=== PATIENT | male | born 1955 | race Caucasian/White ===

== ENCOUNTER → 2016-06-25 | Outpatient (CLI) | payer OTHER ==
[~2016-06-25] MED LIST: AMLO-110 PO; CHOL100027 PO; FLNIN NAE; HYDR12.55 PO; LISI-461 PO; MELO15TA10 PO; MULT-618 PO; Potassium PO; RANI150T3 PO
--- NOTE | 2016-06-25 08:41 | DIAGNOSTIC IMAGING REPORT ---
CHEST 2 VIEWS ROUTINE CLINICAL HISTORY: Preoperative evaluation. COMPARISON STUDY: Chest radiograph April 13, 2013. FINDINGS: Lung volumes are normal. No consolidation is identified. There is no pneumothorax or pleural effusion. Cardiac size is normal. Mediastinal contours are normal. There is no evidence of pulmonary edema. An 8 mm nodular density projects over the right upper lung. IMPRESSION: 1. 8 mm nodular density within the right upper lung. This is probably artifactual although a pulmonary nodule could appear similar. A chest CT is recommended. 2. No acute cardiopulmonary findings. Electronically signed by: Turner Boyd M.D. 06/25/2016 8:39 AM Dictated Date/Time: 06/25/2016 8:36 AM
[2016-06-25 09:38] LABS: BASO % 0.5 %; BASO ABS # 0.04 K/uL (0-0.2); COMPLETE YES; EOS % 2.6 %; HEMATOCRIT 46.7 % (42-52); IG% 0.1 %; LYMPH ABS # 2.99 K/uL (1.2-3.4); MEAN CELL VOLUME 90.5 fL (80-100); MEAN CORPUSCULAR HEMOGLOBIN 31.6 pg (25-34); MEAN CORPUSCULAR HGB CONC 34.9 g/dl (32-36); MEAN PLATELET VOLUME 9.9 fL (7.4-10.4); MONO % 6.7 %; NEUT % 51.1 %; PLATELET COUNT 290 K/uL (130-400); RED BLOOD COUNT 5.16 M/uL (4.7-6.1); WHITE BLOOD COUNT 7.66 K/uL (4.8-10.8)
[2016-06-25 10:03] LABS: BLOOD UREA NITROGEN 18 mg/dl (7-18); GLUCOSE 95 mg/dl (70-99)
[2016-06-25 10:04] LABS: BUN/CREATININE RATIO 17.7 (10-20); CALCIUM 8.9 mg/dl (8.5-10.1); CARBON DIOXIDE 29 mmol/L (21-32); CHLORIDE 107 mmol/L (98-107); POTASSIUM 3.8 mmol/L (3.5-5.1); SODIUM 141 mmol/L (136-145)
== END | disposition home or self-care (01) ==
LOC: C.LAB 07:50
PROVIDERS: ATTEND Orthopaedic Surgery
DX: Z01.810 Encounter for preprocedural cardiovascular examination (principal); Z01.811 Encounter for preprocedural respiratory examination; Z01.812 Encounter for preprocedural laboratory examination; M25.511 Pain in right shoulder; R91.8 Other nonspecific abnormal finding of lung field; R00.1 Bradycardia, unspecified

== ENCOUNTER → 2016-06-29 | Outpatient (CLI) | payer OTHER ==
--- NOTE | 2016-06-29 15:37 | DIAGNOSTIC IMAGING REPORT ---
CHEST 2 VIEWS ROUTINE CLINICAL HISTORY: ABNORMAL CXR lung nodule COMPARISON STUDY: 06/25/2016 FINDINGS: Nodule right apex is no longer identified. Lungs are considered clear. Diaphragms are smooth. IMPRESSION: Lungs are now considered clear. No evidence for pulmonary nodularity on the current study Electronically signed by: Michael Goodwin M.D. 06/29/2016 3:34 PM Dictated Date/Time: 06/29/2016 3:34 PM
== END | disposition home or self-care (01) ==
LOC: C.RAD 15:18
PROVIDERS: ATTEND Family Medicine
DX: R93.8 Abnormal findings on diagnostic imaging of other specified body structures (principal)

== ENCOUNTER 2018-04-20 11:36 | Inpatient (IN) ==
[2018-04-20] MEDS ORDERED: ASPIRIN CHEW 324 MG ONE (11:49)
[2018-04-20] MEDS ORDERED: NITROGLYCERIN SL 0.4 MG/TAB TAB ONE (11:49)
[2018-04-20] MEDS ORDERED: ASPIRIN CHEW 324 MG PO STA (11:51)
[2018-04-20] MEDS ORDERED: NITROGLYCERIN SL 0.4 MG/TAB TAB SL STA (11:51)
[2018-04-20 12:03] LABS: Basophils # (auto) 0.07 K/uL (0-0.2); Basophils % (auto) 0.8 %; Eosinophils # (auto) 0.42 K/uL (0-0.5); Eosinophils % (auto) 4.7 %; Hematocrit (blood only) 50.2 % (42-52); Hemoglobin 17.4 g/dL (14.0-18.0); Immature Granulocytes # (auto) 0.02 K/uL (0.00-0.02); Immature Granulocytes % (auto) 0.2 %; Lymphocytes # (auto) 3.19 K/uL (1.2-3.4); Lymphocytes % (auto) 35.9 %; Mean Corpuscular Hgb Conc 34.7 g/dL (32-36); Mean Corpuscular Volume 89.5 fL (80-100); Mean Platelet Volume 9.9 fL (7.4-10.4); Monocytes # (auto) 0.62 K/uL (0.11-0.59); Neutrophils # (auto) 4.57 K/uL (1.4-6.5); Neutrophils % (auto) 51.4 %; Platelet Count 273 K/uL (130-400); RDW Standard Deviation 42.4 fL (36.4-46.3); Red Blood Count 5.61 M/uL (4.7-6.1); White Blood Count 8.89 K/uL (4.8-10.8)
[2018-04-20 12:21] LABS: Albumin Level 3.7 gm/dl (3.4-5.0); Calcium 9.4 mg/dl (8.5-10.1); Creatinine Clr Calc Pharmacy 75.2 ml/min; Est GFR (African American) 84.8; Est GFR (Non-African American) 73.2; Potassium 3.5 mmol/L (3.5-5.1)
--- NOTE | 2018-04-20 12:31 | XRay Report ---
XR chest 1V portable CLINICAL HISTORY: Chest Pain dyspnea COMPARISON STUDY: 04/13/2013 FINDINGS: Chronic interstitial change left base. Lungs otherwise appear clear. Diaphragms are smooth. IMPRESSION: Chronic change. No acute process. The above report was generated using voice recognition software. It may contain grammatical, syntax or spelling errors. Electronically signed by: Michael Goodwin M.D. 04/20/2018 12:30 PM
[2018-04-20 12:38] LABS: Albumin Globulin Ratio 0.9 (0.9-2); Bilirubin,Total 0.8 mg/dl (0.2-1); Total Protein 7.7 gm/dl (6.4-8.2); Troponin I 0.136 ng/ml (0-0.045)
[2018-04-20] MEDS ORDERED: METOPROLOL TARTRATE 1 MG/ML VIAL IV STA (12:44)
[2018-04-20] MEDS ORDERED: NITROGLYCERIN 2% OINTMENT 30GM TUBE EXT SCH (12:45)
[2018-04-20] MEDS ORDERED: MIDAZOLAM HCL 1 MG/ML 2ML VIAL ONE (12:57)
[2018-04-20] MEDS ORDERED: NiCARDipine HCL INJ 2.5 MG/ML 10 ML AMP ONE (12:58)
[2018-04-20] MEDS ORDERED: fentaNYL citrate 100 MCG/2 ML VIAL ONE (12:58)
[2018-04-20] MEDS ORDERED: NITROGLYCERIN/D5W 100MCG/ML 20ML SYR ONE (12:58)
[2018-04-20] MEDS ORDERED: HEPARIN (PORCINE) 1000 UNIT/ML 10 ML (CATH LAB USE ONLY) ONE (12:58)
[2018-04-20] MEDS ORDERED: TICAGRELOR 90 MG TAB PO ONE (13:38)
--- NOTE | 2018-04-20 14:05 | Cardiac Catheterization ---
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 Pt was found to have a 90% RCA stenosis which was direct stented by a 3.0X15 mm ROZ and post dil with a 3.5x12mm NC balloon. 0% risedual stenosis with marjorie 3 flow CAD Presenation: Non STEMI Standard Exercise Test: No and Risk/Extent of Ischemia Stress Echocardiogram: No, Yes - Unavailable and Risk/Extent of Ischemia ( Intermediate) Stress Testing w/SPECT MPI: No and Risk/Extent of Ischemia (Intermediate) Coronary Anatomy Dominant: Right LAD (% Stenosis): Proximal RCA (% Stenosis): Mid (90%) Left Ventricular Angiography Wall Motion: Anterior Mitral Regurgitation: None Diagnostic Physicians Name: Macie Covington Closure Device Closure Device: Radial Band Recommendations: Medical Therapy and/or Counseling, PCI without planned CABG and Management Recommendatons PCI Indication: Unstable Angina First Noted: Subsequent EKG Lesion Segment Name: Mid RCA Culprit Artery: Yes Stenosis Prior to Rx (%): 90 Chronic Total Occlusion: No IVUS: No FFR: No Previously Treated Lesion: No Lesion Complexity: Non-High/Non-C Lesion Length (mm): 12 Thrombus Present: Yes Bifurcation Lesion: No Guidewire Across Lesion: Yes
--- NOTE | 2018-04-20 14:21 | History & Physical Report ---
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 Home Medications Home Medications Medication Instructions Recorded Confirmed Type amlodipine 5 mg PO QAM 04/20/18 04/20/18 History atorvastatin 20 mg PO HS 04/20/18 04/20/18 History cyclobenzaprine 10 mg PO HS PRN 04/20/18 04/20/18 History fluticasone [Flonase Allergy 2 spray INTRANASAL QAM 04/20/18 04/20/18 History Relief] lisinopril 20 mg PO QAM 04/20/18 04/20/18 History meloxicam 15 mg PO QAM 04/20/18 04/20/18 History rdkhjjnu-imq-EF-lycopen-lutein 1 tab PO QAM 04/20/18 04/20/18 History [Centrum Silver Ultra Men's] potassium 0 mg PO QAM 04/20/18 04/20/18 History ranitidine HCl 150 mg PO BID 04/20/18 04/20/18 History Past Med/Surg History Social History Feels Safe at Home: Yes Smoking Status: Former smoker Review of Systems All systems reviewed & are unremarkable except as noted in HPI & below Physical Exam 2 Vital Signs (Past 24 Hours): Last Vital Signs Pulse 71 04/20/18 12:52 Resp 17 04/20/18 11:45 BP 125/85 04/20/18 12:52 Pulse Ox 93 04/20/18 12:52 Constitutional: WD/WN, vitals as above well developed Eyes: PERRL, conjunctivae normal, anicteric sclerae Respiratory: normal respiratory effort, lungs clear to auscultation Cardiovascular: RRR, no murmur, no edema Gastrointestinal (Abdomen): normal bowel sounds, soft, nontender, no hepatosplenomegaly Results & Data Laboratory Results Positive trop Diagnostic Findings ekg nsr with st d lat Medications Administered none ECG Indication: chest pain Rate (beats per minute): 90 Rhythm: normal sinus Findings: + ST depression Comparison ECG Date: no prior available Code Status & VTE Plan VTE Prophylaxis Plan VTE Prophylaxis will be ordered: No
[2018-04-20] MEDS ORDERED: ACETAMINOPHEN 325 MG TAB PO PRN (14:58)
[2018-04-20] MEDS ORDERED: TICAGRELOR 90 MG Homepack PO PRN (15:17)
[2018-04-20] MEDS ORDERED: ALBUTEROL HFA 8 GM INHALER INH PRN (15:36)
--- NOTE | 2018-04-20 15:50 | History & Physical Report ---
Date of Service April 20, 2018 Assessment & Plan (1) NSTEMI (non-ST elevated myocardial infarction): Pt had CP after carrying vanity up flight of stairs. Presented to ER with ST depression in inferior leads and troponin: 0.136. He received nitro, ASA 324mg, metoprolol 2.5mg IV. Pt was taken to lab analyst and had RJ to RCA. Post op pt reports feeling good and denies any chest pain or SOB. -cardiology recommends ASA 81mg daily lifelong, simvastatin 40mg, ticagrelor 90 BID x 1 year -lipid panel in am -cardiology consult, appreciate recommendations (2) HTN (hypertension): Stable -continue amlodipine -hold am lisinopril and monitor BP and bmp (3) Dyslipidemia: -continue statin (4) Elevated glucose: Random BS -A1c in am (5) COPD (chronic obstructive pulmonary disease): No exacerbation -continue spiriva, albuterol prn (6) Depression: Stable -continue celexa (7) GERD (gastroesophageal reflux disease): -continue ranitadine DVT Prophylaxis -SCDs Follows with Dr Naranjo for routine care Pt was seen with Dr Benson. See addendum History of Present Illness Chief Complaint: CP Primary Care Provider: Michael Naranjo Pt is 63 y/o M with PMH COPD, BPH, HTN, dyslipidemia, depression, GERD presented to ER with c/o CP started approx 11am today after carrying vanity up stairs. Reports pain left side chest and was constant, relieved a little when arrived in ER and reports CP returned. 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 Denies fever/chills, diaphoresis, N/V/D/C, HUYNH, dizziness, syncope, vision changes, neck pain, palpitations, cough, sore throat, choking, otalgia, rhinorrhea, abdominal pain, paresthesias, extremity weakness, extremity edema, rashes, urinary symptoms. FH- fatal CT father age 58 In ER reported EKG changes with elevated troponin. He received nitro, ASA 324mg , metoprolol 2.5mg IV. Pt was taken to lab analyst and had RJ to RCA. Post op pt reports feeling good and denies any chest pain or SOB. Allergies Allergy/AdvReac Type Severity Reaction Status Date / Time hydrochlorothiazide Allergy Intermediate Muscle Verified 04/20/18 12:37 cramping. Home Medications Home Medications Medication Instructions Recorded Confirmed Type albuterol sulfate 2 puff INHALATION Q6H PRN 04/20/18 04/20/18 History amlodipine 5 mg PO QAM 04/20/18 04/20/18 History atorvastatin 20 mg PO HS 04/20/18 04/20/18 History citalopram [Celexa] 10 mg PO DAILY 04/20/18 04/20/18 History cyclobenzaprine 10 mg PO HS PRN 04/20/18 04/20/18 History fluticasone [Flonase Allergy 2 spray INTRANASAL QAM 04/20/18 04/20/18 History Relief] lisinopril 20 mg PO QAM 04/20/18 04/20/18 History meloxicam 15 mg PO QAM 04/20/18 04/20/18 History whebuxat-ils-GG-lycopen-lutein 1 tab PO QAM 04/20/18 04/20/18 History [Centrum Silver Ultra Men's] potassium 0 mg PO QAM 04/20/18 04/20/18 History ranitidine HCl 150 mg PO BID 04/20/18 04/20/18 History tiotropium bromide [Spiriva with 1 cap INHALATION DAILY 04/20/18 04/20/18 History HandiHaler] aspirin [Ecotrin Low Strength] 81 mg PO QAM 30 Days #30 tab 04/21/18 Rx atorvastatin 40 mg PO QAM 30 Days #30 tab 04/21/18 Rx metoprolol succinate 12.5 mg PO BID 30 Days #30 tab 04/21/18 Rx nitroglycerin [Nitrostat] 0.3 mg SUBLINGUAL UD #14 tab 04/21/18 Rx ticagrelor [Brilinta] 90 mg PO BID 30 Days #60 tab 04/21/18 Rx Past Med/Surg History Medical History BPH (benign prostatic hyperplasia) (Chronic) COPD (chronic obstructive pulmonary disease) (Chronic) Depression (Chronic) GERD (gastroesophageal reflux disease) (Chronic) HTN (hypertension) (Chronic) Dyslipidemia (Chronic) Surgical History History of arthroscopy of knee (Resolved) History of shoulder surgery (Resolved) History of inguinal hernia repair (Resolved) Family History Other CAD (coronary artery disease) Diabetes HTN (hypertension) Stroke Social History Current Living Situation: Spouse Other Information That Helps Us Care for You: No Feels Safe at Home: Yes Smoking Status: Former smoker Smoking End Date: Quit 2010. Smoked 1ppd x 41 years Hx Alcohol Use: Yes Alcohol Intake Frequency: a few times a month Hx Substance Use: Yes substance use type: marijuana Beliefs That Will Affect Care: None Preferred Language: Serbian Communication Ability: Effective Review of Systems All systems reviewed & are unremarkable except as noted in HPI & below Physical Exam 2 Vital Signs (Past 24 Hours): Last Vital Signs Temp 36.4 C L 04/20/18 14:15 Pulse 68 04/20/18 14:15 Resp 18 04/20/18 14:15 BP 122/80 04/20/18 14:15 Pulse Ox 96 04/20/18 14:15 Physical Exam: General: no distress, WDWN Head: normocephalic, atraumatic Eyes: conjunctiva non-injected, anicteric ENT: normal inspection external ears, nose, mucous membranes moist Neck: supple, trachea midline Lungs: clear, no respiratory distress, no wheezing/rhonchi/rales CV: RRR, no murmur, no pretibial edema Abd: normal BS, soft, non-tender Ext: no cyanosis, no calf tenderness; Right wrist with pressure band intact with slight red blood noted under band, ROM fingers intact, brisk capillary refill Neuro: A&O x 3, no focal deficits noted, normal affect Skin: warm, dry Results & Data Laboratory Results Short CBC 04/20/18 Range/Units 11:45 WBC 8.89 (4.8-10.8) K/uL Hgb 17.4 (14.0-18.0) g/dL Hct 50.2 (42-52) % Plt Count 273 (130-400) K/uL BMP 04/20/18 11:45 Sodium 140 Potassium 3.5 Chloride 107 Carbon Dioxide 25 BUN 21 H Creatinine 1.08 Glucose 136 H Calcium 9.4 Cardiac Enzymes 04/20/18 Range/Units 11:45 Troponin I 0.136 H* (0-0.045) ng/ml Liver Function 04/20/18 Range/Units 11:45 Total Bilirubin 0.8 (0.2-1) mg/dl AST 20 (15-37) U/L ALT 36 (12-78) U/L Alkaline Phosphatase 128 H (45-117) U/L Albumin 3.7 (3.4-5.0) gm/dl Diagnostic Findings CXR: IMPRESSION: Chronic change. No acute process. ECG Additional Comments: EKG 12:33pm today with ST depression inferior leads Code Status & VTE Plan VTE Prophylaxis Plan VTE Prophylaxis will be ordered: No Supervising Physician Co-Signing Physician Notes Attending Addendum: delayed entry date of service as noted above care coordinated with LUIS ALFREDO Mora please refer to her notes for full details, I agree with her notes patient seen and examined, records reviewed by myself as well on exam, patient seen sitting up in bed comfortable watching TV denies chest pain, dyspnea reports reflux after eating dinner no other symptoms VS noted and reviewed oriented x3, not in distress, speaks in sentences with no effort nor accessory muscle use normal rate, regular rhythm, no murmurs clear breath sounds bilaterally non distended, soft, nontender no bipedal edema, erythema, warmth no neuro deficits trop 0.13 ASSESSMENT AND PLAN ACUTE MYOCARDIAL INFARCTION S/P rj to rca - ASA, Brillinta started stable overall HYPERTENSION Metoprolol added monitor BP other diagnoses and plan of care as per LUIS ALFREDO Mora notes Morales Benson MD
--- NOTE | 2018-04-20 16:14 | Cardiology Consultation ---
Date of Consultation April 20, 2018 Assessment & Plan (1) Acute coronary syndrome: Patient presented with acute coronary syndrome with dynamic EKG changes possibly in part of marked hypertensive response as well. Is undergone successful coronary intervention for high-grade single-vessel obstruction disease with mid right coronary stenting for large caliber vessel with long distribution. Recommendations: Intensify lipid-lowering therapies changed to atorvastatin 40 mg p.o. daily Add beta-naeem to her regimen to achieve optimal guideline medical therapy. ( Beta-naeem, FATUMA inhibitor, high-dose statin, antiplatelet therapy) Cardiac rehab will be consulted Off work minimum 3-day Echocardiogram will be reviewed in a.m. (2) HTN (hypertension): As above (3) Dyslipidemia: As above History of Present Illness Reason for Consultation: Acute coronary syndrome Requesting Physician: Dr. Benson Attending Physician: Morales Benson MD History of Present Illness Patient is a 63-year-old male without prior history of cardiac disease his past history is notable for hypertension, hyperlipidemia, chronic obstructive lung disease. Patient presents this admission noting intermittent left arm and neck pain for approximately 1-2 weeks. Today after moderately vigorous exertion carrying a vanity upstairs developed substernal chest pain rating the left shoulder and neck presented to the emergency room where he marked hypertension was observed as well as non-dynamic ST segment changes with transient inferior ST elevation followed by inversion were observed. Symptoms remain persistent troponins were elevated and patient was taken urgently to the diagnostic cardiac catheterization lab where high-grade single-vessel disease was found 90% narrowing mid right coronary artery. Patient received drug-eluting stent to the right coronary successfully is referred now for ongoing management Currently patient is comfortable he denies any chest pain shortness of breath neck and shoulder pains have resolved notes no fevers chills or productive cough notes no melena hematochezia dysuria hematuria notes only change recently has been addition of medications for depression, upward titration of lipid- lowering therapy prior to hospitalization. He denies fevers chills sweats cough hoarseness wheeze or hemoptysis notes no bleeding difficulties notes no melena hematochezia dysuria hematuria Allergies Allergy/AdvReac Type Severity Reaction Status Date / Time hydrochlorothiazide Allergy Intermediate Muscle Verified 04/20/18 12:37 cramping. Home Medications Home Medications Medication Instructions Recorded Confirmed Type albuterol sulfate 2 puff INHALATION Q6H PRN 04/20/18 04/20/18 History amlodipine 5 mg PO QAM 04/20/18 04/20/18 History atorvastatin 20 mg PO HS 04/20/18 04/20/18 History citalopram [Celexa] 10 mg PO DAILY 04/20/18 04/20/18 History cyclobenzaprine 10 mg PO HS PRN 04/20/18 04/20/18 History fluticasone [Flonase Allergy 2 spray INTRANASAL QAM 04/20/18 04/20/18 History Relief] lisinopril 20 mg PO QAM 04/20/18 04/20/18 History meloxicam 15 mg PO QAM 04/20/18 04/20/18 History qgcmubuc-few-CA-lycopen-lutein 1 tab PO QAM 04/20/18 04/20/18 History [Centrum Silver Ultra Men's] potassium 0 mg PO QAM 04/20/18 04/20/18 History ranitidine HCl 150 mg PO BID 04/20/18 04/20/18 History tiotropium bromide [Spiriva with 1 cap INHALATION DAILY 04/20/18 04/20/18 History HandiHaler] Patient History Medical History BPH (benign prostatic hyperplasia) (Chronic) COPD (chronic obstructive pulmonary disease) (Chronic) Depression (Chronic) GERD (gastroesophageal reflux disease) (Chronic) HTN (hypertension) (Chronic) Dyslipidemia (Chronic) Surgical History History of arthroscopy of knee (Resolved) History of shoulder surgery (Resolved) History of inguinal hernia repair (Resolved) Family History Other CAD (coronary artery disease) Diabetes HTN (hypertension) Stroke Social History Current Living Situation: Spouse Other Information That Helps Us Care for You: No Feels Safe at Home: Yes Smoking Status: Former smoker Smoking End Date: Quit 2010. Smoked 1ppd x 41 years Hx Alcohol Use: Yes Alcohol Intake Frequency: a few times a month Hx Substance Use: Yes substance use type: marijuana Beliefs That Will Affect Care: None Preferred Language: Armenian Communication Ability: Effective Review of Systems As per HPI Physical Exam 2 Vital Signs (Past 24 Hours): Last Vital Signs Temp 36.4 C L 04/20/18 14:15 Pulse 68 04/20/18 14:15 Resp 18 04/20/18 14:15 BP 122/80 04/20/18 14:15 Pulse Ox 96 04/20/18 14:15 Constitutional: WD/WN, vitals as above Eyes: PERRL, conjunctivae normal, anicteric sclerae ENMT: external ear and nose normal, oropharynx normal Neck: trachea midline, no thyromegaly Respiratory: normal respiratory effort, lungs clear to auscultation Cardiovascular: Rate/Rhythm: regular rate and regular rhythm Heart Sounds: normal S1 and normal S2; no gallop and no cardiac rub Vessels: radial pulses present (Right radial bandaged post procedure) Gastrointestinal (Abdomen): normal bowel sounds, soft, nontender, no hepatosplenomegaly Neurologic: PERRL, EOMI, accommodation nl, no face palsy, no dysarthria Psychiatric: A+Ox3, euthymic affect
--- NOTE | 2018-04-20 16:48 | Emergency Department Note ---
Entered by Elsy Bui acting as a scribe for History of Present Illness General Chief complaint: Chest Pain Stated complaint: CHEST PAIN, L ARM PAIN Source: patient Mode of arrival: ambulatory Limitations: no limitations History of Present Illness Onset (ago): hour(s) 1 Location: chest Radiation: other (left arm) Pain Consistency: + constant Maximum Pain Intensity: 5 Current Pain Intensity: 5 Quality: + sharp Relieved By: + none Exacerbated By: + none Associated symptoms: + shortness of breath and + other (-jaw pain) Treatments prior to arrival: none The patient is a 63 year old male who presents to the Emergency Room with complaints of chest pain for the past 1 hour. He states before the pain started , he moved a dresser in his home. The pain was briefly relieved by rest, but then returned. He describes the pain as radiating down to his left arm and feeling sharp in nature. He rates his pain as a 5/10 in severity. He admits to some shortness of breath. He denies any jaw pain. He denies any previous history of heart disease or AR's. No other exacerbating or remitting factors. Home Medications Home Medications Medication Instructions Recorded Confirmed Type albuterol sulfate 2 puff INHALATION Q6H PRN 04/20/18 04/20/18 History amlodipine 5 mg PO QAM 04/20/18 04/20/18 History atorvastatin 20 mg PO HS 04/20/18 04/20/18 History citalopram [Celexa] 10 mg PO DAILY 04/20/18 04/20/18 History cyclobenzaprine 10 mg PO HS PRN 04/20/18 04/20/18 History fluticasone [Flonase Allergy 2 spray INTRANASAL QAM 04/20/18 04/20/18 History Relief] lisinopril 20 mg PO QAM 04/20/18 04/20/18 History meloxicam 15 mg PO QAM 04/20/18 04/20/18 History oxxhiavv-vra-PR-lycopen-lutein 1 tab PO QAM 04/20/18 04/20/18 History [Centrum Silver Ultra Men's] potassium 0 mg PO QAM 04/20/18 04/20/18 History ranitidine HCl 150 mg PO BID 04/20/18 04/20/18 History tiotropium bromide [Spiriva with 1 cap INHALATION DAILY 04/20/18 04/20/18 History HandiHaler] Allergies Allergy/AdvReac Type Severity Reaction Status Date / Time hydrochlorothiazide Allergy Intermediate Muscle Verified 04/20/18 12:37 cramping. Past Med/Surg History Medical History BPH (benign prostatic hyperplasia) (Chronic) COPD (chronic obstructive pulmonary disease) (Chronic) Depression (Chronic) GERD (gastroesophageal reflux disease) (Chronic) HTN (hypertension) (Chronic) Dyslipidemia (Chronic) Surgical History History of arthroscopy of knee (Resolved) History of shoulder surgery (Resolved) History of inguinal hernia repair (Resolved) Family History Other CAD (coronary artery disease) Diabetes HTN (hypertension) Stroke Social History Current Living Situation: Spouse Other Information That Helps Us Care for You: No Feels Safe at Home: Yes Smoking Status: Former smoker Smoking End Date: Quit 2010. Smoked 1ppd x 41 years Hx Alcohol Use: Yes Alcohol Intake Frequency: a few times a month Hx Substance Use: Yes substance use type: marijuana Beliefs That Will Affect Care: None Preferred Language: Malay Communication Ability: Effective Review of Systems See HPI for pertinent positives & negatives. and A total of 10 systems reviewed and were otherwise negative Physical Exam Vital Signs Vital Signs - 24 hr 04/20/18 11:37 04/20/18 11:43 04/20/18 11:44 Temperature Temperature Source Sepsis Recent Fever Within 48 Hours No Sepsis New/Unexplained Change in Mental Status No Sepsis Action Taken by Nursing No Action Required Pulse Rate 78 72 75 Pulse Rate [Right Finger] Pulse Rhythm [Right Finger] Respiratory Rate 22 17 Respiratory Effort / Characteristics Respiratory Depth Respiratory Pattern Blood Pressure 178/131 H Blood Pressure [Right Arm] Blood Pressure Mean 146 Blood Pressure Mean [Right Arm] Blood Pressure Position [Right Arm] Pulse Oximetry 94 94 Oxygen Delivery Method Room Air Room Air Oxygen Flow Rate 04/20/18 11:45 04/20/18 11:50 04/20/18 11:56 Temperature Temperature Source Sepsis Recent Fever Within 48 Hours Sepsis New/Unexplained Change in Mental Status Sepsis Action Taken by Nursing Pulse Rate 77 Pulse Rate [Right Finger] 77 Pulse Rhythm [Right Finger] Respiratory Rate 17 Respiratory Effort / Characteristics Non-Labored Spontaneous Respiratory Depth Normal Respiratory Pattern Regular Blood Pressure 172/102 H Blood Pressure [Right Arm] 149/92 H Blood Pressure Mean 125 Blood Pressure Mean [Right Arm] 111 Blood Pressure Position [Right Arm] Lying Pulse Oximetry 93 96 95 Oxygen Delivery Method Room Air Room Air Room Air Oxygen Flow Rate 04/20/18 11:58 04/20/18 12:00 04/20/18 12:01 Temperature Temperature Source Sepsis Recent Fever Within 48 Hours Sepsis New/Unexplained Change in Mental Status Sepsis Action Taken by Nursing Pulse Rate 84 80 78 Pulse Rate [Right Finger] Pulse Rhythm [Right Finger] Respiratory Rate Respiratory Effort / Characteristics Respiratory Depth Respiratory Pattern Blood Pressure 147/88 H 149/92 H Blood Pressure [Right Arm] Blood Pressure Mean 107 111 Blood Pressure Mean [Right Arm] Blood Pressure Position [Right Arm] Pulse Oximetry 94 94 92 Oxygen Delivery Method Room Air Room Air Room Air Oxygen Flow Rate 04/20/18 12:10 04/20/18 12:16 04/20/18 12:20 Temperature Temperature Source Sepsis Recent Fever Within 48 Hours Sepsis New/Unexplained Change in Mental Status Sepsis Action Taken by Nursing Pulse Rate 75 81 76 Pulse Rate [Right Finger] Pulse Rhythm [Right Finger] Respiratory Rate Respiratory Effort / Characteristics Respiratory Depth Respiratory Pattern Blood Pressure 144/92 H Blood Pressure [Right Arm] Blood Pressure Mean 109 Blood Pressure Mean [Right Arm] Blood Pressure Position [Right Arm] Pulse Oximetry 94 95 93 Oxygen Delivery Method Room Air Room Air Room Air Oxygen Flow Rate 04/20/18 12:30 04/20/18 12:31 04/20/18 12:40 Temperature Temperature Source Sepsis Recent Fever Within 48 Hours Sepsis New/Unexplained Change in Mental Status Sepsis Action Taken by Nursing Pulse Rate 77 78 80 Pulse Rate [Right Finger] Pulse Rhythm [Right Finger] Respiratory Rate Respiratory Effort / Characteristics Respiratory Depth Respiratory Pattern Blood Pressure 155/90 H Blood Pressure [Right Arm] Blood Pressure Mean 111 Blood Pressure Mean [Right Arm] Blood Pressure Position [Right Arm] Pulse Oximetry 95 95 96 Oxygen Delivery Method Room Air Room Air Oxygen Flow Rate 04/20/18 12:46 04/20/18 12:50 04/20/18 12:52 Temperature Temperature Source Sepsis Recent Fever Within 48 Hours Sepsis New/Unexplained Change in Mental Status Sepsis Action Taken by Nursing Pulse Rate 84 83 71 Pulse Rate [Right Finger] Pulse Rhythm [Right Finger] Respiratory Rate Respiratory Effort / Characteristics Respiratory Depth Respiratory Pattern Blood Pressure 157/85 H 125/85 Blood Pressure [Right Arm] Blood Pressure Mean 109 98 Blood Pressure Mean [Right Arm] Blood Pressure Position [Right Arm] Pulse Oximetry 93 93 Oxygen Delivery Method Room Air Room Air Nasal Cannula Oxygen Flow Rate 2 04/20/18 14:15 Temperature 36.4 C L Temperature Source Oral Sepsis Recent Fever Within 48 Hours Sepsis New/Unexplained Change in Mental Status Sepsis Action Taken by Nursing Pulse Rate Pulse Rate [Right Finger] 68 Pulse Rhythm [Right Finger] Regular Respiratory Rate 18 Respiratory Effort / Characteristics Non-Labored Spontaneous Respiratory Depth Normal Respiratory Pattern Regular Blood Pressure Blood Pressure [Right Arm] 122/80 Blood Pressure Mean Blood Pressure Mean [Right Arm] 94 Blood Pressure Position [Right Arm] Pulse Oximetry 96 Oxygen Delivery Method Room Air Oxygen Flow Rate GENERAL: Sitting up in bed, alert, well appearing, well nourished, no distress, non-toxic EYE EXAM: normal conjunctiva. OROPHARYNX: no exudate, no erythema, lips, buccal mucosa, and tongue normal and mucous membranes are moist NECK: supple, no nuchal rigidity, no adenopathy, non-tender LUNGS: Clear to auscultation. Normal chest wall mechanics HEART: no murmurs, S1 normal and S2 normal ABDOMEN: abdomen soft, non-tender, normo-active bowel, sounds, no masses, no rebound or guarding. BACK: Back is symmetrical on inspection and there is no deformity, no midline tenderness, no CVA tenderness. SKIN: no rashes and no bruising UPPER EXTREMITIES: upper extremities are grossly normal. LOWER EXTREMITIES: No pitting edema. Calves are equal bilaterally. NEURO EXAM: Normal sensorium, cranial nerves II-XII intact, normal speech, no weakness of arms, no weakness of legs. Gross sensation intact. Course ED COURSE: Vital signs were reviewed and showed normal vital signs. The patients medical record was reviewed The above diagnostic studies were performed and reviewed. ED treatments and interventions as stated above. 1144: The patient was evaluated in room B1. A complete history and physical examination was performed. 1234: I reevaluated the patient. His chest pain is gone but he still complains of some left arm pain. 1238: I discussed the patients case with Dr[facility]. He recommends I call a heart alert and consult with Interventional Cardiology. 1245: I discussed the patients case with Dr. Covington, Interventional Cardiology. The patient will be taken to the Cardiac Catheterization Lab. 1300: Upon reevaluation, the patient is resting comfortably. I discussed my findings with the patient and he understands and agrees with the treatment plan. Based on the patients age, coexisting illnesses, exam and lab findings the decision to treat as an inpatient was made. The patient remained stable while under my care. The patient will be evaluated for further management. Consultations Consultation #1: I discussed the patients case with [facility]. He recommends I call a heart alert and consult with Interventional Cardiology. Time: 12:38 Consultation #2: I discussed the patients case with Dr. Covington, Interventional Cardiology. The patient will be taken to the Cardiac Catheterization Lab. Time: 12:45 Administered Medications Miscellaneous (Pending Order) 1 ea N/A QS VERONIKA Stop: 05/20/18 15:59 Last Admin: 04/20/18 16:13 Dose: Not Given Discontinued Medications Aspirin (Aspirin) Confirm Administered Dose 324 mg .ROUTE .STK-MED ONE Stop: 04/20/18 11:50 Last Admin: 04/20/18 11:51 Dose: 324 mg Aspirin (Aspirin) 324 mg PO NOW STA Stop: 04/20/18 11:52 Last Admin: 04/20/18 12:22 Dose: Not Given Fentanyl Citrate (Fentanyl Citrate) Confirm Administered Dose 100 mcg .ROUTE .STK-MED ONE Stop: 04/20/18 12:59 Last Increment: 04/20/18 14:17 Dose: 25 mcg Heparin Sodium (Porcine) (Heparin Iv Bolus ([facility] Use Only)) Confirm Administered Dose 10,000 units .ROUTE .STK-MED ONE Stop: 04/20/18 12:59 Last Admin: 04/20/18 14:17 Dose: 10,000 units Heparin Sodium/Sodium Chloride (Heparin Sod/Nss 2 Units/Ml) Confirm Administered Dose 3,000 units IV .STK-MED ONE Stop: 04/20/18 12:59 Last Admin: 04/20/18 14:17 Dose: 3,000 units Metoprolol Tartrate (Lopressor) 2.5 mg IV NOW STA Stop: 04/20/18 12:45 Last Admin: 04/20/18 12:47 Dose: 2.5 mg Midazolam HCl (Versed) Confirm Administered Dose 2 mg .ROUTE .STK-MED ONE Stop: 04/20/18 12:58 Last Increment: 04/20/18 14:16 Dose: 1 mg Nicardipine HCl (Cardene) Confirm Administered Dose 25 mg .ROUTE .STK-MED ONE Stop: 04/20/18 12:59 Last Admin: 04/20/18 14:16 Dose: 25 mg Nitroglycerin (Nitrostat) Confirm Administered Dose 0.4 mg .ROUTE .STK-MED ONE Stop: 04/20/18 11:50 Last Admin: 04/20/18 11:51 Dose: 0.4 mg Nitroglycerin (Nitrostat) 0.4 mg SL NOW STA Stop: 04/20/18 11:52 Last Admin: 04/20/18 12:22 Dose: Not Given Nitroglycerin/Dextrose (Nitroglycerin/D5w 100 Mcg/Ml 20ml Syringe) Confirm Administered Dose 2,000 mcg .ROUTE .STK-MED ONE Stop: 04/20/18 12:59 Last Admin: 04/20/18 14:17 Dose: 2,000 mcg Ticagrelor (Brilinta) Confirm Administered Dose 180 mg PO .STK-MED ONE Stop: 04/20/18 13:39 Last Admin: 04/20/18 14:16 Dose: 180 mg Medical Decision Making Differential Diagnosis Differential diagnoses includes but is not limited to acute coronary syndrome, myocardial infarction, pericarditis, pulmonary embolus, aortic dissection, pneumonia, pneumothorax, musculoskeletal, shingles, esophageal. Medical Records Attestation: I reviewed the patient's medical records. Home Medications Current Medication List: was personally reviewed by me Laboratory Data Attestation: I reviewed the patient's lab results. Result diagrams: 04/20/18 11:45 04/20/18 11:45 Lab Results 04/20/18 04/20/18 04/20/18 Range/Units 11:45 11:45 11:57 WBC 8.89 (4.8-10.8) K/uL RBC 5.61 (4.7-6.1) M/uL Hgb 17.4 (14.0-18.0) g/dL Hct 50.2 (42-52) % MCV 89.5 (80-100) fL MCH 31.0 (25-34) pg MCHC 34.7 (32-36) g/dL RDW Std Deviation 42.4 (36.4-46.3) fL RDW Coeff of Shayne 13.0 (11.5-14.5) % Plt Count 273 (130-400) K/uL MPV 9.9 (7.4-10.4) fL Immature Gran % (Auto) 0.2 % Neut % (Auto) 51.4 % Lymph % (Auto) 35.9 % [place] % (Auto) 7.0 % Eos % (Auto) 4.7 % Baso % (Auto) 0.8 % Immature Gran # (Auto) 0.02 (0.00-0.02) K/uL Neut # (Auto) 4.57 (1.4-6.5) K/uL Lymph # (Auto) 3.19 (1.2-3.4) K/uL [place] # (Auto) 0.62 H (0.11-0.59) K/uL Eos # (Auto) 0.42 (0-0.5) K/uL Baso # (Auto) 0.07 (0-0.2) K/uL Sodium 140 (136-145) mmol/L Potassium 3.5 (3.5-5.1) mmol/L Chloride 107 (98-107) mmol/L Carbon Dioxide 25 (21-32) mmol/L Anion Gap 8.0 (3-11) BUN 21 H (7-18) mg/dl Creatinine 1.08 (0.6-1.4) mg/dl Est Cr Clr Drug Dosing 75.2 ml/min Est GFR ( Amer) 84.8 Est GFR (Non-Af Amer) 73.2 BUN/Creatinine Ratio 19.0 (10-20) Glucose 136 H (70-99) mg/dl Calcium 9.4 (8.5-10.1) mg/dl Total Bilirubin 0.8 (0.2-1) mg/dl AST 20 (15-37) U/L ALT 36 (12-78) U/L Alkaline Phosphatase 128 H (45-117) U/L POC Troponin I 0.06 H (0-0.045) ng/ml Troponin I 0.136 H* (0-0.045) ng/ml Total Protein 7.7 (6.4-8.2) gm/dl Albumin 3.7 (3.4-5.0) gm/dl Globulin 4.0 (2.5-4.0) gm/dl Albumin/Globulin Ratio 0.9 (0.9-2) Lipase 135 (73-393) U/L Imaging Data Radiologist's Impression: Radiology results as stated below per my review and the radiologist's interpretation: XR chest 1V portable CLINICAL HISTORY: Chest Pain dyspnea COMPARISON STUDY: 04/13/2013 FINDINGS: Chronic interstitial change left base. Lungs otherwise appear clear. Diaphragms are smooth. IMPRESSION: Chronic change. No acute process. The above report was generated using voice recognition software. It may contain grammatical, syntax or spelling errors. Electronically signed by: Michael Goodwin M.D. 04/20/2018 12:30 PM ECG Data Attestation: I personally reviewed and interpreted this ECG as follows: Indication: chest pain Rate (beats per minute): 70 Rhythm: sinus rhythm Findings: + other (normal axis, slight elevation in inferior leads, flipped T- waves in high lateral leads) Comparison ECG Date: from (06/25/2016) Change: the following changes noted (Changes in AVL and high lateral leads are new, as well as changes in ST leads) Additional Comments: 2nd EKG: Sinus rhythm, rate of 78, ST depression in anterior leads, elevation in inferior leads has improved when compared to previous. 3rd EKG: Sinus rhythm, rate of 77, normal axis, ST depression in inferior leads , TWI in high lateral leads has improved compared to previous. Blood Pressure Blood Pressure Findings: Elevated blood pressure Blood Pressure Disposition: further management by hospitalist AWAIS Narrative Patient is a 63-year-old male with a past medical history of hypertension that presents the ER for chest pain associate with shortness of breath and left arm pain with exertion. Upon arrival to the ER initial EKG had a poor baseline but did show some mild elevations in the inferior leads. He was given nitro and aspirin. Repeat EKG showed improvement with flipped T waves in the high lateral leads. His pain continued to improve and resolve. His pain restarted and a fourth EKG was obtained at this time he had ST depressions. By this time his troponin had come back positive at 0.1. Discussed with cardiology. They agree with making this gentleman a STEMI alert. STEMI alert was called. I did give the patient additional nitroglycerin and IV Lopressor. Heart rate blood pressure trended down. His symptoms completely resolved. Based on his symptoms , dynamic EKG changes and elevated troponin he was taken to the [facility] by Dr. Macie Covington. One stent was placed in the RCA. Both patient and daughter and family were updated at bedside prior to this. Impression & Plan NSTEMI (non-ST elevated myocardial infarction), Unstable angina, Acute coronary syndrome Critical Care Time I have personally spent greater than 35 minutes of critical care time in the direct management of this patient. This includes bedside care, interpretation of diagnostic studies, and testing, discussion with consultants, patient, and family members, and other required patient management activities. This 35 minutes is in excess of all separately billable procedures. Critical Care Time: Yes Total Critical Care Time: 35 Discharge Plan Visit Data Chief Complaint: Chest Pain Stated Complaint: CHEST PAIN, L ARM PAIN ED Provider: Nelson Maldonado Discharge Problem: NSTEMI (non-ST elevated myocardial infarction), Unstable angina, Acute coronary syndrome Patient Disposition: Being Evaluated by Surgeon Discharge Instructions Interventions: ED Discharge Assessment Last Done: 04/20/18 13:12 The scribe's documentation has been prepared under my direction and personally reviewed by me in its entirety. I confirm that the note above accurately reflects all work, treatment, procedures, and medical decision making performed by me.
[2018-04-20] MEDS ORDERED: INFLUENZA ADMINISTRATION CHARGE ONE (19:00)
[2018-04-20] MEDS ORDERED: INFLUENZA VIRUS QUAD VACCINE 0.5 ML SYR IM ONE (19:00)
[2018-04-20] MEDS: METOPROLOL SUCC 25MG EXT REL TAB PO SCH (20:11)
[2018-04-20] MEDS ORDERED: SIMVASTATIN 40 MG TAB PO SCH (21:00)
[2018-04-21] MEDS: TICAGRELOR 90 MG TAB PO SCH ×2 (00:50→14:40)
[2018-04-21 03:02] LABS: Basophils # (auto) 0.06 K/uL (0-0.2); Basophils % (auto) 0.5 %; Eosinophils # (auto) 0.45 K/uL (0-0.5); Hematocrit (blood only) 46.4 % (42-52); Hemoglobin 16.2 g/dL (14.0-18.0); Immature Granulocytes # (auto) 0.03 K/uL (0.00-0.02); Immature Granulocytes % (auto) 0.3 %; Lymphocytes # (auto) 2.76 K/uL (1.2-3.4); Lymphocytes % (auto) 24.7 %; Mean Corpuscular Hgb Conc 34.9 g/dL (32-36); Mean Corpuscular Volume 88.4 fL (80-100); Mean Platelet Volume 9.6 fL (7.4-10.4); Monocytes # (auto) 0.79 K/uL (0.11-0.59); Monocytes % (auto) 7.1 %; Neutrophils # (auto) 7.09 K/uL (1.4-6.5); Neutrophils % (auto) 63.4 %; Platelet Count 255 K/uL (130-400); RDW Coefficient of Variation 12.9 % (11.5-14.5); RDW Standard Deviation 41.8 fL (36.4-46.3); Red Blood Count 5.25 M/uL (4.7-6.1); White Blood Count 11.18 K/uL (4.8-10.8)
[2018-04-21 03:17] LABS: Partial Thromboplastin Time 26.6 Seconds (21.0-31.0)
[2018-04-21 03:19] LABS: BUN Creatinine Ratio 18.4 (10-20); Calcium 8.4 mg/dl (8.5-10.1); Creatinine Clr Calc Pharmacy 87.2 ml/min; Est GFR (African American) 108.2; Est GFR (Non-African American) 93.4; Potassium 3.5 mmol/L (3.5-5.1)
[2018-04-21] MEDS ORDERED: AMLODIPINE BESYLATE 5 MG TAB PO SCH ×2 (04:00→09:00)
[2018-04-21 06:53] LABS: Estimated Average Glucose 120 mg/dl
[2018-04-21] MEDS: METOPROLOL SUCC 25MG EXT REL TAB PO SCH (08:07)
[2018-04-21] MEDS ORDERED: FLUTICASONE PROPIONATE NA SPR 16 GM BTL NAE SCH (09:00)
[2018-04-21] MEDS ORDERED: CITALOPRAM 20 MG TAB PO SCH (09:00)
[2018-04-21] MEDS ORDERED: ASPIRIN 81 MG ECTAB PO SCH (09:00)
[2018-04-21] MEDS ORDERED: ATORVASTATIN 40 MG TAB PO SCH (09:00)
[2018-04-21] MEDS ORDERED: TIOTROPIUM BROMIDE 5 PUFF/90 MCG INH INH SCH (09:00)
[2018-04-21] MEDS ORDERED: INFLUENZA ADMINISTRATION CHARGE ONE (12:00)
[2018-04-21] MEDS ORDERED: INFLUENZA VIRUS QUAD VACCINE 0.5 ML SYR IM ONE (12:00)
--- NOTE | 2018-04-21 12:04 | Cardiology Progress Note ---
Date of Service April 21, 2018 Assessment & Plan (1) Acute coronary syndrome: Patient presented with acute coronary syndrome with dynamic EKG changes possibly in part of marked hypertensive response as well. Is undergone successful coronary intervention for high-grade single-vessel obstruction disease with mid right coronary stenting for large caliber vessel with long distribution. Recommendations: Intensify lipid-lowering therapies changed to atorvastatin 40 mg p.o. daily Add beta-naeem to her regimen to achieve optimal guideline medical therapy. ( Beta-naeem, FATUMA inhibitor, high-dose statin, antiplatelet therapy) Cardiac rehab will be consulted Off work rest of week Follow-up cardiology being arranged 2-4 weeks time. See PCP Discussed use of dual antiplatelet therapy uninterrupted minimum 6 months (2) HTN (hypertension): As above Would continue prehospital doses of lisinopril and amlodipine add beta-naeem (3) Dyslipidemia: As above Subjective Patient seen and examined, chart medications telemetry reviewed. No arrhythmias or difficulties overnight denies any chest pains or shortness of breath blood pressures are trending slightly lower but labile at times. Notes her right radial access site is healing well. He is feeling improved Physical Exam 2 Vital Signs (Past 24 Hours): Last Vital Signs Temp 36.7 C 04/21/18 11:31 Pulse 59 L 04/21/18 11:31 Resp 19 04/21/18 11:31 BP 170/86 H 04/21/18 11:31 Pulse Ox 95 04/21/18 11:31 Constitutional: WD/WN, vitals as above Eyes: PERRL, conjunctivae normal, anicteric sclerae ENMT: external ear and nose normal, oropharynx normal Neck: trachea midline, no thyromegaly Respiratory: normal respiratory effort, lungs clear to auscultation Cardiovascular: Rate/Rhythm: regular rate and regular rhythm Heart Sounds: normal S1 and normal S2; no gallop and no cardiac rub Vessels: radial pulses present (Right radial access site clean) Gastrointestinal (Abdomen): normal bowel sounds, soft, nontender, no hepatosplenomegaly Neurologic: PERRL, EOMI, accommodation nl, no face palsy, no dysarthria Psychiatric: A+Ox3, euthymic affect Results & Data Laboratory Results Laboratory Results - last 24 hr 04/20/18 04/20/18 04/20/18 11:45 11:45 11:57 WBC RBC Hgb Hct MCV MCH MCHC RDW Std Deviation RDW Coeff of Shayne Plt Count MPV Immature Gran % (Auto) Neut % (Auto) Lymph % (Auto) [place] % (Auto) Eos % (Auto) Baso % (Auto) Immature Gran # (Auto) Neut # (Auto) Lymph # (Auto) [place] # (Auto) Eos # (Auto) Baso # (Auto) APTT PTT Ratio Sodium 140 Potassium 3.5 Chloride 107 Carbon Dioxide 25 Anion Gap 8.0 BUN 21 H Creatinine 1.08 Est Cr Clr Drug Dosing 75.2 Est GFR ( Amer) 84.8 Est GFR (Non-Af Amer) 73.2 BUN/Creatinine Ratio 19.0 Glucose 136 H Estimat Average Glucose Hemoglobin A1c Calcium 9.4 Total Bilirubin 0.8 AST 20 ALT 36 Alkaline Phosphatase 128 H POC Troponin I 0.06 H Troponin I 0.136 H* Total Protein 7.7 Albumin 3.7 Globulin 4.0 Albumin/Globulin Ratio 0.9 Triglycerides Cholesterol LDL Cholesterol, Calc VLDL Cholesterol, Calc HDL Cholesterol Cholesterol/HDL Ratio Lipase 135 Hepatitis C Ab Screen Neg 04/20/18 04/21/18 04/21/18 17:59 00:07 02:51 WBC 11.18 H RBC 5.25 Hgb 16.2 Hct 46.4 MCV 88.4 MCH 30.9 MCHC 34.9 RDW Std Deviation 41.8 RDW Coeff of Shayne 12.9 Plt Count 255 MPV 9.6 Immature Gran % (Auto) 0.3 Neut % (Auto) 63.4 Lymph % (Auto) 24.7 [place] % (Auto) 7.1 Eos % (Auto) 4.0 Baso % (Auto) 0.5 Immature Gran # (Auto) 0.03 H Neut # (Auto) 7.09 H Lymph # (Auto) 2.76 [place] # (Auto) 0.79 H Eos # (Auto) 0.45 Baso # (Auto) 0.06 APTT PTT Ratio Sodium Potassium Chloride Carbon Dioxide Anion Gap BUN Creatinine Est Cr Clr Drug Dosing Est GFR ( Amer) Est GFR (Non-Af Amer) BUN/Creatinine Ratio Glucose Estimat Average Glucose Hemoglobin A1c Calcium Total Bilirubin AST ALT Alkaline Phosphatase POC Troponin I Troponin I 2.690 H* 6.480 H* Total Protein Albumin Globulin Albumin/Globulin Ratio Triglycerides Cholesterol LDL Cholesterol, Calc VLDL Cholesterol, Calc HDL Cholesterol Cholesterol/HDL Ratio Lipase Hepatitis C Ab Screen 04/21/18 04/21/18 04/21/18 02:51 02:51 02:51 WBC RBC Hgb Hct MCV MCH MCHC RDW Std Deviation RDW Coeff of Shayne Plt Count MPV Immature Gran % (Auto) Neut % (Auto) Lymph % (Auto) [place] % (Auto) Eos % (Auto) Baso % (Auto) Immature Gran # (Auto) Neut # (Auto) Lymph # (Auto) [place] # (Auto) Eos # (Auto) Baso # (Auto) APTT 26.6 PTT Ratio 1.0 Sodium 138 Potassium 3.5 Chloride 107 Carbon Dioxide 25 Anion Gap 6.0 BUN 16 Creatinine 0.85 Est Cr Clr Drug Dosing 87.2 Est GFR ( Amer) 108.2 Est GFR (Non-Af Amer) 93.4 BUN/Creatinine Ratio 18.4 Glucose 101 H Estimat Average Glucose 120 Hemoglobin A1c 5.8 H Calcium 8.4 L Total Bilirubin AST ALT Alkaline Phosphatase POC Troponin I Troponin I Total Protein Albumin Globulin Albumin/Globulin Ratio Triglycerides 125 Cholesterol 123 LDL Cholesterol, Calc 59 VLDL Cholesterol, Calc 25 HDL Cholesterol 39 Cholesterol/HDL Ratio 3 Lipase Hepatitis C Ab Screen 04/21/18 04:01 WBC RBC Hgb Hct MCV MCH MCHC RDW Std Deviation RDW Coeff of Shayne Plt Count MPV Immature Gran % (Auto) Neut % (Auto) Lymph % (Auto) [place] % (Auto) Eos % (Auto) Baso % (Auto) Immature Gran # (Auto) Neut # (Auto) Lymph # (Auto) [place] # (Auto) Eos # (Auto) Baso # (Auto) APTT PTT Ratio Sodium Potassium Chloride Carbon Dioxide Anion Gap BUN Creatinine Est Cr Clr Drug Dosing Est GFR ( Amer) Est GFR (Non-Af Amer) BUN/Creatinine Ratio Glucose Estimat Average Glucose Hemoglobin A1c Calcium Total Bilirubin AST ALT Alkaline Phosphatase POC Troponin I Troponin I 5.990 H* Total Protein Albumin Globulin Albumin/Globulin Ratio Triglycerides Cholesterol LDL Cholesterol, Calc VLDL Cholesterol, Calc HDL Cholesterol Cholesterol/HDL Ratio Lipase Hepatitis C Ab Screen ECG Additional Comments: 21-APR-2018 06:35:17 [facility] Sinus rhythm with occasional Premature ventricular complexes Otherwise normal ECG
[2018-04-21] MEDS ORDERED: LISINOPRIL 20 MG TAB PO STA (13:38)
[2018-04-21] MEDS ORDERED: Nursing to Pharmacy Communication ONE (14:56)
--- NOTE | 2018-04-21 16:33 | Hospitalist Progress Note ---
Date of Service April 21, 2018 Assessment & Plan (1) NSTEMI (non-ST elevated myocardial infarction): Pt had CP after carrying vanity up flight of stairs. Presented to ER with ST depression in inferior leads and troponin: 0.136. He received nitro, ASA 324mg, metoprolol 2.5mg IV. 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 s/p successful coronary intervention for high-grade single-vessel obstruction disease with mid right coronary stenting for large caliber vessel with long distribution. - stable overall - evaluated by Dr. Cortez -cardiology recommends ASA 81mg daily lifelong, ticagrelor 90 BID x 1 year, simvastatin 40mg, Metoprolol 12.5mg po BID - ff up with Dr. Cortez in 2-4 weeks (2) HTN (hypertension): Metoprolol 12.5mg BID added -continue amlodipine and lisinopril monitor as outpatient (3) Dyslipidemia: -continue statin (4) Elevated glucose: a1c 5.8 monitor closely as outpatient (5) COPD (chronic obstructive pulmonary disease): No exacerbation -continue spiriva, albuterol prn (6) Depression: Stable -continue celexa (7) GERD (gastroesophageal reflux disease): -continue ranitadine DVT Prophylaxis -SCDs d/c home ff up with Dr. Naranjo 04/28 ff up with [facility] in 2-4 weeks Subjective ff up for acute GA resting in bed, comfortable states he feels fine overall in good spirits chest pain free denies dizzines, headcahe, dyspnea denies other symptoms states he is ready and would like to be discharged today Physical Exam 2 Vital Signs (Past 24 Hours): Last Vital Signs Temp 36.7 C 04/21/18 11:31 Pulse 64 04/21/18 15:35 Resp 18 04/21/18 15:35 BP 139/91 04/21/18 15:35 Pulse Ox 93 04/21/18 15:35 Physical Exam: General- oriented x 3, not in distress, speaks in sentences with no effort or accessory muscle use Eyes- anicteric Neck- no JVD Lungs- clear breath sounds bilaterally no rales/wheezes Heart- normal rate, regular rhythm; no murmurs Abdomen- normal bowel sounds, nondistended, soft, nontender Extremities- no pretibial edema, no calf tenderness Neuro- alert, oriented x 3; no gross focal neurologic deficits Skin- warm & dry Results & Data Laboratory Results Laboratory Results - last 24 hr 04/20/18 04/20/18 04/21/18 11:45 17:59 00:07 WBC RBC Hgb Hct MCV MCH MCHC RDW Std Deviation RDW Coeff of Shayne Plt Count MPV Immature Gran % (Auto) Neut % (Auto) Lymph % (Auto) [place] % (Auto) Eos % (Auto) Baso % (Auto) Immature Gran # (Auto) Neut # (Auto) Lymph # (Auto) [place] # (Auto) Eos # (Auto) Baso # (Auto) APTT PTT Ratio Sodium Potassium Chloride Carbon Dioxide Anion Gap BUN Creatinine Est Cr Clr Drug Dosing Est GFR ( Amer) Est GFR (Non-Af Amer) BUN/Creatinine Ratio Glucose Estimat Average Glucose Hemoglobin A1c Calcium Troponin I 2.690 H* 6.480 H* Triglycerides Cholesterol LDL Cholesterol, Calc VLDL Cholesterol, Calc HDL Cholesterol Cholesterol/HDL Ratio Hepatitis C Ab Screen Neg 04/21/18 04/21/18 04/21/18 02:51 02:51 02:51 WBC 11.18 H RBC 5.25 Hgb 16.2 Hct 46.4 MCV 88.4 MCH 30.9 MCHC 34.9 RDW Std Deviation 41.8 RDW Coeff of Shayne 12.9 Plt Count 255 MPV 9.6 Immature Gran % (Auto) 0.3 Neut % (Auto) 63.4 Lymph % (Auto) 24.7 [place] % (Auto) 7.1 Eos % (Auto) 4.0 Baso % (Auto) 0.5 Immature Gran # (Auto) 0.03 H Neut # (Auto) 7.09 H Lymph # (Auto) 2.76 [place] # (Auto) 0.79 H Eos # (Auto) 0.45 Baso # (Auto) 0.06 APTT 26.6 PTT Ratio 1.0 Sodium 138 Potassium 3.5 Chloride 107 Carbon Dioxide 25 Anion Gap 6.0 BUN 16 Creatinine 0.85 Est Cr Clr Drug Dosing 87.2 Est GFR ( Amer) 108.2 Est GFR (Non-Af Amer) 93.4 BUN/Creatinine Ratio 18.4 Glucose 101 H Estimat Average Glucose Hemoglobin A1c Calcium 8.4 L Troponin I Triglycerides 125 Cholesterol 123 LDL Cholesterol, Calc 59 VLDL Cholesterol, Calc 25 HDL Cholesterol 39 Cholesterol/HDL Ratio 3 Hepatitis C Ab Screen 04/21/18 04/21/18 02:51 04:01 WBC RBC Hgb Hct MCV MCH MCHC RDW Std Deviation RDW Coeff of Shayne Plt Count MPV Immature Gran % (Auto) Neut % (Auto) Lymph % (Auto) [place] % (Auto) Eos % (Auto) Baso % (Auto) Immature Gran # (Auto) Neut # (Auto) Lymph # (Auto) [place] # (Auto) Eos # (Auto) Baso # (Auto) APTT PTT Ratio Sodium Potassium Chloride Carbon Dioxide Anion Gap BUN Creatinine Est Cr Clr Drug Dosing Est GFR ( Amer) Est GFR (Non-Af Amer) BUN/Creatinine Ratio Glucose Estimat Average Glucose 120 Hemoglobin A1c 5.8 H Calcium Troponin I 5.990 H* Triglycerides Cholesterol LDL Cholesterol, Calc VLDL Cholesterol, Calc HDL Cholesterol Cholesterol/HDL Ratio Hepatitis C Ab Screen
--- NOTE | 2018-04-21 16:37 | Discharge Summary ---
Date of Service April 21, 2018 Admission HPI Per Admitting Provider Pt is 63 y/o M with PMH COPD, BPH, HTN, dyslipidemia, depression, GERD presented to ER with c/o CP started approx 11am today after carrying vanity up stairs. Reports pain left side chest and was constant, relieved a little when arrived in ER and reports CP returned. 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 Denies fever/chills, diaphoresis, N/V/D/C, HUYNH, dizziness, syncope, vision changes, neck pain, palpitations, cough, sore throat, choking, otalgia, rhinorrhea, abdominal pain, paresthesias, extremity weakness, extremity edema, rashes, urinary symptoms. FH- fatal [place] father age 58 In ER reported EKG changes with elevated troponin. He received nitro, ASA 324mg , metoprolol 2.5mg IV. 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 Post op pt reports feeling good and denies any chest pain or SOB. Admission Exam Per Admitting Provider Vital Signs (Past 24 Hours): Last Vital Signs Temp 36.4 C L 04/20/18 14:15 Pulse 68 04/20/18 14:15 Resp 18 04/20/18 14:15 BP 122/80 04/20/18 14:15 Pulse Ox 96 04/20/18 14:15 Physical Exam: General: no distress, WDWN Head: normocephalic, atraumatic Eyes: conjunctiva non-injected, anicteric ENT: normal inspection external ears, nose, mucous membranes moist Neck: supple, trachea midline Lungs: clear, no respiratory distress, no wheezing/rhonchi/rales CV: RRR, no murmur, no pretibial edema Abd: normal BS, soft, non-tender Ext: no cyanosis, no calf tenderness; Right wrist with pressure band intact with slight red blood noted under band, ROM fingers intact, brisk capillary refill Neuro: A&O x 3, no focal deficits noted, normal affect Skin: warm, dry Principal Diagnosis ACUTE MYOCARDIAL INFARCTION Discharge Exam Vital Signs (Past 24 Hours): Last Vital Signs Temp 36.7 C 04/21/18 11:31 Pulse 64 04/21/18 15:35 Resp 18 04/21/18 15:35 BP 139/91 04/21/18 15:35 Pulse Ox 93 04/21/18 15:35 Physical Exam: General- oriented x 3, not in distress, speaks in sentences with no effort or accessory muscle use Eyes- anicteric Neck- no JVD Lungs- clear breath sounds bilaterally no rales/wheezes Heart- normal rate, regular rhythm; no murmurs Abdomen- normal bowel sounds, nondistended, soft, nontender Extremities- no pretibial edema, no calf tenderness Neuro- alert, oriented x 3; no gross focal neurologic deficits Skin- warm & dry Discharge Data Allergies Allergy/AdvReac Type Severity Reaction Status Date / Time hydrochlorothiazide Allergy Intermediate Muscle Verified 04/20/18 12:37 cramping. Consultations 04/20/18 13:17 ED Decision to Admit Stat 04/20/18 14:27 Consult Cardiac Rehabilitation Routine 04/20/18 15:57 Consult Cardiology Routine Procedures Performed Operation Date: 04/20/18 12:30 Actual Procedures p Cath, Left with Cors and Vent - Macie juan Cineradiography w/Routine Exam - Macie juan Aspiration/PCI w/ROZ for Stemi - Macie [place] " high-grade single-vessel disease was found 90% narrowing mid right coronary artery. Patient received drug-eluting stent to the right coronary successfully "Verdana 4d Ordered Studies 04/20/18 12:55 CL Cath Imgs for PACS use only Stat high-grade single-vessel disease was found 90% narrowing mid right coronary artery. Patient received drug-eluting stent to the right coronary successfully Hospital Course (1) NSTEMI (non-ST elevated myocardial infarction): Pt had CP after carrying vanity up flight of stairs. Presented to ER with ST depression in inferior leads and troponin: 0.136. He received nitro, ASA 324mg, metoprolol 2.5mg IV. 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 s/p successful coronary intervention for high-grade single-vessel obstruction disease with mid right coronary stenting for large caliber vessel with long distribution. - stable overall - evaluated by Dr. Cortez -cardiology recommends ASA 81mg daily lifelong, ticagrelor 90 BID x 1 year, simvastatin 40mg, Metoprolol 12.5mg po BID - ff up with Dr. Cortez in 2-4 weeks (2) HTN (hypertension): Metoprolol 12.5mg BID added -continue amlodipine and lisinopril monitor as outpatient (3) Dyslipidemia: -continue statin (4) Elevated glucose: a1c 5.8 monitor closely as outpatient (5) COPD (chronic obstructive pulmonary disease): No exacerbation -continue spiriva, albuterol prn (6) Depression: Stable -continue celexa (7) GERD (gastroesophageal reflux disease): -continue ranitadine DVT Prophylaxis -SCDs d/c home ff up with Dr. Naranjo 04/28 ff up with [facility] in 2-4 weeks Total Time Total Time Spent Total Time Spent (In Minutes): 30 minutes Discharge Plan Discharge Items Patient Disposition: Home - Self-Care Reason For Visit: CP Discharge Diagnosis: ACUTE MYOCARDIAL INFARCTION Discharge Goals: Diagnostic testing and Therapeutic intervention Activity: As commented below Activity Comment: RESUME ACTIVITY GRADUALLY, NO HEAVY EXERTION Lifting: Wait until after follow-up appointment Exercise/Sports: Wait until after follow-up appointment Driving/Machine Use Comment: NO DRIVING UNTIL ALLOWED BY PRIMARY CARE PHYSICIAN Non-emergency contact: Primary Care Provider Call non-emergency contact if: you have any medication questions Follow-up/Referrals: Yonis Cortez MD [Physician] - Michael Naranjo [Primary Care Provider] - 04/28/18 11:05 am Diet: Heart Healthy Addtl Provider Instructions: DO NOT RETURN TO WORK UNTIL SEEN BY PRIMARY CARE PHYSICIAN ON FOLLOW UP NEXT WEEK. FOLLOW UP WITH AWNINGS MECHANIC IN 2-4 WEEKS. PLEASE REVIEW YOUR NEW MEDICATION LIST AND FOLLOW INSTRUCTIONS CAREFULLY. INFORM YOUR PRIMARY CARE PHYSICIAN OR AWNINGS MECHANIC IMMEDIATELY IF WITH CHEST PAIN RELIEVED BY MEDICATION (NITROSTAT). IF CHEST PAIN IS NOT RELIEVED BY NITROSTAT AFTER 1 DOSE, CALL 911 IMMEDIATELY. Who to Call and When: Medical Emergencies: If at any time you feel your situation is an emergency, please call 911 immediately. Call 911 immediately or go to your nearest Emergency Room if you experience any of the following: Warning Signs and Symptoms of a Heart Attack Chest pain that is not relieved by medication Shortness of breath Home Care: Take your medications exactly as directed. Don't skip doses. Remember that recovery after a heart attack takes time. Plan to rest for at lease 4-8 weeks while you recover. Then return to normal activity when your doctor says it's okay. Ask your doctor about joining a heart rehabilitation program. Tell your doctor if you are feeling depressed. Feelings of sadness are common after a heart attack, but it is important that you speak to someone if you are feeling overwhelmed by these feelings. If you are having chest pain, call 911 for an ambulance. Do NOT drive yourself to the hospital. Ask your family members to learn CPR. Learn to take your own blood pressure and pulse. Keep a record of your results. Ask your doctor when you should seek emergency medical attention. He or she will tell you which blood pressure reading is dangerous. Lifestyle Changes: Maintain a healthy weight. Get help to lose any extra pounds. Cut back on salt. Limit canned, dried, packaged, and fast foods. Don't add salt to your food. Season foods with herbs instead of salt when you cook. Break the smoking habit. Enroll in a stop-smoking program to improve your chances of success. Limit fatty foods. Ask your doctor about having your lipid levels checked regularly. Build up your activity according to your doctor's recommendation. Ask your doctor when it's okay to resume sexual activity. Tell your doctor about any erectile dysfunction (ED) medication you are taking. Some ED medications are not safe if you take certain heart medications. Try to manage stress. Follow Up: It is important for you to keep your follow up appointments with your medical provider. Prescriptions: New ticagrelor [Brilinta] 90 mg Tablet 90 mg PO BID 30 Days Qty: 60 RF: 2 atorvastatin 40 mg Tablet 40 mg PO QAM 30 Days Qty: 30 RF: 2 aspirin [Ecotrin Low Strength] 81 mg Tablet,Delayed Release (Dr/Ec) 81 mg PO QAM 30 Days Qty: 30 RF: 2 metoprolol succinate 25 mg Tablet Extended Release 24 Hr 12.5 mg PO BID 30 Days Qty: 30 RF: 2 nitroglycerin [Nitrostat] 0.3 mg tablet, sublingual 0.3 mg Sublingual UD Qty: 14 RF: 0 Continue cyclobenzaprine 10 mg Tablet 10 mg PO HS PRN (Reason: Muscle Spasm) RF: 0 atorvastatin 20 mg tablet 20 mg PO HS RF: 0 lisinopril 20 mg tablet 20 mg PO QAM RF: 0 amlodipine 5 mg tablet 5 mg PO QAM RF: 0 potassium 99 mg Tablet PO QAM RF: 0 ranitidine HCl 150 mg Tablet 150 mg PO BID RF: 0 fluticasone [Flonase Allergy Relief] 50 mcg/actuation Honor,Suspension 2 spray INTRANASAL QAM RF: 0 [id number]-lutein [Centrum Silver Ultra Men's] 300-600-300 mcg Tablet 1 tab PO QAM RF: 0 citalopram [Celexa] 10 mg Tablet 10 mg PO DAILY RF: 0 albuterol sulfate 90 mcg/actuation Hfa Aerosol Inhaler 2 puff INHALATION Q6H PRN (Reason: Shortness Of Breath Or Wheezing) RF: 0 tiotropium bromide [Spiriva with HandiHaler] 18 mcg Capsule, W/Inhalation Device 1 cap INHALATION DAILY RF: 0 Discontinued meloxicam 15 mg tablet 15 mg PO QAM RF: 0 Stand-Alone Forms: [facility] Discharge Orders: Discharge Order (Routine); Ordered 04/21/18 Ordered By: Morales Benson Admission Data Admit Date/Time: 04/20/18 14:45 Attending Provider: Morales Benson Admit Provider: Morales Benson Primary Care Provider: Michael Naranjo Other Providers: Yonis Cortez Service: Telemetry Other Interventions: Discharge Summary Assessment (RN) Last Done: 04/21/18 17:21 DC Date/Time DO NOT enter until pt leaves facility: 04/21/18 17:45
== END 2018-04-21 17:45 | disposition home or self-care (01) | DRG 247 ==
LOC: ED 11:36 → 2S 14:45
DX: J44.9 Chronic obstructive pulmonary disease, unspecified; I10 Essential (primary) hypertension; R73.9 Hyperglycemia, unspecified; K21.9 Gastro-esophageal reflux disease without esophagitis; Z83.3 Family history of diabetes mellitus; Z82.3 Family history of stroke; Z79.899 Other long term (current) drug therapy; E78.5 Hyperlipidemia, unspecified; Z87.891 Personal history of nicotine dependence; Z82.49 Family history of ischemic heart disease and other diseases of the circulatory system; F32.9 Major depressive disorder, single episode, unspecified; I21.4 Non-ST elevation (NSTEMI) myocardial infarction; Z88.8 Allergy status to other drugs, medicaments and biological substances; Z79.1 Long term (current) use of non-steroidal anti-inflammatories (NSAID); I25.110 Atherosclerotic heart disease of native coronary artery with unstable angina pectoris

== ENCOUNTER 2018-12-04 12:51 | Observation (INO) ==
[2018-12-04] MEDS ORDERED: NITROGLYCERIN SL 0.4 MG/TAB TAB SL PRN ×2 (13:07→16:43)
[2018-12-04] MEDS ORDERED: ASPIRIN CHEW 324 MG PO STA (13:07)
[2018-12-04] MEDS ORDERED: SODIUM CHLORIDE 0.9% 1000ML 1,000 ML IV SCH (13:15)
[2018-12-04 13:51] LABS: Basophils # (auto) 0.05 K/uL (0-0.2); Basophils % (auto) 0.6 %; Eosinophils # (auto) 0.28 K/uL (0-0.5); Eosinophils % (auto) 3.5 %; Hematocrit (blood only) 42.7 % (42-52); Hemoglobin 15.1 g/dL (14.0-18.0); Immature Granulocytes # (auto) 0.02 K/uL (0.00-0.02); Immature Granulocytes % (auto) 0.3 %; Lymphocytes # (auto) 2.71 K/uL (1.2-3.4); Mean Corpuscular Hemoglobin 31.7 pg (25-34); Mean Corpuscular Hgb Conc 35.4 g/dL (32-36); Mean Corpuscular Volume 89.7 fL (80-100); Mean Platelet Volume 9.9 fL (7.4-10.4); Monocytes # (auto) 0.66 K/uL (0.11-0.59); Monocytes % (auto) 8.3 %; Neutrophils # (auto) 4.24 K/uL (1.4-6.5); Neutrophils % (auto) 53.3 %; Platelet Count 259 K/uL (130-400); RDW Standard Deviation 42.8 fL (36.4-46.3); Red Blood Count 4.76 M/uL (4.7-6.1); White Blood Count 7.96 K/uL (4.8-10.8)
--- NOTE | 2018-12-04 14:00 | XRay Report ---
XR chest 2V routine CLINICAL HISTORY: Atypical chest pain COMPARISON STUDY: 05/18/2018 FINDINGS: The cardiac and mediastinal contours are normal. There is no evidence of focal pulmonary co nsolidation. There is no evidence of failure. No pleural effusions are visualized.[There is stable mi ld lower lung zone peribronchial thickening. IMPRESSION: No change from the prior study. No acute findings. Stable lower lung zone peribronchial t hickening Electronically signed by: José Miguel Florian M.D. 12/04/2018 1:58 PM
[2018-12-04 14:05] LABS: Partial Thromboplastin Time 27.5 Seconds (21.0-31.0); Prothrombin Time 10.2 Seconds (9.0-12.0)
[2018-12-04 14:08] LABS: BUN Creatinine Ratio 11.6 (10-20); Blood Urea Nitrogen 12 mg/dl (7-18); Calcium 9.3 mg/dl (8.5-10.1); Carbon Dioxide 26 mmol/L (21-32); Chloride 107 mmol/L (98-107); Creatinine Clr Calc Pharmacy 79.4 ml/min; Est GFR (African American) 89.8; Est GFR (Non-African American) 77.5; Glucose 104 mg/dl (70-99); Lipase 99 U/L (73-393); Sodium 141 mmol/L (136-145)
[2018-12-04 14:12] LABS: Troponin I < 0.015 ng/ml (0-0.045)
--- NOTE | 2018-12-04 15:29 | History & Physical Report ---
Date of Service December 04, 2018 Assessment & Plan (1) Chest pain: (2) CAD (coronary artery disease): Pt is 63 y/o M with PMH CAD, NSTEMI in 04/20/18 s/p ROZ to RCA, HTN, dyslipidemia, COPD, depression, GERD presented to ER with complaint of chest pain, left shoulder pain this morning after heavy lifting at work. Took 1 SL nitro at home with relief In ER had some left shoulder discomfort relieved with 1 SL nitro with no further CP or shoulder pain. Also given 324mg Aspirin, 1L NSS. Vitals stable. Negative initial troponin. EKG sinus nita without acute ST changes noted. R/O ACS. Risk factors: CAD, HTN, hyperlipidemia -Monitor Vitals -Repeat EKG in am -Will trend troponin -Echo -Continue statin, aspirin, metoprolol, plavix -Nitro prn CP and repeat EKG for CP -Morphine prn CP -Cardiology consult (3) Hypokalemia: K: 3.0 -Replace and monitor -Will probably need daily supplement as taking HCTZ also (4) HTN (hypertension): Stable -Continue amlodipine, HCTZ, lisinopril, metoprolol (5) Dyslipidemia: -Continue atorvastatin (6) COPD (chronic obstructive pulmonary disease): -Continue Spiriva, albuterol prn (7) Depression: -Continue citalopram (8) GERD (gastroesophageal reflux disease): -Continue ranitidine DVT Prophylaxis -Lovenox SQ Full Code as per discussion with pt Follows with Dr Naranjo for routine care Pt was seen and care coordinated with Dr Arce. See addendum History of Present Illness Chief Complaint: CP Primary Care Provider: Michael Naranjo MD Pt is 63 y/o M with PMH CAD, NSTEMI in 04/20/18 s/p ROZ to RCA, HTN, dyslipidemia, COPD, depression, GERD presented to ER with complaint of chest pain this morning. 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 Patient states later started with left-sided chest pain, left shoulder and left arm pain and felt tired. He reports took one nitroglycerin and 30 minutes later chest pain was gone. Denies any associated dizziness, SOB, palpitations, diaphoresis, nausea or vomiting. Patient came to ER this afternoon and states was having some left shoulder discomfort and was given 1 nitroglycerin SL here with resolution of shoulder discomfort and has been symptom-free since. Denies fever/chills, diaphoresis, N/V/D/C, HUYNH, dizziness, syncope, vision changes, neck pain, orthopnea, palpitations, cough, sore throat, choking, otalgia, rhinorrhea, abdominal pain, paresthesias, weakness, extremity weakness, extremity edema, rashes, urinary symptoms. Allergies Allergy/AdvReac Type Severity Reaction Status Date / Time hydrochlorothiazide Allergy Intermediate Muscle Verified 04/20/18 12:37 cramping. Home Medications Home Medications Medication Instructions Recorded Confirmed Type Centrum Silver Ultra Men's 1 tab PO QAM 04/20/18 12/04/18 History Spiriva with HandiHaler 1 cap INHALATION DAILY 04/20/18 12/04/18 History albuterol sulfate 2 puff INHALATION Q6H PRN 04/20/18 12/04/18 History amlodipine 5 mg PO QAM 04/20/18 12/04/18 History citalopram [Celexa] 10 mg PO DAILY 04/20/18 12/04/18 History cyclobenzaprine 10 mg PO HS PRN 04/20/18 12/04/18 History fluticasone propionate [Flonase 2 spray INTRANASAL QAM 04/20/18 12/04/18 History Allergy Relief] lisinopril 20 mg PO QAM 04/20/18 12/04/18 History potassium 99 mg PO QAM 04/20/18 12/04/18 History ranitidine HCl 150 mg PO BID 04/20/18 12/04/18 History nitroglycerin [Nitrostat] 0.3 mg SUBLINGUAL UD #14 tab 04/21/18 12/04/18 Rx aspirin 81 mg PO DAILY 12/04/18 12/04/18 History atorvastatin 40 mg PO PM 12/04/18 12/04/18 History clopidogrel 75 mg PO DAILY 12/04/18 12/04/18 History hydrochlorothiazide 25 mg PO DAILY 12/04/18 12/04/18 History metoprolol succinate 12.5 mg PO BID 12/04/18 12/04/18 History Past Med/Surg History Medical History NSTEMI (non-ST elevated myocardial infarction) (Resolved) 04/20/18 s/p ROZ to RCA at [facility] BPH (benign prostatic hyperplasia) (Chronic) COPD (chronic obstructive pulmonary disease) (Chronic) Depression (Chronic) GERD (gastroesophageal reflux disease) (Chronic) HTN (hypertension) (Chronic) Dyslipidemia (Chronic) Surgical History History of arthroscopy of knee (Resolved) History of shoulder surgery (Resolved) History of inguinal hernia repair (Resolved) Family History Other Coronary heart disease Diabetes Hypertension Stroke Social History Preferred Language: Greek Communication Ability: Effective Beliefs That Will Affect Care: None Current Living Situation: Spouse Feels Safe at Home: Yes Smoking Status: Former smoker Hx Alcohol Use: Yes Alcohol Intake Frequency: Rarely Hx Substance Use: No Review of Systems Review of Systems: All systems reviewed & are unremarkable except as noted in HPI & below Physical Exam Physical Exam: General: no distress, WDWN Head: normocephalic, atraumatic Eyes: PERRL, EOM's intact, conjunctiva non-injected, anicteric ENT: normal inspection external ears, nose, mucous membranes moist Neck: supple, trachea midline Lungs: clear, no respiratory distress, no wheezing/rhonchi/rales CV: RRR, no murmur, no pretibial edema, non-tender to palpation Abd: normal BS, soft, non-tender Ext: no cyanosis, no calf tenderness Neuro: A&O x 3, no focal deficits noted, normal affect Skin: warm, dry Results & Data Vital Signs (Past 12 Hours) Vital Signs Temp Pulse Resp BP Pulse Ox 12/04/18 14:25 50 L 15 132/78 95 12/04/18 14:20 50 L 20 120/71 95 12/04/18 14:15 51 L 12 111/74 95 12/04/18 14:10 51 L 15 124/79 95 12/04/18 14:05 52 L 14 123/81 95 12/04/18 14:01 95 12/04/18 13:45 51 L 9 L 124/66 97 12/04/18 13:40 52 L 12 101/66 96 12/04/18 13:36 93 12/04/18 13:35 56 L 14 110/75 12/04/18 13:30 57 L 13 113/67 91 12/04/18 13:27 60 18 91 12/04/18 13:25 57 L 14 125/87 91 12/04/18 13:24 58 L 16 134/77 93 12/04/18 13:20 60 18 12/04/18 13:15 58 L 17 12/04/18 13:14 58 L 15 12/04/18 13:07 94 12/04/18 12:58 36.3 C L 58 L 18 130/86 93 Laboratory Results Short CBC 12/04/18 Range/Units 13:26 WBC 7.96 (4.8-10.8) K/uL Hgb 15.1 (14.0-18.0) g/dL Hct 42.7 (42-52) % Plt Count 259 (130-400) K/uL BMP 12/04/18 13:26 Sodium 141 Potassium 3.0 L Chloride 107 Carbon Dioxide 26 BUN 12 Creatinine 1.03 Glucose 104 H Calcium 9.3 Cardiac Enzymes 12/04/18 Range/Units 13:26 Troponin I < 0.015 (0-0.045) ng/ml Diagnostic Findings CXR: IMPRESSION: No change from the prior study. No acute findings. Stable lower lung zone peribronchial thickening ECG Rate (beats per minute): 56 Rhythm: sinus bradycardia Code Status & VTE Plan VTE Prophylaxis Plan VTE Prophylaxis will be ordered: Yes Supervising Physician Co-Signing Physician Notes Patient is a 63-year-old male with history of coronary artery disease, COPD, hypertension, dyslipidemia and other problems presents with history of sudden onset of left-sided chest pain while lifting heavy object which radiated to left shoulder, chest pain is dull to sharp, lasted for 30 minutes, associated with dizziness. No known history of nausea vomiting, diaphoresis, shortness of breath. Patient's chest pain improved after taking nitroglycerin. On exam patient is moderately built and nourished, no apparent distress, normocephalic atraumatic, lungs--decreased breath sounds, clear to auscultation, abdomen soft nontender, S1-S2, no murmur, no pedal edema, grossly no focal neurological deficits. Patient is admitted for management of Typical chest pain, rule out ACS. EKG showed no signs of acute ischemia. Initial troponin negative. Patient is currently chest pain-free while in ED. Will continue aspirin, Plavix, statin, beta-naeem (with holding parameters), nitroglycerin as needed. Trend cardiac enzymes, check echo, repeat EKG in a.m. Consulted cardiology for further evaluation. May need to adjust metoprolol dose if patient continues to have significant bradycardia. Will replace potassium for Hypokalemia and check magnesium levels. No signs of COPD exacerbation. I personally reviewed the record. Patient is interviewed and examined at bedside. Patient's care is coordinated with Lucy Ambriz PA-C. Please refer to the documentation above for details of patient's presentation and for discussion of other issues. (1) Chest pain Chest pain type: unspecified Qualified Code(s): R07.9 - Chest pain, unspecified
[2018-12-04] MEDS ORDERED: POTASSIUM CHLORIDE 20 MEQ TABCR PO STA (16:43)
[2018-12-04] MEDS ORDERED: ACETAMINOPHEN 325 MG TAB PO PRN (16:43)
[2018-12-04] MEDS ORDERED: ALBUTEROL HFA 8 GM INHALER INH PRN (16:43)
--- NOTE | 2018-12-04 16:51 | Emergency Department Note ---
Entered by Daron Tomas acting as a scribe for Nolan Lance History of Present Illness General Chief complaint: Cardiac Assessment Stated complaint: CHEST PAIN Time Seen by Provider: 12/04/18 13:04 Source: patient History of Present Illness Provider complaint: Chest pain Onset (ago): hour(s) (This morning) Location: chest Radiation: extremity Pain Consistency: + intermittent Maximum Pain Intensity: 2 Current Pain Intensity: 2 Quality: + sharp Relieved By: + medication Exacerbated By: + none Associated symptoms: + shortness of breath; no fever/chills and no nausea/vomiting The patient is a 63 year old male who presents to the Emergency Room with complaints of intermittent sharp left sided chest pain that started earlier this morning. The patient rates the pain as a 2/10 and notes it radiated down his left arm. The patient is currently not experiencing the sharp sensation, but does have some discomfort and numbness down his left arm. The patient reports that he took a Nitro which helped relieve his pain after 30 minutes. The patient states that nothing seems to make the pain worse. The patient adds that he had a coronary stent placed in April. The patient notes that he does take daily Aspirin, but no other blood thinning medication. Home Medications Home Medications Medication Instructions Recorded Confirmed Type Centrum Silver Ultra Men's 1 tab PO QAM 04/20/18 12/04/18 History Spiriva with HandiHaler 1 cap INHALATION DAILY 04/20/18 12/04/18 History albuterol sulfate 2 puff INHALATION Q6H PRN 04/20/18 12/04/18 History amlodipine 5 mg PO QAM 04/20/18 12/04/18 History citalopram [Celexa] 10 mg PO DAILY 04/20/18 12/04/18 History cyclobenzaprine 10 mg PO HS PRN 04/20/18 12/04/18 History fluticasone propionate [Flonase 2 spray INTRANASAL QAM 04/20/18 12/04/18 History Allergy Relief] lisinopril 20 mg PO QAM 04/20/18 12/04/18 History potassium 99 mg PO QAM 04/20/18 12/04/18 History ranitidine HCl 150 mg PO BID 04/20/18 12/04/18 History nitroglycerin [Nitrostat] 0.3 mg SUBLINGUAL UD #14 tab 04/21/18 12/04/18 Rx aspirin 81 mg PO DAILY 12/04/18 12/04/18 History atorvastatin 40 mg PO PM 12/04/18 12/04/18 History clopidogrel 75 mg PO DAILY 12/04/18 12/04/18 History hydrochlorothiazide 25 mg PO DAILY 12/04/18 12/04/18 History metoprolol succinate 12.5 mg PO BID 12/04/18 12/04/18 History Allergies Allergy/AdvReac Type Severity Reaction Status Date / Time hydrochlorothiazide Allergy Intermediate Muscle Verified 04/20/18 12:37 cramping. Past Med/Surg History Medical History NSTEMI (non-ST elevated myocardial infarction) (Resolved) 04/20/18 s/p ROZ to RCA at [facility] BPH (benign prostatic hyperplasia) (Chronic) COPD (chronic obstructive pulmonary disease) (Chronic) Depression (Chronic) GERD (gastroesophageal reflux disease) (Chronic) HTN (hypertension) (Chronic) Dyslipidemia (Chronic) Surgical History History of arthroscopy of knee (Resolved) History of shoulder surgery (Resolved) History of inguinal hernia repair (Resolved) Family History Other Coronary heart disease Diabetes Hypertension Stroke Social History Preferred Language: Namibian Communication Ability: Effective Beliefs That Will Affect Care: None Current Living Situation: Spouse Feels Safe at Home: Yes Smoking Status: Former smoker Hx Alcohol Use: Yes Alcohol Intake Frequency: Rarely Hx Substance Use: No Review of Systems See HPI for pertinent positives & negatives. and A total of 10 systems reviewed and were otherwise negative Physical Exam Vital Signs Vital Signs - 24 hr 12/04/18 12:58 12/04/18 13:07 12/04/18 13:14 Temperature 36.3 C L Temperature Source Oral Sepsis Recent Fever Within 48 Hours No Sepsis Action Taken by Nursing No Action Required Pulse Rate 58 L 58 L Pulse Rate from SpO2 Sensor Respiratory Rate 18 15 Respiratory Effort / Characteristics Non-Labored Spontaneous Respiratory Depth Normal Blood Pressure 130/86 Blood Pressure Mean 100 Blood Pressure Position Sitting Pulse Oximetry 93 94 Oxygen Delivery Method Room Air Room Air Oxygen Flow Rate 12/04/18 13:15 12/04/18 13:20 12/04/18 13:24 Temperature Temperature Source Sepsis Recent Fever Within 48 Hours Sepsis Action Taken by Nursing Pulse Rate 58 L 60 58 L Pulse Rate from SpO2 Sensor 58 L Respiratory Rate 17 18 16 Respiratory Effort / Characteristics Respiratory Depth Blood Pressure 134/77 Blood Pressure Mean 96 Blood Pressure Position Pulse Oximetry 93 Oxygen Delivery Method Room Air Oxygen Flow Rate 12/04/18 13:25 12/04/18 13:27 12/04/18 13:30 Temperature Temperature Source Sepsis Recent Fever Within 48 Hours Sepsis Action Taken by Nursing Pulse Rate 57 L 60 57 L Pulse Rate from SpO2 Sensor 57 L 61 57 L Respiratory Rate 14 18 13 Respiratory Effort / Characteristics Respiratory Depth Blood Pressure 125/87 113/67 Blood Pressure Mean 99 82 Blood Pressure Position Pulse Oximetry 91 91 91 Oxygen Delivery Method Room Air Room Air Room Air Oxygen Flow Rate 12/04/18 13:35 12/04/18 13:36 12/04/18 13:40 Temperature Temperature Source Sepsis Recent Fever Within 48 Hours Sepsis Action Taken by Nursing Pulse Rate 56 L 52 L Pulse Rate from SpO2 Sensor 56 L 52 L Respiratory Rate 14 12 Respiratory Effort / Characteristics Respiratory Depth Blood Pressure 110/75 101/66 Blood Pressure Mean 86 77 Blood Pressure Position Pulse Oximetry 93 96 Oxygen Delivery Method Nasal Cannula Nasal Cannula Oxygen Flow Rate 2 2 12/04/18 13:45 12/04/18 14:01 12/04/18 14:05 Temperature Temperature Source Sepsis Recent Fever Within 48 Hours Sepsis Action Taken by Nursing Pulse Rate 51 L 52 L Pulse Rate from SpO2 Sensor 51 L 54 L 53 L Respiratory Rate 9 L 14 Respiratory Effort / Characteristics Respiratory Depth Blood Pressure 124/66 123/81 Blood Pressure Mean 85 95 Blood Pressure Position Pulse Oximetry 97 95 95 Oxygen Delivery Method Nasal Cannula Nasal Cannula Nasal Cannula Oxygen Flow Rate 2 2 2 12/04/18 14:10 12/04/18 14:15 12/04/18 14:20 Temperature Temperature Source Sepsis Recent Fever Within 48 Hours Sepsis Action Taken by Nursing Pulse Rate 51 L 51 L 50 L Pulse Rate from SpO2 Sensor 54 L 50 L 50 L Respiratory Rate 15 12 20 Respiratory Effort / Characteristics Respiratory Depth Blood Pressure 124/79 111/74 120/71 Blood Pressure Mean 94 86 87 Blood Pressure Position Pulse Oximetry 95 95 95 Oxygen Delivery Method Nasal Cannula Nasal Cannula Nasal Cannula Oxygen Flow Rate 2 2 2 12/04/18 14:25 12/04/18 14:30 12/04/18 14:35 Temperature Temperature Source Sepsis Recent Fever Within 48 Hours Sepsis Action Taken by Nursing Pulse Rate 50 L 51 L 52 L Pulse Rate from SpO2 Sensor 51 L 51 L 53 L Respiratory Rate 15 11 L 17 Respiratory Effort / Characteristics Respiratory Depth Blood Pressure 132/78 128/62 128/82 Blood Pressure Mean 96 84 97 Blood Pressure Position Pulse Oximetry 95 98 91 Oxygen Delivery Method Nasal Cannula Oxygen Flow Rate 2 12/04/18 14:40 12/04/18 14:45 12/04/18 14:50 Temperature Temperature Source Sepsis Recent Fever Within 48 Hours Sepsis Action Taken by Nursing Pulse Rate 49 L 48 L 48 L Pulse Rate from SpO2 Sensor 50 L 48 L 48 L Respiratory Rate 14 15 14 Respiratory Effort / Characteristics Respiratory Depth Blood Pressure 127/79 127/86 121/79 Blood Pressure Mean 95 99 93 Blood Pressure Position Pulse Oximetry 93 93 93 Oxygen Delivery Method Oxygen Flow Rate 12/04/18 14:55 12/04/18 15:00 12/04/18 15:05 Temperature Temperature Source Sepsis Recent Fever Within 48 Hours Sepsis Action Taken by Nursing Pulse Rate 51 L 51 L 57 L Pulse Rate from SpO2 Sensor 52 L 52 L 56 L Respiratory Rate 23 14 19 Respiratory Effort / Characteristics Respiratory Depth Blood Pressure 125/85 133/79 134/85 Blood Pressure Mean 98 97 101 Blood Pressure Position Pulse Oximetry 97 95 95 Oxygen Delivery Method Oxygen Flow Rate 12/04/18 15:10 12/04/18 15:15 12/04/18 15:20 Temperature Temperature Source Sepsis Recent Fever Within 48 Hours Sepsis Action Taken by Nursing Pulse Rate 50 L 51 L 53 L Pulse Rate from SpO2 Sensor 50 L 51 L 53 L Respiratory Rate 14 15 16 Respiratory Effort / Characteristics Respiratory Depth Blood Pressure 124/83 125/82 126/81 Blood Pressure Mean 96 96 96 Blood Pressure Position Pulse Oximetry 93 92 96 Oxygen Delivery Method Oxygen Flow Rate GENERAL: He is oriented to person, place, and time. He appears well-developed and well-nourished. He does not appear distressed. HENT: Exam performed. - Head: Normocephalic and atraumatic. - Right Ear: External ear normal. No mastoid tenderness. - Left Ear: External ear normal. No mastoid tenderness. - Mouth/Throat: The oropharynx is clear and moist. No trismus in the jaw. No dental abscesses or uvula swelling. No oropharyngeal exudate or tonsillar abscesses. EYES: Conjunctivae and EOM are normal. Pupils are equal, round, and reactive to light. Right eye exhibits no discharge. Left eye exhibits no discharge. No scleral icterus. NECK: Normal range of motion. Neck supple. No JVD present. No spinous process tenderness present. No carotid bruit present. No rigidity. No tracheal deviation and normal range of motion present. No Brudzinski's sign and no Kernig's sign noted. CV: Normal rate, regular rhythm, normal heart sounds and intact distal pulses. There is no peripheral edema. Palpable radial pulses bue. PULM/CHEST: Effort normal and breath sounds normal. No respiratory distress. No stridor. He has no wheezes. He has no rales. - Chest Wall: He exhibits no tenderness. ABD: The abdomen is soft. Bowel sounds are normal. He has no distension. No mass is present. There is no tenderness. There is no rebound, no guarding, no Vilchis's sign and no tenderness at McBurney's point. Rovsig negative. MUSC/SKEL: Normal range of motion. There is no peripheral edema, tenderness or deformity. LYMPH: No cervical adenopathy. NEURO: He is alert and oriented to person, place, and time. He has normal strength. No cranial nerve deficit or sensory deficit. Coordination and gait normal. GCS eye subscore is 4. GCS verbal subscore is 5. GCS motor subscore is 6. Cerebellar tests wnl. SKIN: Skin is warm and dry. He is not diaphoretic. PSYCH: He has a normal mood and affect. Behavior is normal. Judgment and thought content normal. Course 1305: Past medical records reviewed. The patient was evaluated in room A11B, and a complete history and physical examination were performed. 1429: Vital signs are stable. Labs and imaging are within normal limits. After receiving sublingual nitro in the emergency department patient reports his chest pain has resolved. The patient has a moderate heart score [facility] I spoke to Lucy García barrett MART under Dr. Claude García [facility] about the patient's case. They are going to accept the patient for further evaluation. Consultations Consultation #1: I spoke to Lucy Lua PAC [facility] the patient's case. They are going to accept the patient for further evaluation. Time: 14:29 Administered Medications Discontinued Medications Aspirin (Aspirin) 324 mg PO NOW STA Stop: 12/04/18 13:08 Last Admin: 12/04/18 13:19 Dose: 324 mg Documented by: [id number] Sodium Chloride (Nss 1000ml) 1,000 mls @ 999 mls/hr IV .Q1H1M VERONIKA Stop: 12/04/18 14:15 Last Infusion: 12/04/18 14:26 Dose: 0 mls/hr Documented by: [id number] Admin: 12/04/18 13:25 Dose: 999 mls/hr Documented by: [id number] Nitroglycerin (Nitrostat) 0.4 mg SL UD PRN PRN Reason: Chest Pain Stop: 01/03/19 13:06 Last Admin: 12/04/18 13:25 Dose: 0.4 mg Documented by: [id number] Medical Decision Making Medical Records Attestation: I reviewed the patient's medical records. Home Medications Current Medication List: was personally reviewed by me Laboratory Data Attestation: I reviewed the patient's lab results. Result diagrams: 12/04/18 13:26 12/04/18 13:26 Lab Results 12/04/18 12/04/18 12/04/18 Range/Units 13:26 13:26 13:26 WBC 7.96 (4.8-10.8) K/uL RBC 4.76 (4.7-6.1) M/uL Hgb 15.1 (14.0-18.0) g/dL Hct 42.7 (42-52) % MCV 89.7 (80-100) fL MCH 31.7 (25-34) pg MCHC 35.4 (32-36) g/dL RDW Std Deviation 42.8 (36.4-46.3) fL RDW Coeff of Shayne 13.0 (11.5-14.5) % Plt Count 259 (130-400) K/uL MPV 9.9 (7.4-10.4) fL Immature Gran % (Auto) 0.3 % Neut % (Auto) 53.3 % Lymph % (Auto) 34.0 % [place] % (Auto) 8.3 % Eos % (Auto) 3.5 % Baso % (Auto) 0.6 % Immature Gran # (Auto) 0.02 (0.00-0.02) K/uL Neut # (Auto) 4.24 (1.4-6.5) K/uL Lymph # (Auto) 2.71 (1.2-3.4) K/uL [place] # (Auto) 0.66 H (0.11-0.59) K/uL Eos # (Auto) 0.28 (0-0.5) K/uL Baso # (Auto) 0.05 (0-0.2) K/uL PT 10.2 (9.0-12.0) Seconds INR 1.0 (0.9-1.1) APTT 27.5 (21.0-31.0) Seconds PTT Ratio 1.0 Sodium 141 (136-145) mmol/L Potassium 3.0 L (3.5-5.1) mmol/L Chloride 107 (98-107) mmol/L Carbon Dioxide 26 (21-32) mmol/L Anion Gap 8.0 (3-11) BUN 12 (7-18) mg/dl Creatinine 1.03 (0.6-1.4) mg/dl Est Cr Clr Drug Dosing 79.4 ml/min Est GFR ( Amer) 89.8 Est GFR (Non-Af Amer) 77.5 BUN/Creatinine Ratio 11.6 (10-20) Glucose 104 H (70-99) mg/dl Calcium 9.3 (8.5-10.1) mg/dl Troponin I < 0.015 (0-0.045) ng/ml Lipase 99 (73-393) U/L Imaging Data Radiologist's Impression: Radiology results as stated below per my review and the radiologist's interpretation: XR chest 2V routine CLINICAL HISTORY: Atypical chest pain COMPARISON STUDY: 05/18/2018 FINDINGS: The cardiac and mediastinal contours are normal. There is no evidence of focal pulmonary consolidation. There is no evidence of failure. No pleural effusions are visualized.[There is stable mild lower lung zone peribronchial thickening. IMPRESSION: No change from the prior study. No acute findings. Stable lower lung zone peribronchial thickening Electronically signed by: José Miguel Florian M.D. 12/04/2018 1:58 PM ECG Data Attestation: I personally reviewed and interpreted this ECG as follows: Indication: chest pain Rate (beats per minute): 56 Rhythm: normal sinus Findings: + other (UT, QRS and QTC intervals are WNL); no ST depression and no ST elevation Blood Pressure Blood Pressure Findings: Elevated blood pressure Blood Pressure Disposition: further management by hospitalist MDM Narrative Vital signs are stable. Labs and imaging are within normal limits. After rece iving sublingual nitro in the emergency department patient reports his chest pain has resolved. The patient has a moderate heart score [facility] I spoke to Lucy Lua PAC under Dr. Claude Lima about the patient's case. They are going to accept the patient for further evaluation. Impression & Plan Chest pain Discharge Plan Visit Data *Final* Discharge Date/Time: 12/04/18 16:14 Chief Complaint: Cardiac Assessment Stated Complaint: CHEST PAIN ED Provider: Nolan Lance Discharge Problem: Chest pain Patient Disposition: Admitted As Inpatient Discharge Instructions Interventions: ED Discharge Assessment Last Done: 12/04/18 16:14 Discharge Problem: Chest pain Qualifiers: Chest pain type: unspecified Qualified Code(s): R07.9 - Chest pain, unspecified The scribe's documentation has been prepared under my direction and personally reviewed by me in its entirety. I confirm that the note above accurately reflects all work, treatment, procedures, and medical decision making performed by me.
[2018-12-04] MEDS ORDERED: POTASSIUM CHLORIDE 40 MEQ in SODIUM CHLORIDE 0.9% 1000ML 500 ML IV SCH (17:30)
[2018-12-04] MEDS ORDERED: ATORVASTATIN 40 MG TAB PO SCH (21:00)
[2018-12-04] MEDS ORDERED: ENOXAPARIN INJ 40 MG/0.4 ML SYR SQ SCH (21:00)
[2018-12-04] MEDS: METOPROLOL SUCC 25MG EXT REL TAB PO SCH (21:08)
--- NOTE | 2018-12-05 07:13 | Discharge Summary ---
Date of Service December 05, 2018 Admission HPI Per Admitting Provider Pt is 63 y/o M with PMH CAD, NSTEMI in 04/20/18 s/p ROZ to RCA, HTN, dyslipidemia, COPD, depression, GERD presented to ER with complaint of chest pain this morning. 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 Patient states later started with left-sided chest pain, left shoulder and left arm pain and felt tired. He reports took one nitroglycerin and 30 minutes later chest pain was gone. Denies any associated dizziness, SOB, palpitations, diaphoresis, nausea or vomiting. Patient came to ER this afternoon and states was having some left shoulder discomfort and was given 1 nitroglycerin SL here with resolution of shoulder discomfort and has been symptom-free since. Denies fever/chills, diaphoresis, N/V/D/C, HUYNH, dizziness, syncope, vision changes, neck pain, orthopnea, palpitations, cough, sore throat, choking, otalgia, rhinorrhea, abdominal pain, paresthesias, weakness, extremity weakness, extremity edema, rashes, urinary symptoms. Admission Exam Per Admitting Provider General: no distress, WDWN Head: normocephalic, atraumatic Eyes: PERRL, EOM's intact, conjunctiva non-injected, anicteric ENT: normal inspection external ears, nose, mucous membranes moist Neck: supple, trachea midline Lungs: clear, no respiratory distress, no wheezing/rhonchi/rales CV: RRR, no murmur, no pretibial edema, non-tender to palpation Abd: normal BS, soft, non-tender Ext: no cyanosis, no calf tenderness Neuro: A&O x 3, no focal deficits noted, normal affect Skin: warm, dry Principal Diagnosis (1) Chest pain: (2) CAD (coronary artery disease): (3) Hypokalemia: (4) HTN (hypertension): (5) Dyslipidemia: (6) COPD (chronic obstructive pulmonary disease): (7) Depression: (8) GERD (gastroesophageal reflux disease): Discharge Exam ROS-No Headache, No Visual Changes, No Nausea, No Vomiting, No Fever, No Chills, No Neck Pain or Stiffness, No Chest Pain, No Palpitations, No SOB, No AGRAWAL, No Cough, No Sputum, No Wheezing, No Abdominal Pain, No Diarrhea, No Hematemesis, No Hemoptysis, No Unexpected Weight Loss, No Flank pain, No Melena, No Hematochezia, No Frequency, No Urgency, No Burning, No Hematuria, No Rashes, No Diaphoresis. Appetite is Normal Physical Exam Gen-AAO x 3, NAD, Afebrile Head-NCAT, EOMI, PERRLA, Anicteric Sclera, No Posterior Pharyngeal Erythema Neck-Supple, No JVD, No Thyromegaly, No Masses, No LAD, No Bruits Lungs-Clear to Auscultation Bilaterally, No Rales, No Rhonchi, No Wheezing, No Crepitus Chest-No S4, +S1, +S2, No S3, No Murmurs, No Rubs, No Gallops, No Ectopy Abdomen-Soft, Bowel Sounds Present, Non Tender, Non Distended, No Hepatomegaly, No Splenomegaly, No Palpable Masses, No Rebound, No Rigidity, No Guarding Musculoskeletal-Full Range of Motion Bilaterally, No CVAT Extremities-No Cyanosis, No Clubbing, No Edema Nuero-Cranial Nerves II-XII grossly intact, Motor WNL, DTRs WNL, Strength WNL, Non Focal Psych-Normal Mood Discharge Data Allergies Allergy/AdvReac Type Severity Reaction Status Date / Time perflutren [From Definity] Allergy Severe Joint Pain Verified 12/05/18 08:11 hydrochlorothiazide Allergy Intermediate Muscle Verified 04/20/18 12:37 cramping. Consultations 12/04/18 14:30 ED Decision to Admit Stat 12/04/18 16:43 Consult Cardiology Routine Current Diagnoses Hyperlipidemia, unspecified (12/04/18) Hypokalemia (12/04/18) Major depressive disorder, single episode, unspecified (12/04/18) Essential (primary) hypertension (12/04/18) Atherosclerotic heart disease of jamul coronary artery without angina pectoris (12/04/18) Chronic obstructive pulmonary disease, unspecified (12/04/18) Gastro-esophageal reflux disease without esophagitis (12/04/18) Chest pain, unspecified (12/04/18) Allergies hydrochlorothiazide Allergy (Intermediate, Verified 04/20/18 12:37) Muscle cramping. Height/Weight/Isolation Height 5 ft 8 in Weight 83.6 kg Chemistry 12/04/18 13:26 Sodium 141 Potassium 3.0 L Chloride 107 Carbon Dioxide 26 Anion Gap 8.0 BUN 12 Creatinine 1.03 Glucose 104 H Hospital Course (1) Chest pain: (2) CAD (coronary artery disease): Pt is 63 y/o M with PMH CAD, NSTEMI in 04/20/18 s/p ROZ to RCA, HTN, dyslipidemia, COPD, depression, GERD presented to ER with complaint of chest pain, left shoulder pain this morning after heavy lifting at work. Took 1 SL nitro at home with relief In ER had some left shoulder discomfort relieved with 1 SL nitro with no further CP or shoulder pain. Also given 324mg Aspirin, 1L NSS. Vitals stable. Negative initial troponin. EKG sinus nita without acute ST changes noted. R/O ACS. Risk factors: CAD, HTN, hyperlipidemia -Echo -Continue statin, aspirin, metoprolol, plavix -Cardiology consult, DC today, neg stress test, f/u c Dr Cortez 2-3 weeks (3) Hypokalemia: K: 3.0 Stop HCTZ (4) HTN (hypertension): Stable -Continue amlodipine, lisinopril, metoprolol (5) Dyslipidemia: -Continue atorvastatin (6) COPD (chronic obstructive pulmonary disease): -Continue Spiriva, albuterol prn (7) Depression: -Continue citalopram (8) GERD (gastroesophageal reflux disease): -Continue ranitidine Follows with Dr Naranjo for routine care DC today and f/u c Dr Naranjo on 12/10 at 1045, and Cards if w/u negative today Total Time Total Time Spent Total Time Spent (In Minutes): 45 mins Discharge Plan Discharge Items Patient Disposition: Home - Self-Care Reason For Visit: CHEST PAIN Discharge Diagnosis: (1) Chest pain: (2) CAD (coronary artery disease): (3) Hypokalemia: (4) HTN (hypertension): (5) Dyslipidemia: (6) COPD (chronic obstructive pulmonary disease): (7) Depression: (8) GERD (gastroesophageal reflux disease): Condition on Discharge: Good Activity: Resume your previous activity Lifting: Gradually increase as tolerated Bathing: No limitations Sexual Activity: When tolerated Exercise/Sports: Gradually increase as tolerated Driving/Machine Use: No limitations Weightbearing: Full weightbearing Non-emergency contact: Primary Care Provider and Section Leader Call non-emergency contact if: you have any medication questions Follow-up/Referrals: Yonis Cortez MD [Physician] - (2-3 weeks) Michael Naranjo MD [Primary Care Provider] - Diet: Heart Healthy Addtl Attending Provider Instructions: Routine follow up Pending Studies at Discharge: Yes Studies:: Echo, Cardio work up Stand-Alone Forms: My [facility] Medications and DC Order Prescriptions: Continued cyclobenzaprine 10 mg Tablet 10 mg PO HS PRN (Reason: Muscle Spasm) RF: 0 lisinopril 20 mg tablet 20 mg PO QAM RF: 0 amlodipine 5 mg tablet 5 mg PO QAM RF: 0 potassium 99 mg Tablet 99 mg PO QAM RF: 0 ranitidine HCl 150 mg Tablet 150 mg PO BID RF: 0 fluticasone propionate [Flonase Allergy Relief] 50 mcg/actuation [place],Suspension 2 spray INTRANASAL QAM RF: 0 Centrum Silver Ultra Men's 300-600-300 mcg Tablet 1 tab PO QAM RF: 0 citalopram [Celexa] 10 mg Tablet 10 mg PO DAILY RF: 0 albuterol sulfate 90 mcg/actuation Hfa Aerosol Inhaler 2 puff INHALATION Q6H PRN (Reason: Shortness Of Breath Or Wheezing) RF: 0 Spiriva with HandiHaler 18 mcg Capsule, W/Inhalation Device 1 cap INHALATION DAILY RF: 0 nitroglycerin [Nitrostat] 0.3 mg tablet, sublingual 0.3 mg Sublingual UD Qty: 14 RF: 0 atorvastatin 40 mg tablet 40 mg PO PM RF: 0 clopidogrel 75 mg tablet 75 mg PO DAILY RF: 0 metoprolol succinate 25 mg tablet extended release 24 hr 12.5 mg PO BID RF: 0 aspirin 81 mg Tablet,Delayed Release (Dr/Ec) 81 mg PO DAILY RF: 0 Discontinued hydrochlorothiazide 25 mg Tablet 25 mg PO DAILY RF: 0 Discharge Orders: Discharge Order (Routine); Ordered 12/05/18 Ordered By: Alfonso Momin Admission Data Admit Date/Time: 12/04/18 15:23 Attending Provider: Alfonso Momin Admit Provider: Roby Arce Primary Care Provider: Michael Naranjo Other Providers: Roby Arce ; Spencer Cardoza
[2018-12-05] MEDS ORDERED: PERFLUTREN LIPID MICROSPHERE (DEFINITY) IV ONE (07:36)
[2018-12-05 07:45] LABS: Hematocrit (blood only) 44.4 % (42-52); Hemoglobin 15.4 g/dL (14.0-18.0); Mean Corpuscular Hemoglobin 31.2 pg (25-34); Mean Corpuscular Hgb Conc 34.7 g/dL (32-36); Mean Corpuscular Volume 90.1 fL (80-100); Mean Platelet Volume 10.1 fL (7.4-10.4); Platelet Count 237 K/uL (130-400); RDW Standard Deviation 42.4 fL (36.4-46.3); Red Blood Count 4.93 M/uL (4.7-6.1); White Blood Count 7.12 K/uL (4.8-10.8)
[2018-12-05 08:22] LABS: BUN Creatinine Ratio 12.3 (10-20); Calcium 8.6 mg/dl (8.5-10.1); Creatinine Clr Calc Pharmacy 86.8 ml/min; Est GFR (African American) 101.6; Est GFR (Non-African American) 87.7; Potassium 3.8 mmol/L (3.5-5.1)
[2018-12-05] MEDS ORDERED: CEROVITE ADV FORMULA TAB PO SCH (09:00)
[2018-12-05] MEDS ORDERED: hydroCHLOROthiazide 25 MG TAB PO SCH (09:00)
[2018-12-05] MEDS ORDERED: LISINOPRIL 20 MG TAB PO SCH (09:00)
[2018-12-05] MEDS ORDERED: FLUTICASONE PROPIONATE NA SPR 16 GM BTL NAE SCH (09:00)
[2018-12-05] MEDS ORDERED: ASPIRIN 81 MG ECTAB PO SCH (09:00)
[2018-12-05] MEDS ORDERED: CLOPIDOGREL BISULFATE 75 MG TAB PO SCH (09:00)
[2018-12-05] MEDS ORDERED: CITALOPRAM 20 MG TAB PO SCH (09:00)
[2018-12-05] MEDS ORDERED: TIOTROPIUM BROMIDE 5 PUFF/90 MCG INH INH SCH (09:00)
[2018-12-05] MEDS ORDERED: AMLODIPINE BESYLATE 5 MG TAB PO SCH (09:00)
[2018-12-05] MEDS: METOPROLOL SUCC 25MG EXT REL TAB PO SCH (09:26)
--- NOTE | 2018-12-05 10:53 | Cardiology Consultation ---
Date of Consultation December 05, 2018 Assessment & Plan (1) Chest pain: Patient's EKG negative x2. Troponin within normal limits x3. Resting echocardiogram revealed normal LVEF normal wall motion with mild aortic valve sclerosis without stenosis. Patient went on to have an exercise stress echocardiogram supervised by the undersigned. Heart rate response to exercise was mildly attenuated due to his underlying metoprolol therapy, but was adequate with the patient having achieved a high level of exertion for himself, and the maximum achieved heart rate was in the range of 79 to 80% of the age-predicted maximal is felt to be sufficient given his beta-naeem therapy. His presenting symptoms were not reproduced. The EKG and echocardiographic responses were negative for ischemia. Patient stable for discharge from a cardiac perspective. I have reached out to our office to help arrange a follow-up appointment 2 [address] Cortez or other provider. Patient does describe superficial bruising, this is likely due to his aspirin plus clopidogrel. Is recommended that he remains on the dual antiplatelet therapy for 1 year and aspirin definitely. (2) Hypokalemia: Potassium was 3 on admission and has improved to 3.8. No further intervention necessary. (3) HTN (hypertension): Continue prior to hospital medication therapy with hydrochlorothiazide, metoprolol, amlodipine, and lisinopril. (4) Dyslipidemia: Continue atorvastatin 40 mg daily. History of Present Illness Attending Physician: Alfonso Momin DO History of Present Illness Chucky Suero is a 63-year-old male seen in cardiology consultation per the request of Lucy Ambriz PA-C of the [facility] for the evaluation of chest pain. 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 He does a lot of physical exertion at his job that includes lifting. Patient states that he was picking up a tailgate to a truck and lifting a car mortensen and later had onset of left-sided chest discomfort, left shoulder and arm discomfort. The symptoms were somewhat reminiscent of the symptoms that prompted the diagnosis of his myocardial infarction in April of this year, and therefore he took a nitroglycerin. His symptoms were relieved. He came to the emergency department due to residual discomfort and received a second dose of nitroglycerin with resolution of his symptoms. He recalls overnight, feeling improved, with his last amount of discomfort at about 8 PM last night. He rested well. His blood pressure overall has been relatively well controlled during his hospital observation with exception of several readings. The patient's history of heart disease dates back to 04/20/2018 resented with chest discomfort and findings of dynamic EKG changes including transient inferior ST segment elevation. He underwent emergent cardiac catheterization with findings of the culprit 90% stenosis of the mid right coronary artery for which the patient underwent PCI implantation of a 3 x 15 mm drug-eluting stent. No significant obstructive atherosclerosis was noted elsewhere. His ejection fraction was preserved. Allergies Allergy/AdvReac Type Severity Reaction Status Date / Time perflutren [From [employer]] Allergy Severe Joint Pain Verified 12/05/18 08:11 hydrochlorothiazide Allergy Intermediate Muscle Verified 04/20/18 12:37 cramping. Home Medications Home Medications Medication Instructions Recorded Confirmed Type Centrum Silver Ultra Men's 1 tab PO QAM 04/20/18 12/04/18 History Spiriva with HandiHaler 1 cap INHALATION DAILY 04/20/18 12/04/18 History albuterol sulfate 2 puff INHALATION Q6H PRN 04/20/18 12/04/18 History amlodipine 5 mg PO QAM 04/20/18 12/04/18 History citalopram [Celexa] 10 mg PO DAILY 04/20/18 12/04/18 History cyclobenzaprine 10 mg PO HS PRN 04/20/18 12/04/18 History fluticasone propionate [Flonase 2 spray INTRANASAL QAM 04/20/18 12/04/18 History Allergy Relief] lisinopril 20 mg PO QAM 04/20/18 12/04/18 History potassium 99 mg PO QAM 04/20/18 12/04/18 History ranitidine HCl 150 mg PO BID 04/20/18 12/04/18 History nitroglycerin [Nitrostat] 0.3 mg SUBLINGUAL UD #14 tab 04/21/18 12/04/18 Rx aspirin 81 mg PO DAILY 12/04/18 12/04/18 History atorvastatin 40 mg PO PM 12/04/18 12/04/18 History clopidogrel 75 mg PO DAILY 12/04/18 12/04/18 History hydrochlorothiazide 25 mg PO DAILY 12/04/18 12/04/18 History metoprolol succinate 12.5 mg PO BID 12/04/18 12/04/18 History Patient History Medical History NSTEMI (non-ST elevated myocardial infarction) (Resolved) 04/20/18 s/p ROZ to RCA at [facility] BPH (benign prostatic hyperplasia) (Chronic) COPD (chronic obstructive pulmonary disease) (Chronic) Depression (Chronic) GERD (gastroesophageal reflux disease) (Chronic) HTN (hypertension) (Chronic) Dyslipidemia (Chronic) Surgical History History of arthroscopy of knee (Resolved) History of shoulder surgery (Resolved) History of inguinal hernia repair (Resolved) Family History Other Coronary heart disease Diabetes Hypertension Stroke Social History Preferred Language: Slovenian Communication Ability: Effective Beliefs That Will Affect Care: None Current Living Situation: Spouse Feels Safe at Home: Yes Smoking Status: Former smoker Tobacco Cessation Education Requested by Patient: No Hx Alcohol Use: Yes Alcohol Intake Frequency: Rarely Hx Substance Use: No Review of Systems Review of Systems: All systems reviewed & are unremarkable except as noted in HPI & below Physical Exam Physical Exam: Temp Pulse Resp BP Pulse Ox 36.4 C L 60 18 161/88 H 95 12/05/18 07:52 12/05/18 07:52 12/05/18 07:52 12/05/18 07:52 12/05/18 07:52 Constitutional: WD/WN, vitals as above Respiratory: normal respiratory effort, lungs clear to auscultation Cardiovascular: RRR, no murmur, no edema Vessels: no JVD Gastrointestinal (Abdomen): normal bowel sounds, soft, nontender, no hepatosplenomegaly Neurologic: PERRL, EOMI, accommodation nl, no face palsy, no dysarthria Results & Data Vital Signs (Past 12 Hours) Vital Signs Temp Pulse Pulse Resp BP BP Pulse Ox 12/05/18 07:52 36.4 C L 60 18 161/88 H 95 12/05/18 04:22 36.7 C 58 L 18 127/78 93 12/04/18 23:51 54 L 09/19/19 23:09 36.6 C 56 L 18 142/91 H 94 Laboratory Results Cardiac Enzymes 12/04/18 12/04/18 12/05/18 Range/Units 13:26 18:55 00:47 Troponin I < 0.015 0.019 0.022 (0-0.045) ng/ml Coagulation 12/04/18 Range/Units 13:26 PT 10.2 (9.0-12.0) Seconds APTT 27.5 (21.0-31.0) Seconds Lipids 12/05/18 Range/Units 06:56 Triglycerides 153 H (0-150) mg/dl Cholesterol 131 (0-200) mg/dl HDL Cholesterol 33 mg/dl Cholesterol/HDL Ratio 4 CBC 12/04/18 12/05/18 Range/Units 13:26 06:56 WBC 7.96 7.12 (4.8-10.8) K/uL RBC 4.76 4.93 (4.7-6.1) M/uL Hgb 15.1 15.4 (14.0-18.0) g/dL Hct 42.7 44.4 (42-52) % Plt Count 259 237 (130-400) K/uL Neut # (Auto) 4.24 (1.4-6.5) K/uL Lymph # (Auto) 2.71 (1.2-3.4) K/uL [place] # (Auto) 0.66 H (0.11-0.59) K/uL Eos # (Auto) 0.28 (0-0.5) K/uL Baso # (Auto) 0.05 (0-0.2) K/uL Comprehensive Metabolic Panel 12/04/18 12/05/18 Range/Units 13:26 06:56 Sodium 141 140 (136-145) mmol/L Potassium 3.0 L 3.8 D (3.5-5.1) mmol/L Chloride 107 109 H (98-107) mmol/L Carbon Dioxide 26 24 (21-32) mmol/L BUN 12 11 (7-18) mg/dl Creatinine 1.03 0.93 (0.6-1.4) mg/dl Glucose 104 H 91 (70-99) mg/dl Calcium 9.3 8.6 (8.5-10.1) mg/dl Intake and Output 12/04/18 12/05/18 12/05/18 22:59 06:59 14:59 Intake Total 225 / 1745 520 / 1745 Balance 225 / 1745 520 / 1745 Intake: IV 520 / 1520 KCl 40 Meq In Nss 1000ML 500 ml 520 / 520 @ 100 mls/hr IV .Q5H12M [facility] Rx #:[id number] Oral 225 / 225 Other: Other Intake Source npo Weight 86.5 kg 83.6 kg Diagnostic Findings EKG performed at 12/04/2018 at 1307 reviewed independently revealed sinus bradycardia 56 bpm, normal EKG. A repeat tracing performed this morning 08/04/2018 with a change to was within normal limits. Medications Administered Current Inpatient Medications Acetaminophen (Tylenol) 650 mg PO Q4H PRN PRN Reason: Pain or Fever Stop: 01/03/19 16:42 Albuterol (Ventolin Hfa) 2 puffs INH Q6H PRN PRN Reason: Shortness Of Breath Or Wheezin Stop: 01/03/19 16:42 Amlodipine Besylate (Norvasc) 5 mg PO QAM [facility] Stop: 01/04/19 08:59 Last Admin: 12/05/18 09:25 Dose: 5 mg Documented by: Aspirin (Ecotrin Ectab) 81 mg PO DAILY [facility] Stop: 01/04/19 08:59 Last Admin: 12/05/18 09:24 Dose: 81 mg Documented by: Atorvastatin Calcium (Lipitor) 40 mg PO PM [facility] Stop: 01/03/19 20:59 Last Admin: 12/04/18 21:09 Dose: 40 mg Documented by: Citalopram Hydrobromide (Celexa) 10 mg PO DAILY [facility] Stop: 01/04/19 08:59 Last Admin: 12/05/18 09:23 Dose: 10 mg Documented by: Clopidogrel Bisulfate (Plavix) 75 mg PO DAILY [facility] Stop: 01/04/19 08:59 Last Admin: 12/05/18 09:25 Dose: 75 mg Documented by: Enoxaparin Sodium (Lovenox) 40 mg SQ Q24H [facility] Stop: 01/03/19 20:59 Last Admin: 12/04/18 21:11 Dose: 40 mg Documented by: Fluticasone Propionate (Flonase) 2 sprays VERÓNICA QAM [facility] Stop: 01/04/19 08:59 Last Admin: 12/05/18 09:22 Dose: 2 sprays Documented by: Hydrochlorothiazide (Hctz) 25 mg PO DAILY [facility] Stop: 01/04/19 08:59 Last Admin: 12/05/18 09:25 Dose: 25 mg Documented by: Lisinopril (Zestril) 20 mg PO QAM [facility] Stop: 01/04/19 08:59 Last Admin: 12/05/18 09:26 Dose: 20 mg Documented by: Metoprolol Succinate (Toprol Xl) 12.5 mg PO BID [facility] Stop: 01/03/19 20:59 Last Admin: 12/05/18 09:26 Dose: 12.5 mg Documented by: Multivitamins/Minerals (Multivitamin W/ Minerals Tab) 1 tab PO [facility] Stop: 01/04/19 08:59 Last Admin: 12/05/18 09:25 Dose: 1 tab Documented by: Nitroglycerin (Nitrostat) 0.4 mg SL UD PRN PRN Reason: Chest Pain Stop: 01/03/19 16:42 Ranitidine HCl (Zantac) 150 mg PO BID [facility] Stop: 01/03/19 20:59 Last Admin: 12/05/18 09:26 Dose: 150 mg Documented by: Tiotropium [place] (Spiriva) 1 puffs INH DAILY [facility] Stop: 01/04/19 08:59 (1) Chest pain Chest pain type: unspecified Qualified Code(s): R07.9 - Chest pain, unspecified
== END 2018-12-05 13:33 | disposition home or self-care (01) ==
LOC: ED 12:51 → 2N 12:51 → SUATTDRO 15:23 → 2N 16:14

== ENCOUNTER 2020-03-25 19:03 | Inpatient (IN) ==
[2020-03-25] MEDS ORDERED: KETOROLAC TROMETHAMINE 15 MG/ML VIAL IV STA (19:45)
[2020-03-25] MEDS ORDERED: ONDANSETRON INJ 2 MG/ML 2 ML VIAL IV STA (19:45)
[2020-03-25] MEDS ORDERED: SODIUM CHLORIDE 0.9% 1000ML 1,000 ML IV ONE (19:45)
[2020-03-25] MEDS ORDERED: ACETAMINOPHEN 500 MG TAB PO STA (19:45)
[2020-03-25] MEDS ORDERED: ALBUTEROL HFA 8 GM INHALER INH ONE (19:45)
--- NOTE | 2020-03-25 19:49 | Emergency Department Note ---
Impression & Plan Hypoxia, Fever, Flu-like symptoms, COVID-19 ED Provider Note NAME: ITZ KAUFFMAN AGE: 65 SEX: M : 1955 ARRIVES VIA: Walk-In INFORMANT: [Patient] ED PROVIDER(S): [Alonso Fabian MD] CHIEF COMPLAINT: Illness HISTORY OF PRESENT ILLNESS: The patient is a 65-year-old male presents the ER with about 3 days of flulike symptoms. He has had some nausea and vomiting, body aches, a slight sore throat, some chills and a low-grade fever. He has been exhausted and tired. He has lost his taste and smell. He has not had diarrhea, he has not had cough and he is not short of breath. He has had no known Covid exposures. He was tested for Covid and his results are to return tomorrow. The patient states that he is concerned because of his symptoms. He wants to make sure he is okay. He does have COPD, he admits he has not been using his inhaler. REVIEW OF SYSTEMS: See HPI for pertinent positives and negatives. A total of ten systems were reviewed and were otherwise negative. PMHx/PSHx: See Below SOCIAL HISTORY: See Below. PHYSICAL EXAM: GENERAL: Patient is in no acute distress. HEENT: No acute trauma, normocephalic atraumatic, mucous membranes moist, no nasal congestion, no scleral icterus. NECK: No stridor, no adenopathy, no meningismus, trachea is midline. LUNGS: No obvious wheezing, no respiratory distress, speaks in full sentences, n o increased respiratory rate. HEART: Regular rate and rhythm, equal radial pulses bilaterally. ABDOMEN: Soft, nontender, bowel sounds positive, no hernias, no peritonitis. EXTREMITIES: No cyanosis or edema, full range of motion of all the joints without pain or difficulty, no signs for acute trauma. NEUROLOGIC: Oriented x 3, no acute motor or sensory deficits, no focal weakness. SKIN: No rash, no jaundice, no diaphoresis. DIFFERENTIAL DIAGNOSIS: Sepsis, UTI, pneumonia, dehydration, metabolic abnormality, influenza, COVID-19, electrolyte abnormalities, cardiac sources, intracerebral event, toxicologic, neurologic, as well as other pathologies. EMERGENCY DEPARTMENT COURSE/PROCEDURES: ECG: Indication was weakness. The ECG shows a normal sinus rhythm with a rate of 73. There is a QTC of 407. No ST elevation, no PVCs. Continuous Cardiac Monitoring: An order was placed for continuous cardiac monitoring. The monitor shows a rate of 61 with normal sinus rhythm. MEDICAL DECISION MAKING: There is no leukocytosis or concerning anemia. There is a normal platelet count. No worrisome coagulopathy. Potassium slightly low, no kidney failure. No worrisome liver enzyme elevation. ECG shows a sinus rhythm, no acute ischemia. Cardiac enzyme testing x1 is not consistent with acute cardiac injury. Influenza testing was negative. Covid test returned positive. Chest film showed some chronic basilar findings, no obvious pneumonia, no CHF. The patient received IV saline for hydration. He was given some oral potassium, he received IV Zofran, IV Toradol and oral Tylenol. He was given albuterol via MDI. He eventually received a dose of IV Decadron, 6 mg. Patient presents with flulike symptoms. He has COVID-19. He initially was saturating well on room air but then dropped to 88%. Later during his ER stay, he did actually dropped to 84%. He required O2 supplementation. Because of the hypoxia, the patient requires a hospital stay. I suspect the Covid diagnosis coupled with his COPD has led to his presentation. I did speak with the patient and case management. The on-call hospitalist was consulted. Past Med/Surg History Medical History BPH (benign prostatic hyperplasia) COPD (chronic obstructive pulmonary disease) Depression Dyslipidemia GERD (gastroesophageal reflux disease) HTN (hypertension) NSTEMI (non-ST elevated myocardial infarction) 04/20/18 s/p ROZ to RCA at [facility] Surgical History History of arthroscopy of knee History of inguinal hernia repair History of shoulder surgery Family History Other Coronary heart disease Diabetes Hypertension Stroke Social History Smoking Status: Former smoker Hx Alcohol Use: Yes Hx Substance Use: No Preferred Language: Korean Communication Ability: Effective Beliefs That Will Affect Care: None Current Living Situation: Spouse Feels Safe at Home: Yes Assistive Devices: Glasses Allergies Allergies Allergy/AdvReac Type Severity Reaction Status Date / Time perflutren [From [facility]] Allergy Severe Joint Pain Verified 03/25/20 22:20 hydrochlorothiazide Allergy Intermediate Muscle Verified 03/25/20 22:20 cramping Home Meds Home Medications Medication Instructions Recorded Confirmed albuterol sulfate 2 puff INHALATION Q4H PRN 04/20/18 03/25/20 amlodipine 5 mg PO QAM 04/20/18 03/25/20 fluticasone propionate [Flonase 2 spray INTRANASAL QAM 04/20/18 03/25/20 Allergy Relief] aspirin 81 mg PO QAM 12/04/18 03/25/20 atorvastatin 40 mg PO QPM 12/04/18 03/25/20 clopidogrel 75 mg PO QAM 12/04/18 03/25/20 citalopram 10 mg PO QAM 03/25/20 03/25/20 famotidine 20 mg PO BID 03/25/20 03/25/20 fluticasone furoate [Arnuity 1 inh INHALATION DAILY 03/25/20 03/25/20 Ellipta] furosemide 20 mg PO 3XWK 03/25/20 03/25/20 lisinopril 20 mg PO BID 03/25/20 03/25/20 metoprolol succinate 12.5 mg PO DAILY 03/25/20 03/25/20 nitroglycerin [Nitrostat] 0.3 mg SUBLINGUAL DIRECTED PRN 03/25/20 03/25/20 pantoprazole 20 mg PO QAM 03/25/20 03/25/20 potassium chloride 10 meq PO 3XWK 03/25/20 03/25/20 umeclidinium-vilanterol [Anoro 1 inh INHALATION DAILY 03/25/20 03/25/20 Ellipta] Results & Data (ED) Vital Signs Vital Signs - 24 hr 03/25/20 19:05 03/25/20 19:56 03/25/20 21:49 Temperature 38.3 C H Temperature Source Temporal Artery Scan Pulse Rate 90 Pulse Rate [Right] 70 61 Pulse Rhythm [Right] Regular Pulse Strength [Right] Normal Respiratory Rate 18 16 18 Respiratory Effort / Characteristics Non-Labored Non-Labored Spontaneous Non-Labored Spontaneous Respiratory Depth Normal Normal Normal Blood Pressure 143/84 H Blood Pressure [Right Arm] 140/84 140/84 Blood Pressure Mean 103 Blood Pressure Mean [Right Arm] 102 102 Pulse Oximetry 91 88 L 94 Oxygen Delivery Method Room Air Room Air Nasal Cannula Oxygen Flow Rate 2 3 Sepsis Recent Fever Within 48 Hours Yes Sepsis New/Unexplained Change in Mental Status No Sepsis Action Taken by Nursing No Action Required 03/25/20 23:00 Temperature Temperature Source Pulse Rate Pulse Rate [Right] 59 L Pulse Rhythm [Right] Pulse Strength [Right] Respiratory Rate 18 Respiratory Effort / Characteristics Respiratory Depth Blood Pressure Blood Pressure [Right Arm] 133/88 Blood Pressure Mean Blood Pressure Mean [Right Arm] 103 Pulse Oximetry 94 Oxygen Delivery Method Nasal Cannula Oxygen Flow Rate 3 Sepsis Recent Fever Within 48 Hours Sepsis New/Unexplained Change in Mental Status Sepsis Action Taken by [facility] Medications Current Medication List: was personally reviewed by me Laboratory Data Attestation: I reviewed the patient's lab results. Result diagrams: 03/25/20 19:54 03/25/20 19:54 Lab Results 03/25/20 03/25/20 03/25/20 Range/Units 19:54 19:54 19:54 WBC 5.29 (4.8-10.8) K/uL RBC 5.16 (4.7-6.1) M/uL Hgb 15.9 (14.0-18.0) g/dL Hct 46.0 (42-52) % MCV 89.1 (80-100) fL MCH 30.8 (25-34) pg MCHC 34.6 (32-36) g/dL RDW Std Deviation 43.1 (36.4-46.3) fL RDW Coeff of Shayne 13.1 (11.5-14.5) % Plt Count 180 (130-400) K/uL MPV 10.1 (7.4-10.4) fL Immature Gran % (Auto) 0.2 % Neut % (Auto) 68.4 % Lymph % (Auto) 21.7 % [place] % (Auto) 9.5 % Eos % (Auto) 0.0 % Baso % (Auto) 0.2 % Neut # (Auto) 3.62 (1.4-6.5) K/uL Lymph # (Auto) 1.15 L (1.2-3.4) K/uL [place] # (Auto) 0.50 (0.11-0.59) K/uL Eos # (Auto) 0.00 (0-0.5) K/uL Baso # (Auto) 0.01 (0-0.2) K/uL Immature Gran # (Auto) 0.01 (0.00-0.02) K/uL PT 11.5 (9.0-12.0) Seconds INR 1.1 (0.9-1.1) APTT 33.9 H (21.0-31.0) Seconds PTT Ratio 1.2 Sodium 134 L (136-145) mmol/L Potassium 3.3 L (3.5-5.1) mmol/L Chloride 102 (98-107) mmol/L Carbon Dioxide 26 (21-32) mmol/L Anion Gap 6.0 (3-11) BUN 16 (7-18) mg/dl Creatinine 1.17 (0.6-1.4) mg/dl Est Cr Clr Drug Dosing Not Reportable Est GFR ( Amer) 75.9 Est GFR (Non-Af Amer) 65.5 BUN/Creatinine Ratio 13.2 (10-20) Glucose 109 H (70-99) mg/dl Calcium 8.2 L (8.5-10.1) mg/dl Magnesium 2.2 (1.8-2.4) mg/dl Total Bilirubin 1.1 H (0.2-1) mg/dl AST 23 (15-37) U/L ALT 27 (12-78) U/L Alkaline Phosphatase 79 (45-117) U/L Troponin I 0.034 (0-0.045) ng/ml Total Protein 8.0 (6.4-8.2) gm/dl Albumin 3.3 L (3.4-5.0) gm/dl Globulin 4.7 H (2.5-4.0) gm/dl Albumin/Globulin Ratio 0.7 L (0.9-2) COVID-19 Eval Order SARS-CoV-2 (PCR) (Negative) Influenza Type A (PCR) (Neg) Influ A Molecular Assay (Negative) Influenza Type B (PCR) (Neg) Influ B Molecular Assay (Negative) RSV (RT-PCR) (Neg) 03/25/20 03/25/20 03/25/20 Range/Units 20:05 Unknown Unknown WBC (4.8-10.8) K/uL RBC (4.7-6.1) M/uL Hgb (14.0-18.0) g/dL Hct (42-52) % MCV (80-100) fL MCH (25-34) pg MCHC (32-36) g/dL RDW Std Deviation (36.4-46.3) fL RDW Coeff of Shayne (11.5-14.5) % Plt Count (130-400) K/uL MPV (7.4-10.4) fL Immature Gran % (Auto) % Neut % (Auto) % Lymph % (Auto) % [place] % (Auto) % Eos % (Auto) % Baso % (Auto) % Neut # (Auto) (1.4-6.5) K/uL Lymph # (Auto) (1.2-3.4) K/uL [place] # (Auto) (0.11-0.59) K/uL Eos # (Auto) (0-0.5) K/uL Baso # (Auto) (0-0.2) K/uL Immature Gran # (Auto) (0.00-0.02) K/uL PT (9.0-12.0) Seconds INR (0.9-1.1) APTT (21.0-31.0) Seconds PTT Ratio Sodium (136-145) mmol/L Potassium (3.5-5.1) mmol/L Chloride (98-107) mmol/L Carbon Dioxide (21-32) mmol/L Anion Gap (3-11) BUN (7-18) mg/dl Creatinine (0.6-1.4) mg/dl Est Cr Clr Drug Dosing Est GFR ( Amer) Est GFR (Non-Af Amer) BUN/Creatinine Ratio (10-20) Glucose (70-99) mg/dl Calcium (8.5-10.1) mg/dl Magnesium (1.8-2.4) mg/dl Total Bilirubin (0.2-1) mg/dl AST (15-37) U/L ALT (12-78) U/L Alkaline Phosphatase (45-117) U/L Troponin I (0-0.045) ng/ml Total Protein (6.4-8.2) gm/dl Albumin (3.4-5.0) gm/dl Globulin (2.5-4.0) gm/dl Albumin/Globulin Ratio (0.9-2) COVID-19 Eval Order CovFluRsv at [facility] SARS-CoV-2 (PCR) POSITIVE A* (Negative) Influenza Type A (PCR) Negative (Neg) Influ A Molecular Assay Negative (Negative) Influenza Type B (PCR) Negative (Neg) Influ B Molecular Assay Negative (Negative) RSV (RT-PCR) Negative (Neg) Administered Medications Discontinued Medications Acetaminophen (Acetaminophen 500 Mg Tab) 1,000 mg PO NOW STA Stop: 03/25/20 19:46 Last Admin: 03/25/20 20:02 Dose: 1,000 mg Documented by: [id number] Albuterol (Albuterol Hfa 8 Gm Inhaler) 3 puffs INH NOW ONE Stop: 03/25/20 19:46 Last Admin: 03/25/20 20:01 Dose: 60 puffs Documented by: [id number] Dexamethasone (Dexamethasone Sod Inj 10 Mg/Ml Vial) 6 mg IV NOW ONE Stop: 03/25/20 21:09 Last Admin: 03/25/20 21:28 Dose: 6 mg Documented by: [id number] Sodium Chloride (Nss 1000ml) 1,000 mls @ 999 mls/hr IV .Q1H1M ONE Stop: 03/25/20 20:45 Last Infusion: 03/25/20 21:14 Dose: 0 mls/hr Documented by: [id number] Admin: 03/25/20 20:01 Dose: 999 mls/hr Documented by: [id number] Ketorolac Tromethamine (Ketorolac Tromethamine 15 Mg/Ml Vial) 15 mg IV NOW STA Stop: 03/25/20 19:46 Last Admin: 03/25/20 20:02 Dose: 15 mg Documented by: [id number] Ondansetron HCl (Ondansetron Inj 2 Mg/Ml 2 Ml Vial) 4 mg IV NOW STA Stop: 03/25/20 19:46 Last Admin: 03/25/20 20:02 Dose: 4 mg Documented by: [id number] Potassium Chloride (Potassium Chloride Crtab 20 Meq Tabcr) 40 meq PO NOW STA Stop: 03/25/20 21:07 Last Admin: 03/25/20 21:28 Dose: 40 meq Documented by: [id number] Imaging Data Radiologist's Impression: XR chest 1V portable CLINICAL HISTORY: Shortness of breath COMPARISON STUDY: 09/04/2019 FINDINGS: The heart is the upper limits of normal in size. There is no failure. There is no focal pulmonary consolidation. There are no pleural effusions. There is minor left basilar atelectasis.[ IMPRESSION: No active disease in the chest. Discharge Plan Visit Data Chief Complaint: Illness Stated Complaint: CHEST, WEAKNESS, VOMITIN ED Provider: Alonso Fabian Discharge Problem: Hypoxia, Fever, Flu-like symptoms, COVID-19 Patient Disposition: Admitted As Inpatient Condition: Good Forms Stand Alone Forms: My [facility] Prescriptions Prescriptions: No Action amlodipine 5 mg tablet 5 mg PO QAM RF: 0 fluticasone propionate [Flonase Allergy Relief] 50 mcg/actuation [place],Suspension 2 spray INTRANASAL QAM RF: 0 albuterol sulfate 90 mcg/actuation Hfa Aerosol Inhaler 2 puff INHALATION Q4H PRN (Reason: Wheezing) RF: 0 potassium chloride 10 mEq capsule, extended release 10 meq PO 3XWK RF: 0 citalopram 10 mg tablet 10 mg PO QAM RF: 0 lisinopril 20 mg tablet 20 mg PO BID RF: 0 pantoprazole 20 mg tablet,delayed release (DR/EC) 20 mg PO QAM RF: 0 famotidine 20 mg tablet 20 mg PO BID RF: 0 furosemide 20 mg tablet 20 mg PO 3XWK RF: 0 nitroglycerin [Nitrostat] 0.3 mg tablet, sublingual 0.3 mg Sublingual DIRECTED PRN (Reason: Chest Pain) RF: 0 metoprolol succinate 25 mg tablet extended release 24 hr 12.5 mg PO DAILY RF: 0 Anoro Ellipta 62.5-25 mcg/actuation blister with device 1 inh INHALATION DAILY RF: 0 Arnuity Ellipta 100 mcg/actuation blister with device 1 inh INHALATION DAILY RF: 0 atorvastatin 40 mg tablet 40 mg PO QPM RF: 0 clopidogrel 75 mg tablet 75 mg PO QAM RF: 0 aspirin 81 mg Tablet,Delayed Release (Dr/Ec) 81 mg PO QAM RF: 0 Referrals Referrals: Michael Naranjo MD [Primary Care Provider] - Discharge Problem: Fever Qualifiers: Fever type: unspecified Qualified Code(s): R50.9 - Fever, unspecified
[2020-03-25 20:20] LABS: Basophils # (auto) 0.01 K/uL (0-0.2); Basophils % (auto) 0.2 %; Hemoglobin 15.9 g/dL (14.0-18.0); Immature Granulocytes # (auto) 0.01 K/uL (0.00-0.02); Immature Granulocytes % (auto) 0.2 %; Lymphocytes # (auto) 1.15 K/uL (1.2-3.4); Lymphocytes % (auto) 21.7 %; Mean Corpuscular Hemoglobin 30.8 pg (25-34); Mean Corpuscular Hgb Conc 34.6 g/dL (32-36); Mean Corpuscular Volume 89.1 fL (80-100); Mean Platelet Volume 10.1 fL (7.4-10.4); Monocytes % (auto) 9.5 %; Neutrophils # (auto) 3.62 K/uL (1.4-6.5); Neutrophils % (auto) 68.4 %; Platelet Count 180 K/uL (130-400); RDW Coefficient of Variation 13.1 % (11.5-14.5); RDW Standard Deviation 43.1 fL (36.4-46.3); Red Blood Count 5.16 M/uL (4.7-6.1); White Blood Count 5.29 K/uL (4.8-10.8)
[2020-03-25 20:29] LABS: INR 1.1 (0.9-1.1); Partial Thromboplastin Ratio 1.2; Partial Thromboplastin Time 33.9 Seconds (21.0-31.0); Prothrombin Time 11.5 Seconds (9.0-12.0)
[2020-03-25 20:37] LABS: Alanine Aminotransferase 27 U/L (12-78); Albumin Level 3.3 gm/dl (3.4-5.0); Aspartate Aminotransferase 23 U/L (15-37); BUN Creatinine Ratio 13.2 (10-20); Blood Urea Nitrogen 16 mg/dl (7-18); Calcium 8.2 mg/dl (8.5-10.1); Carbon Dioxide 26 mmol/L (21-32); Chloride 102 mmol/L (98-107); Est GFR (African American) 75.9; Est GFR (Non-African American) 65.5; Glucose 109 mg/dl (70-99); Magnesium 2.2 mg/dl (1.8-2.4); Potassium 3.3 mmol/L (3.5-5.1); Sodium 134 mmol/L (136-145)
[2020-03-25 20:42] LABS: Albumin Globulin Ratio 0.7 (0.9-2); Alkaline Phosphatase 79 U/L (45-117); Bilirubin,Total 1.1 mg/dl (0.2-1); Globulin 4.7 gm/dl (2.5-4.0); Troponin I 0.034 ng/ml (0-0.045)
--- NOTE | 2020-03-25 20:59 | XRay Report ---
XR chest 1V portable CLINICAL HISTORY: Shortness of breath COMPARISON STUDY: 09/04/2019 FINDINGS: The heart is the upper limits of normal in size. There is no failure. There is no focal pul monary consolidation. There are no pleural effusions. There is minor left basilar atelectasis.[ IMPRESSION: No active disease in the chest. ACT 112: Negative or not required by law. Electronically signed by: José Miguel Florian M.D. 03/25/2020 8:57 PM
[2020-03-25 21:02] LABS: Influenza A virus by PCR Negative (Negative); Influenza B virus by PCR Negative (Negative)
[2020-03-25] MEDS ORDERED: POTASSIUM CHLORIDE CRTAB 20 MEQ TABCR PO STA (21:06)
[2020-03-25] MEDS ORDERED: DEXAMETHASONE SOD INJ 10 MG/ML VIAL IV ONE (21:08)
[2020-03-25 22:46] LABS: Influenza A virus by PCR Negative (Neg); Influenza B virus by PCR Negative (Neg); RSV by PCR Negative (Neg)
[2020-03-25 22:58] LABS: SARS CoV2 RNA(COVID-19) InHosp POSITIVE (Negative)
--- NOTE | 2020-03-25 23:54 | History and Physical Report ---
DATE OF ADMISSION: 03/25/2020 CHIEF COMPLAINT: Shortness of breath and fever. HISTORY OF PRESENT ILLNESS: This is a 65-year-old male with past medical history significant for prediabetes, COPD, centrilobular emphysema, obstructive sleep apnea, nocturnal hypoxemia, lung nodule, hypertension, atherosclerotic heart disease, history of esophageal dysphagia, history of benign prostatic hypertrophy, history of urinary incontinence, left hydrocele, generalized osteoarthritis, lumbar degenerative disc disease, recurrent depression, history of tobacco abuse, who lives with his , daughter, and granddaughter, who presents with ongoing fever and shortness of breath the last 2-3 days and also he lost appetite and lost sense of smell and taste, that is the reason he came to the ER. After he received Decadron and oxygenation, he is feeling better. When he came in and he also had temp spike in the ER. The patient is having ongoing temperature for last 3 days. He was 88% on room air, after 3 liters it came up to high 90s. ER, tried to take out the oxygen and again oxygen sats dropped to 84%, currently saturating at 94% on 3 liters. Resting comfortably and hemodynamically stable, currently feeling better. He had a headache that is better now. No blurred visions. No earache, no runny nose, no sore throat, no difficulty swallowing, no chest pain. He was nauseous earlier. No abdominal pain. He had no bowel movements the last 3 days because he was not not eating much. Normal bladder movements. No swelling in the legs, no rash. ALLERGIES: HYDROCHLOROTHIAZIDE, PERFLUTREN. PAST MEDICAL HISTORY: As mentioned above. PAST SURGICAL HISTORY: Right shoulder arthroscopy, colonoscopy, EGDs, left knee arthroscopy, laparoscopic repair of inguinal hernia, repair of the biceps tendon rupture on the right side, right shoulder debridement, sinus surgery. MEDICATIONS: The patient is on albuterol 2 puffs inhalation q. 4 hours p.r.n., amlodipine 5 mg p.o. a.m., aspirin 81 mg p.o. a.m., atorvastatin 40 mg p.o. p.m., citalopram 10 mg p.o. a.m., Plavix 75 mg p.o. a.m., famotidine 20 mg p.o. b.i.d., Flonase 2 sprays intranasally a.m., Lasix 20 mg p.o. 3 times a week, lisinopril 20 mg p.o. b.i.d., nitroglycerin 0.3 mg sublingual p.r.n., Protonix 20 mg p.o. a.m., potassium chloride 10 mEq p.o. 3 times a week, Anoro Ellipta 1 puff inhalation daily, Arnuity Ellipta 1 puff daily, Toprol-XL 12.5 mg p.o. daily. FAMILY HISTORY: Significant for mother had diabetes and stroke; father had heart disorder. SOCIAL HISTORY: and lives with his , daughter, and granddaughter. Former smoker, quit in 2010, smoked 1 pack a day for 45 years. Alcohol, 1 beer per day. Drug use, marijuana occasionally. REVIEW OF SYSTEMS: As per HPI. Rest of the review of symptoms negative. PHYSICAL EXAMINATION: GENERAL: The patient is of moderate build, not in acute distress. VITAL SIGNS: T-max 38.3, pulse 61, respiratory rate 18, blood pressure 140/84, oxygen 94% on 3 liters, it was 82% on room air. HEENT: Pupils equal, round, and reactive to light. Oral mucosa moist. NECK: Supple, no neck masses seen. CARDIOVASCULAR: S1, S2 heard, regular rate and rhythm, no murmur, no gallop. RESPIRATORY SYSTEM: Normal AP diameter. No accessory muscle use. No wheezing, no crackles. ABDOMEN: Soft, bowel sounds present, nontender. No distention. CENTRAL NERVOUS SYSTEM: Cranial nerves II-XII grossly intact. Nonfocal. EXTREMITIES: No edema, no erythema. LABORATORY DATA: WBC 5.3, hemoglobin 15.9, hematocrit 46, platelets 180. PT 11.5, INR 1.1, APTT 33.9. Sodium 134, potassium 3.3, chloride 102, bicarbonate 26, BUN 16, creatinine 1.17, serum glucose 109, calcium 8.2, magnesium 2.2, total bilirubin 1.1, AST 23, ALT 27, alkaline phosphatase 110. Troponin I of 0.034. SARS-CoV-2 PCR positive. Influenza A and B pending. RSV PCR pending. IMAGING DATA: Chest x-ray, no active disease in the chest. EKG: Normal sinus rhythm at a rate of 73, no significant change was found. ASSESSMENT AND PLAN: This is a 65-year-old male who presents with ongoing fever and shortness of breath. 1. Fever and shortness of breath:COVID 19. Hypoxia. The patient also lost some sense of smell and taste and also poor appetite for last 3 days, most likely COVID. Chest x-ray looks okay. He was hypoxic, requiring oxygen. Currently saturating okay on 3 liters oxygen and is comfortable. COVID test came back positive.Will place him on remdesivir and we will continue with IV Decadron [address] empirically on doxycycline and monitor in the [employer] tele. 2. History of chronic obstructive pulmonary disease: Continue his home inhalers. We will place on nebs p.r.n. Currently he is on oxygen.Will monitor. 3. Hypokalemia: We will replace. 4. History of coronary artery disease: On aspirin, Plavix, statin, and beta naeem. 5. Hypertension: On amlodipine, lisinopril, metoprolol. We will monitor the blood pressure. 6. Gastroesophageal reflux disease: Continue Protonix. 7. Hyperlipidemia: Continue statin. 8. Obstructive sleep apnea: On CPAP at bedtime. 9. Prediabetes: We will follow the blood sugars and follow the HbA1c levels. 10. Deep venous thrombosis prophylaxis: Lovenox. DISPOSITION: Closely monitor in the [employer] tele. Level 1 full code. Expect to discharge home and follow with family doctor. BAILEE
[2020-03-26] MEDS ORDERED: ALBUTEROL HFA 8 GM INHALER INH PRN (00:35)
[2020-03-26] MEDS ORDERED: NITROGLYCERIN SL 0.4 MG/TAB TAB SL PRN (00:35)
[2020-03-26] MEDS ORDERED: LEVALBUTEROL 1.25MG/0.5ML NEB INH PRN (00:35)
[2020-03-26] MEDS ORDERED: XOPENEX/ATROVENT 1.25mg/0.5MG NEB COMBO NEB PRN (00:35)
[2020-03-26] MEDS ORDERED: POLYETHYLENE (MIRALAX) 17 GM PACK PO PRN (00:35)
[2020-03-26] MEDS ORDERED: ACETAMINOPHEN 325 MG TAB PO PRN (00:35)
[2020-03-26] MEDS ORDERED: IPRATROPIUM BROMIDE NEB SOLN 0.02% 2.5 ML VIAL INH PRN (00:35)
[2020-03-26] MEDS ORDERED: NITROGLYCERIN 0.3 MG/1 TAB 100 TAB BTL SL PRN (00:35)
[2020-03-26] MEDS ORDERED: REMDESIVIR 200 MG in SODIUM CHLORIDE 0.9% 210 ML IV ONE (01:00)
[2020-03-26] MEDS: DOXYCYCLINE HYCLATE 100 MG CAP PO SCH ×3 (01:13→19:42)
[2020-03-26] MEDS: SODIUM CHLORIDE 0.9% 10ML FLUSH IV SCH ×3 (03:35→22:13)
[2020-03-26 06:15] LABS: Basophils # (auto) 0.01 K/uL (0-0.2); Basophils % (auto) 0.3 %; Hematocrit (blood only) 47.4 % (42-52); Hemoglobin 16.4 g/dL (14.0-18.0); Immature Granulocytes # (auto) 0.01 K/uL (0.00-0.02); Immature Granulocytes % (auto) 0.3 %; Lymphocytes # (auto) 0.95 K/uL (1.2-3.4); Mean Corpuscular Hemoglobin 31.1 pg (25-34); Mean Corpuscular Hgb Conc 34.6 g/dL (32-36); Mean Corpuscular Volume 89.9 fL (80-100); Mean Platelet Volume 9.9 fL (7.4-10.4); Monocytes # (auto) 0.14 K/uL (0.11-0.59); Monocytes % (auto) 4.4 %; Neutrophils # (auto) 2.06 K/uL (1.4-6.5); Platelet Count 175 K/uL (130-400); RDW Coefficient of Variation 13.2 % (11.5-14.5); RDW Standard Deviation 43.9 fL (36.4-46.3); Red Blood Count 5.27 M/uL (4.7-6.1); White Blood Count 3.17 K/uL (4.8-10.8)
[2020-03-26 06:43] LABS: BUN Creatinine Ratio 16.2 (10-20); Bilirubin Direct 0.2 mg/dl (0-0.2); Calcium 8.3 mg/dl (8.5-10.1); Creatinine Clr Calc Pharmacy 75.6 ml/min; Est GFR (African American) 83.6; Est GFR (Non-African American) 72.2; Magnesium 2.2 mg/dl (1.8-2.4); Potassium 3.7 mmol/L (3.5-5.1)
[2020-03-26 06:46] LABS: Bilirubin,Total 1.1 mg/dl (0.2-1); Total Protein 7.6 gm/dl (6.4-8.2)
[2020-03-26] MEDS: FAMOTIDINE 20 MG TAB PO SCH ×2 (08:43→19:43)
[2020-03-26] MEDS: ENOXAPARIN INJ 40 MG/0.4 ML SYR SQ SCH (08:43)
[2020-03-26 08:44] LABS: C Reactive Protein 4.75 mg/dl (0-0.29); Ferritin 532.2 ng/ml (8-388)
[2020-03-26] MEDS: lisinopril 20 MG TAB PO SCH ×2 (08:44→19:42)
[2020-03-26] MEDS: amLODIPine BESYLATE 5 MG TAB PO SCH (08:44)
[2020-03-26] MEDS: UMECLIDINIUM/VILANTEROL 62.5/25MCG 7 PUFFS/INHALER INH SCH (08:45)
[2020-03-26] MEDS: FLUTICASONE FUROATE 100MCG 14 PUFFS/INHALER INH SCH (08:45)
[2020-03-26] MEDS: CITALOPRAM 20 MG TAB PO SCH (08:46)
[2020-03-26] MEDS: PANTOprazole 40 MG TAB PO SCH (08:46)
[2020-03-26] MEDS: METOPROLOL SUCC 25MG EXT REL TAB PO SCH (08:47)
[2020-03-26] MEDS: ASPIRIN 81 MG ECTAB PO SCH (08:48)
[2020-03-26] MEDS: CLOPIDOGREL BISULFATE 75 MG TAB PO SCH (08:48)
[2020-03-26] MEDS: DEXAMETHASONE SOD PHOSPHATE 6 MG in SYRINGE 0 ML IV SCH (08:48)
[2020-03-26] MEDS: FLUTICASONE PROPIONATE NA SPR 16 GM BTL SCH (08:49)
[2020-03-26] MEDS ORDERED: DEXAMETHASONE SOD INJ 10 MG/ML VIAL IV SCH (09:00)
--- NOTE | 2020-03-26 11:08 | Electrocardiogram Report ---
Test Reason : Blood Pressure : / mmHG Vent. Rate : 073 BPM Atrial Rate : 073 BPM P-R Int : 142 ms QRS Dur : 088 ms QT Int : 370 ms P-R-T Axes : 047 025 020 degrees QTc Int : 407 ms Normal sinus rhythm Normal ECG When compared with ECG of 04-SEP-2019 19:18, No significant change was found Confirmed by Alexys Aparicio ([id number]) on 03/26/2020 11:08:34 AM Referred By: Yonis Cortez Confirmed By:Antonio Aparicio
--- NOTE | 2020-03-26 14:33 | Hospitalist Progress Note ---
Date of Service March 26, 2020 Assessment & Plan (1) COVID-19: Admitted with fever and shortness of breath and noted to be COVID-19 positive No definite pneumonia on x-ray Required 2 L of nasal cannula to maintain saturation Ferritin is minimally high at 532 and CRP minimally high at 4.75. LFTs are normal Has been started with intravenous remdesivir and dexamethasone Has been feeling a lot better since this morning Will not give any convalescent plasma Continue current treatment (2) Hypoxia: Likely secondary to COPD and complicated by Covid infection without pneumonia Requiring 1 L of nasal cannula oxygen to maintain saturation (3) COPD (chronic obstructive pulmonary disease): Does not have any exacerbation at this time Minimal to no wheezing on examination (4) HTN (hypertension): Blood pressure is on the upper side We will monitor (5) NSTEMI (non-ST elevated myocardial infarction): History of CAD with NSTEMI No acute symptoms DVT prophylaxis Lovenox CODE STATUS Full Admission and Anticipated Discharge Date Admission Date: March 25, 2020 Subjective 03/26/2020 The patient was seen and examined in Covid unit with telemetry He has been feeling a lot better since admission Denies any significant shortness of breath at rest Denies any fever and/or chills, nausea and/or vomiting and has been ambulating in the room Review of Systems Review of Systems: All systems reviewed and are unremarkable except as noted below Respiratory: + cough and + dyspnea on exertion; no dyspnea (At rest) Gastrointestinal: no abdominal pain, no bloating, no nausea and no vomiting Physical Exam Physical Exam: Sitting on a chair without any acute distress Constitutional: well developed, well nourished and + obese Eyes: PERRL, conjunctivae normal, anicteric sclerae ENMT: external ear and nose normal, oropharynx normal Neck: trachea midline, no thyromegaly Respiratory: normal respiratory effort; no respiratory distress (At rest) Auscultation: + diminished lung sounds (At the bases) and + wheezes (Minimal wheezing); no crackles Cardiovascular: Rate/Rhythm: regular rate and regular rhythm Heart Sounds: no murmur Extremities: no edema Gastrointestinal (Abdomen): Inspection/Auscultation: normal bowel sounds; abdomen not distended Percussion/Palpation: abdomen soft; abdomen nontender Musculoskeletal: No acute arthritis in the joint Neurologic: Alert, awake and oriented x3. No focal sensory and motor deficit appreciated Psychiatric: A+Ox3, euthymic affect Results & Data Results & Data ([facility]) Vital Signs (Past 12 Hours) Vital Signs Temp Pulse Pulse Resp BP Pulse Ox 03/26/20 11:10 37.3 C 72 19 162/88 H 92 03/26/20 07:20 36.5 C 63 17 121/74 94 03/26/20 03:34 53 L 21 92 Laboratory Results Short CBC 03/25/20 03/26/20 Range/Units 19:54 05:47 WBC 5.29 3.17 L (4.8-10.8) K/uL Hgb 15.9 16.4 (14.0-18.0) g/dL Hct 46.0 47.4 (42-52) % Plt Count 180 175 (130-400) K/uL BMP 03/25/20 03/26/20 19:54 05:47 Sodium 134 L 136 Potassium 3.3 L 3.7 Chloride 102 105 Carbon Dioxide 26 25 BUN 16 18 Creatinine 1.17 1.08 Glucose 109 H 136 H Calcium 8.2 L 8.3 L Cardiac Enzymes 03/25/20 Range/Units 19:54 Troponin I 0.034 (0-0.045) ng/ml Liver Function 03/25/20 03/26/20 Range/Units 19:54 05:47 Total Bilirubin 1.1 H 1.1 H (0.2-1) mg/dl Direct Bilirubin 0.2 (0-0.2) mg/dl AST 23 20 (15-37) U/L ALT 27 26 (12-78) U/L Alkaline Phosphatase 79 74 (45-117) U/L Albumin 3.3 L 3.0 L (3.4-5.0) gm/dl Medications Administered Current Inpatient Medications Acetaminophen (Acetaminophen 325 Mg Tab) 650 mg PO Q4H PRN PRN Reason: Pain or Fever Stop: 04/25/20 00:34 Albuterol (Albuterol Hfa 8 Gm Inhaler) 2 puffs INH Q4H PRN PRN Reason: Wheezing Stop: 04/25/20 00:34 Amlodipine Besylate (Amlodipine Besylate 5 Mg Tab) [facility] Stop: 04/25/20 08:59 Last Admin: 03/26/20 08:44 Dose: 5 mg Documented by: Aspirin (Aspirin 81 Mg Ectab) 81 mg PO QAM [facility] Stop: 04/25/20 08:59 Last Admin: 03/26/20 08:48 Dose: 81 mg Documented by: Atorvastatin Calcium (Atorvastatin 40 Mg Tab) 40 mg PO QPM [facility] Stop: 04/25/20 20:59 Citalopram Hydrobromide (Citalopram 20 Mg Tab) [facility] Stop: 04/25/20 08:59 Last Admin: 03/26/20 08:46 Dose: 10 mg Documented by: Clopidogrel Bisulfate (Clopidogrel Bisulfate 75 Mg Tab) [facility] Stop: 04/25/20 08:59 Last Admin: 03/26/20 08:48 Dose: 75 mg Documented by: Doxycycline Hyclate (Doxycycline Hyclate 100 Mg Cap) 100 mg PO BID [facility] Stop: 04/02/20 00:34 Last Admin: 03/26/20 08:47 Dose: 100 mg Documented by: Enoxaparin Sodium (Enoxaparin Inj 40 Mg/0.4 Ml Syr) 40 mg SQ Q24H [facility] Stop: 04/25/20 08:59 Last Admin: 03/26/20 08:43 Dose: Not Given Documented by: Famotidine (Famotidine 20 Mg Tab) 20 mg PO BID [facility] Stop: 04/25/20 08:59 Last Admin: 03/26/20 08:43 Dose: Not Given Documented by: Fluticasone Furoate (Fluticasone Furoate 100mcg 14 Puffs/Inhaler) 1 puffs INH DAILY [facility] Stop: 04/25/20 08:59 Last Admin: 03/26/20 08:45 Dose: 1 puffs Documented by: Fluticasone Propionate (Fluticasone Propionate Na Spr 16 Gm Btl) 2 sprays NA QAM [facility] Stop: 04/25/20 08:59 Last Admin: 03/26/20 08:49 Dose: 2 sprays Documented by: Furosemide (Furosemide 20 Mg Tab) 20 mg PO MoWeFr@0900 [facility] Stop: 04/27/20 08:59 Remdesivir 100 mg/ Sodium (Chloride) 250 mls @ 250 mls/hr IV Q24H [facility]; Protocol Stop: 03/29/20 20:59 Dexamethasone Sodium Phosphate (6 mg/ Syringe) 1.5 mls @ 1 mls/min IV QA [facility] Stop: 04/04/20 09:02 Last Admin: 03/26/20 08:48 Dose: 1 mls/min Documented by: Ipratropium [place] (Ipratropium [place] Neb Soln 0.02% 2.5 Ml Vial) 0.5 mg INH Q4H PRN PRN Reason: Shortness Of Breath Or Wheezing Stop: 04/25/20 00:34 Levalbuterol HCl (Levalbuterol 1.25mg/0.5ml Neb) 1.25 mg INH Q4H PRN PRN Reason: Shortness Of Breath Or Wheezing Stop: 04/25/20 00:34 Lisinopril (Lisinopril 20 Mg Tab) 20 mg PO BID [facility] Stop: 04/25/20 08:59 Last Admin: 03/26/20 08:44 Dose: 20 mg Documented by: Metoprolol Succinate (Metoprolol Succ 25mg Ext Rel Tab) 12.5 mg PO DAILY [facility] Stop: 04/25/20 08:59 Last Admin: 03/26/20 08:47 Dose: 12.5 mg Documented by: Nitroglycerin (Nitroglycerin Sl 0.4 Mg/Tab Tab) 0.4 mg SL UD PRN PRN Reason: Chest Pain Stop: 04/25/20 00:34 Pantoprazole Sodium (Pantoprazole 40 Mg Tab) 40 mg PO QAM [facility] Stop: 04/25/20 08:59 Last Admin: 03/26/20 08:46 Dose: 40 mg Documented by: Polyethylene Glycol (Polyethylene (Miralax) 17 Gm Pack) 17 gm PO DAILY PRN PRN Reason: Constipation Stop: 04/25/20 00:34 Potassium Chloride (Potassium Chloride 10 Meq Tabcr) 10 meq PO MoWeFr@0900 [facility] Stop: 04/27/20 08:59 Sodium Chloride (Sodium Chloride 0.9% 10ml Flush) 30 ml IV Q24H [facility] Stop: 03/30/20 01:01 Last Admin: 03/26/20 03:35 Dose: 30 ml Documented by: Umeclidinium/Vilanterol (Umeclidinium/Vilanterol 62.5/25mcg 7 Puffs/Inhaler) 1 puffs INH DAILY [facility] Stop: 04/25/20 08:59 Last Admin: 03/26/20 08:45 Dose: 1 puffs Documented by:
[2020-03-26] MEDS: REMDESIVIR 100 MG in SODIUM CHLORIDE 0.9% 230 ML IV SCH (19:38)
[2020-03-26] MEDS: ATORVASTATIN 40 MG TAB PO SCH (19:43)
[2020-03-27] MEDS: UMECLIDINIUM/VILANTEROL 62.5/25MCG 7 PUFFS/INHALER INH SCH (08:05)
[2020-03-27] MEDS: FLUTICASONE FUROATE 100MCG 14 PUFFS/INHALER INH SCH (08:05)
[2020-03-27] MEDS: DOXYCYCLINE HYCLATE 100 MG CAP PO SCH ×2 (08:06→21:33)
[2020-03-27] MEDS: FLUTICASONE PROPIONATE NA SPR 16 GM BTL SCH (08:06)
[2020-03-27] MEDS: lisinopril 20 MG TAB PO SCH ×2 (08:07→21:33)
[2020-03-27 08:08] LABS: Hemoglobin 15.7 g/dL (14.0-18.0); Mean Corpuscular Hemoglobin 30.4 pg (25-34); Mean Corpuscular Hgb Conc 33.4 g/dL (32-36); Mean Corpuscular Volume 91.1 fL (80-100); Mean Platelet Volume 10.3 fL (7.4-10.4); Platelet Count 204 K/uL (130-400); RDW Coefficient of Variation 13.2 % (11.5-14.5); Red Blood Count 5.16 M/uL (4.7-6.1); White Blood Count 11.61 K/uL (4.8-10.8)
[2020-03-27] MEDS: CITALOPRAM 20 MG TAB PO SCH (08:08)
[2020-03-27] MEDS: ASPIRIN 81 MG ECTAB PO SCH (08:08)
[2020-03-27] MEDS: CLOPIDOGREL BISULFATE 75 MG TAB PO SCH (08:08)
[2020-03-27] MEDS: METOPROLOL SUCC 25MG EXT REL TAB PO SCH (08:09)
[2020-03-27] MEDS: amLODIPine BESYLATE 5 MG TAB PO SCH (08:10)
[2020-03-27] MEDS: FAMOTIDINE 20 MG TAB PO SCH ×2 (08:10→21:34)
[2020-03-27] MEDS: PANTOprazole 40 MG TAB PO SCH (08:10)
[2020-03-27] MEDS: ENOXAPARIN INJ 40 MG/0.4 ML SYR SQ SCH (08:11)
[2020-03-27] MEDS: DEXAMETHASONE SOD PHOSPHATE 6 MG in SYRINGE 0 ML IV SCH (08:12)
[2020-03-27 08:33] LABS: Immature Granulocytes # (auto) 0.03 K/uL (0.00-0.02); Immature Granulocytes % (auto) 0.3 %; Lymphocytes # (auto) 1.58 K/uL (1.2-3.4); Lymphocytes % (auto) 13.6 %; Monocytes # (auto) 0.89 K/uL (0.11-0.59); Monocytes % (auto) 7.7 %; Neutrophils # (auto) 9.11 K/uL (1.4-6.5); Neutrophils % (auto) 78.4 %
[2020-03-27 08:42] LABS: Albumin Level 3.2 gm/dl (3.4-5.0); BUN Creatinine Ratio 22.5 (10-20); Calcium 8.8 mg/dl (8.5-10.1); Est GFR (African American) 81.8; Est GFR (Non-African American) 70.6; Potassium 3.9 mmol/L (3.5-5.1)
[2020-03-27 08:44] LABS: Albumin Globulin Ratio 0.7 (0.9-2); Globulin 4.5 gm/dl (2.5-4.0); Total Protein 7.7 gm/dl (6.4-8.2)
--- NOTE | 2020-03-27 13:29 | Hospitalist Progress Note ---
Date of Service March 27, 2020 Assessment & Plan (1) COVID-19: Admitted with fever and shortness of breath and noted to be COVID-19 positive No definite pneumonia on x-ray Required 2 L of nasal cannula to maintain saturation Ferritin is minimally high at 532 and CRP minimally high at 4.75. LFTs are normal Has been started with intravenous remdesivir and dexamethasone Has been feeling worse this morning and requiring up to 4 L of oxygen to maintain saturation Discussed with the patient and will give convalescent plasma Continue current treatment as well (2) Hypoxia: Likely secondary to COPD and complicated by Covid infection without pneumo yuliet Requiring 1 L of nasal cannula oxygen to maintain saturation He has been requiring more oxygen to maintain saturation as of today there is 03/27/2020 (3) COPD (chronic obstructive pulmonary disease): Does not have any exacerbation at this time Minimal to no wheezing on examination Doubt any acute exacerbation of COPD (4) HTN (hypertension): Blood pressure is on the upper side We will monitor (5) NSTEMI (non-ST elevated myocardial infarction): History of CAD with NSTEMI No acute symptoms DVT prophylaxis Lovenox CODE STATUS Full Admission and Anticipated Discharge Date Admission Date: March 25, 2020 Subjective 03/26/2020 The patient was seen and examined in Covid unit with telemetry He has been feeling a lot better since admission Denies any significant shortness of breath at rest Denies any fever and/or chills, nausea and/or vomiting and has been ambulating in the room 03/27/2020 The patient was seen and examined in Covid unit in the telemetry section He has pain in requiring more oxygen as of this morning Complains today of cough and moderate shortness of breath at rest Has been conversing well Review of Systems Review of Systems: All systems reviewed and are unremarkable except as noted below Respiratory: + cough and + dyspnea on exertion; no dyspnea (At rest) Physical Exam Physical Exam: Sitting on a chair with mild to moderate distress due to shortness of breath Constitutional: well developed, well nourished and + obese Eyes: PERRL, conjunctivae normal, anicteric sclerae ENMT: external ear and nose normal, oropharynx normal Neck: trachea midline, no thyromegaly Respiratory: normal respiratory effort; no respiratory distress (At rest) Auscultation: + diminished lung sounds (At the bases) and + wheezes (Minimal wheezing); no crackles Cardiovascular: Rate/Rhythm: regular rate and regular rhythm Heart Sounds: no murmur Extremities: no edema Gastrointestinal (Abdomen): Inspection/Auscultation: normal bowel sounds; abdomen not distended Percussion/Palpation: abdomen soft; abdomen nontender Musculoskeletal: No acute arthritis in any joint Psychiatric: A+Ox3, euthymic affect Results & Data Results & Data ([facility]) Vital Signs (Past 12 Hours) Vital Signs Temp Pulse Pulse Pulse Resp BP Pulse Ox 03/27/20 11:15 37.6 C H 84 20 151/82 H 91 03/27/20 10:15 65 03/27/20 07:21 36.9 C 74 20 147/89 H 93 03/27/20 04:05 36.8 C 73 18 155/88 H 95 03/27/20 03:00 70 14 94 Laboratory Results Short CBC 03/27/20 Range/Units 07:12 WBC 11.61 H (4.8-10.8) K/uL Hgb 15.7 (14.0-18.0) g/dL Hct 47.0 (42-52) % Plt Count 204 (130-400) K/uL BMP 03/27/20 07:12 Sodium 139 Potassium 3.9 Chloride 109 H Carbon Dioxide 24 BUN 25 H Creatinine 1.10 Glucose 110 H Calcium 8.8 Liver Function 03/27/20 Range/Units 07:12 Total Bilirubin 1.0 (0.2-1) mg/dl AST 19 (15-37) U/L ALT 25 (12-78) U/L Alkaline Phosphatase 80 (45-117) U/L Albumin 3.2 L (3.4-5.0) gm/dl Medications Administered Current Inpatient Medications Acetaminophen (Acetaminophen 325 Mg Tab) 650 mg PO Q4H PRN PRN Reason: Pain or Fever Stop: 04/25/20 00:34 Last Admin: 03/26/20 21:04 Dose: 650 mg Documented by: Albuterol (Albuterol Hfa 8 Gm Inhaler) 2 puffs INH Q4H PRN PRN Reason: Wheezing Stop: 04/25/20 00:34 Amlodipine Besylate (Amlodipine Besylate 5 Mg Tab) [address] [facility] Stop: 04/25/20 08:59 Last Admin: 03/27/20 08:10 Dose: 5 mg Documented by: Aspirin (Aspirin 81 Mg Ectab) [facility] [place] Stop: 04/25/20 08:59 Last Admin: 03/27/20 08:08 Dose: 81 mg Documented by: Atorvastatin Calcium (Atorvastatin 40 Mg Tab) 40 mg PO QPM [facility] Stop: 04/25/20 20:59 Last Admin: 03/26/20 19:43 Dose: 40 mg Documented by: Citalopram Hydrobromide (Citalopram 20 Mg Tab) [address] [facility] Stop: 04/25/20 08:59 Last Admin: 03/27/20 08:08 Dose: 10 mg Documented by: Clopidogrel Bisulfate (Clopidogrel Bisulfate 75 Mg Tab) [address] [facility] Stop: 04/25/20 08:59 Last Admin: 03/27/20 08:08 Dose: 75 mg Documented by: Doxycycline Hyclate (Doxycycline Hyclate 100 Mg Cap) 100 mg PO BID [facility] Stop: 04/02/20 00:34 Last Admin: 03/27/20 08:06 Dose: 100 mg Documented by: Enoxaparin Sodium (Enoxaparin Inj 40 Mg/0.4 Ml Syr) 40 mg SQ Q24H [facility] Stop: 04/25/20 08:59 Last Admin: 03/27/20 08:11 Dose: 40 mg Documented by: Famotidine (Famotidine 20 Mg Tab) 20 mg PO BID [facility] Stop: 04/25/20 08:59 Last Admin: 03/27/20 08:10 Dose: 20 mg Documented by: Fluticasone Furoate (Fluticasone Furoate 100mcg 14 Puffs/Inhaler) 1 puffs INH DAILY [facility] Stop: 04/25/20 08:59 Last Admin: 03/27/20 08:05 Dose: 1 puffs Documented by: Fluticasone Propionate (Fluticasone Propionate Na Spr 16 Gm Btl) 2 sprays NA QAM [facility] Stop: 04/25/20 08:59 Last Admin: 03/27/20 08:06 Dose: 2 sprays Documented by: Furosemide (Furosemide 20 Mg Tab) 20 mg PO MoWeFr@0900 [facility] Stop: 04/27/20 08:59 Remdesivir 100 mg/ Sodium (Chloride) 250 mls @ 250 mls/hr IV Q24H [facility]; Protocol Stop: 03/29/20 20:59 Last Infusion: 03/26/20 22:06 Dose: Infused Documented by: Dexamethasone Sodium Phosphate (6 mg/ Syringe) 1.5 mls @ 1 mls/min IV QAM [facility] Stop: 04/04/20 09:02 Last Admin: 03/27/20 08:12 Dose: 1 mls/min Documented by: Ipratropium [place] (Ipratropium [place] Neb Soln 0.02% 2.5 Ml Vial) 0.5 mg INH Q4H PRN PRN Reason: Shortness Of Breath Or Wheezing Stop: 04/25/20 00:34 Levalbuterol HCl (Levalbuterol 1.25mg/0.5ml Neb) 1.25 mg INH Q4H PRN PRN Reason: Shortness Of Breath Or Wheezing Stop: 04/25/20 00:34 Lisinopril (Lisinopril 20 Mg Tab) 20 mg PO BID [facility] Stop: 04/25/20 08:59 Last Admin: 03/27/20 08:07 Dose: 20 mg Documented by: Metoprolol Succinate (Metoprolol Succ 25mg Ext Rel Tab) 12.5 mg PO DAILY [facility] Stop: 04/25/20 08:59 Last Admin: 03/27/20 08:09 Dose: 12.5 mg Documented by: Nitroglycerin (Nitroglycerin Sl 0.4 Mg/Tab Tab) 0.4 mg SL UD PRN PRN Reason: Chest Pain Stop: 04/25/20 00:34 Pantoprazole Sodium (Pantoprazole 40 Mg Tab) 40 mg PO QAM [facility] Stop: 04/25/20 08:59 Last Admin: 03/27/20 08:10 Dose: 40 mg Documented by: Polyethylene Glycol (Polyethylene (Miralax) 17 Gm Pack) 17 gm PO DAILY PRN PRN Reason: Constipation Stop: 04/25/20 00:34 Potassium Chloride (Potassium Chloride 10 Meq Tabcr) 10 meq PO MoWeFr@0900 [facility] Stop: 04/27/20 08:59 Sodium Chloride (Sodium Chloride 0.9% 10ml Flush) 30 ml IV Q24H [facility] Stop: 03/30/20 01:01 Last Admin: 03/26/20 22:13 Dose: 30 ml Documented by: Umeclidinium/Vilanterol (Umeclidinium/Vilanterol 62.5/25mcg 7 Puffs/Inhaler) 1 puffs INH DAILY [facility] Stop: 04/25/20 08:59 Last Admin: 03/27/20 08:05 Dose: 1 puffs Documented by:
[2020-03-27] MEDS: REMDESIVIR 100 MG in SODIUM CHLORIDE 0.9% 230 ML IV SCH (19:44)
[2020-03-27] MEDS: ATORVASTATIN 40 MG TAB PO SCH (21:34)
[2020-03-28 08:03] LABS: BUN Creatinine Ratio 22.1 (10-20); C Reactive Protein 2.05 mg/dl (0-0.29); Calcium 8.5 mg/dl (8.5-10.1); Creatinine Clr Calc Pharmacy 81.4 ml/min; Est GFR (African American) 91.8; Est GFR (Non-African American) 79.2; Potassium 3.9 mmol/L (3.5-5.1)
[2020-03-28] MEDS: FLUTICASONE FUROATE 100MCG 14 PUFFS/INHALER INH SCH (08:29)
[2020-03-28] MEDS: UMECLIDINIUM/VILANTEROL 62.5/25MCG 7 PUFFS/INHALER INH SCH (08:29)
[2020-03-28] MEDS: lisinopril 20 MG TAB PO SCH ×2 (08:30→19:51)
[2020-03-28] MEDS: CITALOPRAM 20 MG TAB PO SCH (08:30)
[2020-03-28] MEDS: DOXYCYCLINE HYCLATE 100 MG CAP PO SCH ×2 (08:30→19:51)
[2020-03-28] MEDS: ASPIRIN 81 MG ECTAB PO SCH (08:31)
[2020-03-28] MEDS: PANTOprazole 40 MG TAB PO SCH (08:31)
[2020-03-28] MEDS: FAMOTIDINE 20 MG TAB PO SCH ×2 (08:33→19:52)
[2020-03-28] MEDS: METOPROLOL SUCC 25MG EXT REL TAB PO SCH (08:33)
[2020-03-28] MEDS: FUROSEMIDE 20 MG TAB PO SCH (08:33)
[2020-03-28] MEDS: amLODIPine BESYLATE 5 MG TAB PO SCH (08:33)
[2020-03-28] MEDS: CLOPIDOGREL BISULFATE 75 MG TAB PO SCH (08:34)
[2020-03-28] MEDS: POTASSIUM CHLORIDE 10 MEQ TABCR PO SCH (08:34)
[2020-03-28] MEDS: FLUTICASONE PROPIONATE NA SPR 16 GM BTL SCH (08:34)
[2020-03-28] MEDS: ENOXAPARIN INJ 40 MG/0.4 ML SYR SQ SCH (08:35)
[2020-03-28] MEDS: DEXAMETHASONE SOD PHOSPHATE 6 MG in SYRINGE 0 ML IV SCH (08:56)
--- NOTE | 2020-03-28 14:43 | Hospitalist Progress Note ---
Date of Service March 28, 2020 Assessment & Plan (1) COVID-19: Admitted with fever and shortness of breath and noted to be COVID-19 positive No definite pneumonia on x-ray Required 2 L of nasal cannula to maintain saturation Ferritin is minimally high at 532 and CRP minimally high at 4.75. LFTs are normal Has been started with intravenous remdesivir and dexamethasone Has been feeling worse this morning and requiring up to 4 L of oxygen to maintain saturation Discussed with the patient and will give convalescent plasma Clinically much better today If the condition improves further may will be discharged tomorrow (2) Hypoxia: Likely secondary to COPD and complicated by Covid infection without pneumonia Requiring 1 L of nasal cannula oxygen to maintain saturation He has been requiring more oxygen to maintain saturation as of today there is 03/27/2020 Has been requiring anywhere from 0 to 2 L of nasal cannula oxygen to maintain saturation (3) COPD (chronic obstructive pulmonary disease): Does not have any exacerbation at this time Minimal to no wheezing on examination Doubt any acute exacerbation of COPD No COPD exacerbation (4) HTN (hypertension): Blood pressure is on the upper side We will monitor (5) NSTEMI (non-ST elevated myocardial infarction): History of CAD with NSTEMI No acute symptoms DVT prophylaxis Lovenox CODE STATUS Full Advised to walk around inside the room Admission and Anticipated Discharge Date Admission Date: March 25, 2020 Subjective 03/26/2020 The patient was seen and examined in Covid unit with telemetry He has been feeling a lot better since admission Denies any significant shortness of breath at rest Denies any fever and/or chills, nausea and/or vomiting and has been ambulating in the room 03/27/2020 The patient was seen and examined in Covid unit in the telemetry section He has pain in requiring more oxygen as of this morning Complains today of cough and moderate shortness of breath at rest Has been conversing well 03/28/2020 The patient was seen and examined in Covid unit in telemetry section He has been feeling much better today Requiring 2 L of oxygen to maintain saturation Has cough and no shortness of breath at rest Review of Systems Review of Systems: All systems reviewed and are unremarkable except as noted below Respiratory: + cough and + dyspnea on exertion; no dyspnea (At rest) Physical Exam Physical Exam: Sitting on a chair without any shortness of breath at rest Constitutional: well developed, well nourished and + obese; not ill appearing Eyes: PERRL, conjunctivae normal, anicteric sclerae ENMT: external ear and nose normal, oropharynx normal Neck: trachea midline, no thyromegaly Respiratory: normal respiratory effort and + cough; no respiratory distress (At rest) Auscultation: + diminished lung sounds (At the bases) and + wheezes (Minimal wheezing); no crackles Cardiovascular: Rate/Rhythm: regular rate and regular rhythm Heart Sounds: no murmur Extremities: no edema Gastrointestinal (Abdomen): Inspection/Auscultation: normal bowel sounds; abdomen not distended Percussion/Palpation: abdomen soft; abdomen nontender Musculoskeletal: No acute arthritis in any joint Neurologic: Alert, awake and oriented x3. No focal sensory and/or motor deficit appreciated Psychiatric: A+Ox3, euthymic affect Results & Data Results & Data ([facility]) Vital Signs (Past 12 Hours) Vital Signs Temp Pulse Pulse Pulse Resp BP Pulse Ox 03/28/20 11:29 36.5 C 63 18 127/75 92 03/28/20 08:00 64 03/28/20 07:16 36.9 C 60 18 141/86 H 91 03/28/20 03:56 60 13 91 03/28/20 03:36 36.6 C 61 19 132/81 92 Laboratory Results [facility] 03/28/20 06:49 Sodium 140 Potassium 3.9 Chloride 109 H Carbon Dioxide 25 BUN 22 H Creatinine 1.00 Glucose 103 H Calcium 8.5 Liver Function 03/28/20 Range/Units 06:49 AST 17 (15-37) U/L ALT 20 (12-78) U/L Medications Administered Current Inpatient Medications Acetaminophen (Acetaminophen 325 Mg Tab) 650 mg PO Q4H PRN PRN Reason: Pain or Fever Stop: 04/25/20 00:34 Last Admin: 03/26/20 21:04 Dose: 650 mg Documented by: Albuterol (Albuterol Hfa 8 Gm Inhaler) 2 puffs INH Q4H PRN PRN Reason: Wheezing Stop: 04/25/20 00:34 Amlodipine Besylate (Amlodipine Besylate 5 Mg Tab) [facility] Stop: 04/25/20 08:59 Last Admin: 03/28/20 08:33 Dose: 5 mg Documented by: Aspirin (Aspirin 81 Mg Ectab) [facility] Stop: 04/25/20 08:59 Last Admin: 03/28/20 08:31 Dose: 81 mg Documented by: Atorvastatin Calcium (Atorvastatin 40 Mg Tab) 40 mg PO QPM [facility] Stop: 04/25/20 20:59 Last Admin: 03/27/20 21:34 Dose: 40 mg Documented by: Citalopram Hydrobromide (Citalopram 20 Mg Tab) 10 mg PO [facility] Stop: 04/25/20 08:59 Last Admin: 03/28/20 08:30 Dose: 10 mg Documented by: Clopidogrel Bisulfate (Clopidogrel Bisulfate 75 Mg Tab) 75 mg PO [facility] Stop: 04/25/20 08:59 Last Admin: 03/28/20 08:34 Dose: 75 mg Documented by: Doxycycline Hyclate (Doxycycline Hyclate 100 Mg Cap) 100 mg PO BID [facility] Stop: 04/02/20 00:34 Last Admin: 03/28/20 08:30 Dose: 100 mg Documented by: Enoxaparin Sodium (Enoxaparin Inj 40 Mg/0.4 Ml Syr) 40 mg SQ Q24H [facility] Stop: 04/25/20 08:59 Last Admin: 03/28/20 08:35 Dose: 40 mg Documented by: Famotidine (Famotidine 20 Mg Tab) 20 mg PO BID [facility] Stop: 04/25/20 08:59 Last Admin: 03/28/20 08:33 Dose: 20 mg Documented by: Fluticasone Furoate (Fluticasone Furoate 100mcg 14 Puffs/Inhaler) 1 puffs INH DAILY [facility] Stop: 04/25/20 08:59 Last Admin: 03/28/20 08:29 Dose: 1 puffs Documented by: Fluticasone Propionate (Fluticasone Propionate Na Spr 16 Gm Btl) 2 sprays NA [facility] Stop: 04/25/20 08:59 Last Admin: 03/28/20 08:34 Dose: 2 sprays Documented by: Furosemide (Furosemide 20 Mg Tab) 20 mg PO MoWeFr@0900 [facility] Stop: 04/27/20 08:59 Last Admin: 03/28/20 08:33 Dose: 20 mg Documented by: Remdesivir 100 mg/ Sodium (Chloride) 250 mls @ 250 mls/hr IV Q24H [facility]; Protocol Stop: 03/29/20 20:59 Last Infusion: 03/27/20 21:34 Dose: 0 mls/hr Documented by: Dexamethasone Sodium Phosphate (6 mg/ Syringe) 1.5 mls @ 1 mls/min IV QAM [facility] Stop: 04/04/20 09:02 Last Admin: 03/28/20 08:56 Dose: 1 mls/min Documented by: Ipratropium [place] (Ipratropium [place] Neb Soln 0.02% 2.5 Ml Vial) 0.5 mg INH Q4H PRN PRN Reason: Shortness Of Breath Or Wheezing Stop: 04/25/20 00:34 Levalbuterol HCl (Levalbuterol 1.25mg/0.5ml Neb) 1.25 mg INH Q4H PRN PRN Reason: Shortness Of Breath Or Wheezing Stop: 04/25/20 00:34 Lisinopril (Lisinopril 20 Mg Tab) 20 mg PO BID [facility] Stop: 04/25/20 08:59 Last Admin: 03/28/20 08:30 Dose: 20 mg Documented by: Metoprolol Succinate (Metoprolol Succ 25mg Ext Rel Tab) 12.5 mg PO DAILY [facility] Stop: 04/25/20 08:59 Last Admin: 03/28/20 08:33 Dose: 12.5 mg Documented by: Nitroglycerin (Nitroglycerin Sl 0.4 Mg/Tab Tab) 0.4 mg SL UD PRN PRN Reason: Chest Pain Stop: 04/25/20 00:34 Pantoprazole Sodium (Pantoprazole 40 Mg Tab) 40 mg PO QAM [facility] Stop: 04/25/20 08:59 Last Admin: 03/28/20 08:31 Dose: 40 mg Documented by: Polyethylene Glycol (Polyethylene (Miralax) 17 Gm Pack) 17 gm PO DAILY PRN PRN Reason: Constipation Stop: 04/25/20 00:34 Potassium Chloride (Potassium Chloride 10 Meq Tabcr) 10 meq PO MoWeFr@0900 [facility] Stop: 04/27/20 08:59 Last Admin: 03/28/20 08:34 Dose: 10 meq Documented by: Sodium Chloride (Sodium Chloride 0.9% 10ml Flush) 30 ml IV Q24H [facility] Stop: 03/30/20 01:01 Last Admin: 03/26/20 22:13 Dose: 30 ml Documented by: Umeclidinium/Vilanterol (Umeclidinium/Vilanterol 62.5/25mcg 7 Puffs/Inhaler) 1 puffs INH DAILY [facility] Stop: 04/25/20 08:59 Last Admin: 03/28/20 08:29 Dose: 1 puffs Documented by:
[2020-03-28] MEDS: REMDESIVIR 100 MG in SODIUM CHLORIDE 0.9% 230 ML IV SCH (19:45)
[2020-03-28] MEDS: ATORVASTATIN 40 MG TAB PO SCH (19:51)
[2020-03-28] MEDS: SODIUM CHLORIDE 0.9% 10ML FLUSH IV SCH (22:30)
[2020-03-29 08:11] LABS: Creatinine Clr Calc Pharmacy 89.4 ml/min; Est GFR (African American) 102.9; Est GFR (Non-African American) 88.8
[2020-03-29] MEDS: FLUTICASONE FUROATE 100MCG 14 PUFFS/INHALER INH SCH (08:24)
[2020-03-29] MEDS: FLUTICASONE PROPIONATE NA SPR 16 GM BTL SCH (08:24)
[2020-03-29] MEDS: DEXAMETHASONE SOD PHOSPHATE 6 MG in SYRINGE 0 ML IV SCH (08:24)
[2020-03-29] MEDS: UMECLIDINIUM/VILANTEROL 62.5/25MCG 7 PUFFS/INHALER INH SCH (08:24)
[2020-03-29] MEDS: lisinopril 20 MG TAB PO SCH ×2 (08:24→20:30)
[2020-03-29] MEDS: METOPROLOL SUCC 25MG EXT REL TAB PO SCH ×2 (08:25→08:28)
[2020-03-29] MEDS: CLOPIDOGREL BISULFATE 75 MG TAB PO SCH (08:25)
[2020-03-29] MEDS: DOXYCYCLINE HYCLATE 100 MG CAP PO SCH ×2 (08:25→20:31)
[2020-03-29] MEDS: PANTOprazole 40 MG TAB PO SCH (08:25)
[2020-03-29] MEDS: FAMOTIDINE 20 MG TAB PO SCH ×2 (08:25→20:31)
[2020-03-29] MEDS: CITALOPRAM 20 MG TAB PO SCH (08:26)
[2020-03-29] MEDS: ASPIRIN 81 MG ECTAB PO SCH (08:26)
[2020-03-29] MEDS: ENOXAPARIN INJ 40 MG/0.4 ML SYR SQ SCH (08:26)
[2020-03-29] MEDS: amLODIPine BESYLATE 5 MG TAB PO SCH (08:26)
--- NOTE | 2020-03-29 14:58 | Hospitalist Progress Note ---
Date of Service March 29, 2020 Assessment & Plan (1) COVID-19: Admitted with fever and shortness of breath and noted to be COVID-19 positive No definite pneumonia on x-ray Required 2 L of nasal cannula to maintain saturation Ferritin is minimally high at 532 and CRP minimally high at 4.75. LFTs are normal Has been started with intravenous remdesivir and dexamethasone Has been feeling worse this morning and requiring up to 4 L of oxygen to maintain saturation Discussed with the patient and will give convalescent plasma Requiring only 1 L to 2 L of nasal cannula oxygen Has been ambulating in the room Cough and shortness of breath have improved Likely to be discharged tomorrow (2) Hypoxia: Likely secondary to COPD and complicated by Covid infection without pneumonia Requiring 1 L of nasal cannula oxygen to maintain saturation He has been requiring more oxygen to maintain saturation as of today there is 03/27/2020 Has been requiring anywhere from 0 to 2 L of nasal cannula oxygen to maintain saturation Requires up to 1 L of oxygen to maintain saturation (3) COPD (chronic obstructive pulmonary disease): Does not have any exacerbation at this time Minimal to no wheezing on examination Doubt any acute exacerbation of COPD No COPD exacerbation (4) HTN (hypertension): Blood pressure is on the upper side We will monitor (5) NSTEMI (non-ST elevated myocardial infarction): History of CAD with NSTEMI No acute symptoms DVT prophylaxis Lovenox CODE STATUS Full Advised to walk around inside the room Likely discharge tomorrow Admission and Anticipated Discharge Date Admission Date: March 25, 2020 Subjective 03/26/2020 The patient was seen and examined in Covid unit with telemetry He has been feeling a lot better since admission Denies any significant shortness of breath at rest Denies any fever and/or chills, nausea and/or vomiting and has been ambulating in the room 03/27/2020 The patient was seen and examined in Covid unit in the telemetry section He has pain in requiring more oxygen as of this morning Complains today of cough and moderate shortness of breath at rest Has been conversing well 03/28/2020 The patient was seen and examined in Covid unit in telemetry section He has been feeling much better today Requiring 2 L of oxygen to maintain saturation Has cough and no shortness of breath at rest 03/29/2020 The patient was seen and examined in Covid unit He has been feeling a lot better and requiring up to 1 to 2 L of nasal cannula oxygen to maintain saturation Cough is improved and shortness of breath is improved to Denies any abdominal pain, nausea and or vomiting or diarrhea Review of Systems Review of Systems: All systems reviewed and are unremarkable except as noted below Respiratory: + cough and + dyspnea on exertion; no dyspnea (At rest) Physical Exam Physical Exam: Sitting on a chair without any shortness of breath at rest Constitutional: well developed, well nourished and + obese; not ill appearing Eyes: PERRL, conjunctivae normal, anicteric sclerae ENMT: external ear and nose normal, oropharynx normal Neck: trachea midline, no thyromegaly Respiratory: normal respiratory effort and + cough; no respiratory distress (At rest) Auscultation: lungs clear to auscultation bilaterally, + diminished lung sounds (Very minimal) and + wheezes (Minimal wheezing); no crackles Cardiovascular: Rate/Rhythm: regular rate and regular rhythm Heart Sounds: no murmur Extremities: no edema Gastrointestinal (Abdomen): Inspection/Auscultation: normal bowel sounds; abdomen not distended Percussion/Palpation: abdomen soft; abdomen nontender Neurologic: Alert, awake and oriented x3. No focal sensory and motor deficit appreciated Psychiatric: A+Ox3, euthymic affect Results & Data Results & Data ([facility]) Vital Signs (Past 12 Hours) Vital Signs Temp Pulse Pulse Pulse Resp BP Pulse Ox 03/29/20 11:00 36.5 C 57 L 16 132/78 91 03/29/20 08:50 36.6 C 55 L 12 146/79 H 93 03/29/20 05:00 36.7 C 59 L 20 139/88 93 03/29/20 03:24 47 L 18 93 Laboratory Results [facility] 03/29/20 06:33 Creatinine 0.91 Liver Function 03/29/20 Range/Units 06:33 AST 15 (15-37) U/L ALT 25 (12-78) U/L Medications Administered Current Inpatient Medications Acetaminophen (Acetaminophen 325 Mg Tab) 650 mg PO Q4H PRN PRN Reason: Pain or Fever Stop: 04/25/20 00:34 Last Admin: 03/26/20 21:04 Dose: 650 mg Documented by: Albuterol (Albuterol Hfa 8 Gm Inhaler) 2 puffs INH Q4H PRN PRN Reason: Wheezing Stop: 04/25/20 00:34 Amlodipine Besylate (Amlodipine Besylate 5 Mg Tab) [facility] Stop: 04/25/20 08:59 Last Admin: 03/29/20 08:26 Dose: 5 mg Documented by: Aspirin (Aspirin 81 Mg Ectab) 81 mg PO QAM [facility] Stop: 04/25/20 08:59 Last Admin: 03/29/20 08:26 Dose: 81 mg Documented by: Atorvastatin Calcium (Atorvastatin 40 Mg Tab) 40 mg PO QPM [facility] Stop: 04/25/20 20:59 Last Admin: 03/28/20 19:51 Dose: 40 mg Documented by: Citalopram Hydrobromide (Citalopram 20 Mg Tab) 10 mg PO [facility] Stop: 04/25/20 08:59 Last Admin: 03/29/20 08:26 Dose: 10 mg Documented by: Clopidogrel Bisulfate (Clopidogrel Bisulfate 75 Mg Tab) [facility] Stop: 04/25/20 08:59 Last Admin: 03/29/20 08:25 Dose: 75 mg Documented by: Doxycycline Hyclate (Doxycycline Hyclate 100 Mg Cap) 100 mg PO BID [facility] Stop: 04/02/20 00:34 Last Admin: 03/29/20 08:25 Dose: 100 mg Documented by: Enoxaparin Sodium (Enoxaparin Inj 40 Mg/0.4 Ml Syr) 40 mg SQ Q24H [facility] Stop: 04/25/20 08:59 Last Admin: 03/29/20 08:26 Dose: 40 mg Documented by: Famotidine (Famotidine 20 Mg Tab) 20 mg PO BID [facility] Stop: 04/25/20 08:59 Last Admin: 03/29/20 08:25 Dose: 20 mg Documented by: Fluticasone Furoate (Fluticasone Furoate 100mcg 14 Puffs/Inhaler) 1 puffs INH DAILY [facility] Stop: 04/25/20 08:59 Last Admin: 03/29/20 08:24 Dose: 1 puffs Documented by: Fluticasone Propionate (Fluticasone Propionate Na Spr 16 Gm Btl) 2 sprays NA QAM [facility] Stop: 04/25/20 08:59 Last Admin: 03/29/20 08:24 Dose: 1 sprays Documented by: Furosemide (Furosemide 20 Mg Tab) 20 mg PO MoWeFr@0900 [facility] Stop: 04/27/20 08:59 Last Admin: 03/28/20 08:33 Dose: 20 mg Documented by: Remdesivir 100 mg/ Sodium (Chloride) 250 mls @ 250 mls/hr IV Q24H [facility]; Protocol Stop: 03/29/20 20:59 Last Infusion: 03/28/20 22:30 Dose: Infused Documented by: Dexamethasone Sodium Phosphate (6 mg/ Syringe) 1.5 mls @ 1 mls/min [facility] Stop: 04/04/20 09:02 Last Admin: 03/29/20 08:24 Dose: 1 mls/min Documented by: Ipratropium [place] (Ipratropium [place] Neb Soln 0.02% 2.5 Ml Vial) 0.5 mg INH Q4H PRN PRN Reason: Shortness Of Breath Or Wheezing Stop: 04/25/20 00:34 Levalbuterol HCl (Levalbuterol 1.25mg/0.5ml Neb) 1.25 mg INH Q4H PRN PRN Reason: Shortness Of Breath Or Wheezing Stop: 04/25/20 00:34 Lisinopril (Lisinopril 20 Mg Tab) 20 mg PO BID [facility] Stop: 04/25/20 08:59 Last Admin: 03/29/20 08:24 Dose: 20 mg Documented by: Metoprolol Succinate (Metoprolol Succ 25mg Ext Rel Tab) 12.5 mg PO DAILY [facility] Stop: 04/25/20 08:59 Last Admin: 03/29/20 08:28 Dose: Not Given Documented by: Nitroglycerin (Nitroglycerin Sl 0.4 Mg/Tab Tab) 0.4 mg SL UD PRN PRN Reason: Chest Pain Stop: 04/25/20 00:34 Pantoprazole Sodium (Pantoprazole 40 Mg Tab) 40 [facility] Stop: 04/25/20 08:59 Last Admin: 03/29/20 08:25 Dose: 40 mg Documented by: Polyethylene Glycol (Polyethylene (Miralax) 17 Gm Pack) 17 gm PO DAILY PRN PRN Reason: Constipation Stop: 04/25/20 00:34 Potassium Chloride (Potassium Chloride 10 Meq Tabcr) 10 meq PO MoWeFr@0900 [facility] Stop: 04/27/20 08:59 Last Admin: 03/28/20 08:34 Dose: 10 meq Documented by: Sodium Chloride (Sodium Chloride 0.9% 10ml Flush) 30 ml IV Q24H [facility] Stop: 03/30/20 01:01 Last Admin: 03/28/20 22:30 Dose: 30 ml Documented by: Umeclidinium/Vilanterol (Umeclidinium/Vilanterol 62.5/25mcg 7 Puffs/Inhaler) 1 puffs INH DAILY [facility] Stop: 04/25/20 08:59 Last Admin: 03/29/20 08:24 Dose: 1 puffs Documented by:
[2020-03-29] MEDS: REMDESIVIR 100 MG in SODIUM CHLORIDE 0.9% 230 ML IV SCH (20:27)
[2020-03-29] MEDS: ATORVASTATIN 40 MG TAB PO SCH (20:31)
[2020-03-30] MEDS: SODIUM CHLORIDE 0.9% 10ML FLUSH IV SCH (00:58)
[2020-03-30] MEDS: DEXAMETHASONE SOD PHOSPHATE 6 MG in SYRINGE 0 ML IV SCH (08:14)
[2020-03-30] MEDS: FLUTICASONE FUROATE 100MCG 14 PUFFS/INHALER INH SCH (08:14)
[2020-03-30] MEDS: UMECLIDINIUM/VILANTEROL 62.5/25MCG 7 PUFFS/INHALER INH SCH (08:14)
[2020-03-30] MEDS: FLUTICASONE PROPIONATE NA SPR 16 GM BTL SCH (08:15)
[2020-03-30] MEDS: POTASSIUM CHLORIDE 10 MEQ TABCR PO SCH (08:16)
[2020-03-30] MEDS: CLOPIDOGREL BISULFATE 75 MG TAB PO SCH (08:17)
[2020-03-30] MEDS: ENOXAPARIN INJ 40 MG/0.4 ML SYR SQ SCH (08:17)
[2020-03-30] MEDS: amLODIPine BESYLATE 5 MG TAB PO SCH (08:17)
[2020-03-30] MEDS: FUROSEMIDE 20 MG TAB PO SCH (08:17)
[2020-03-30] MEDS: DOXYCYCLINE HYCLATE 100 MG CAP PO SCH (08:17)
[2020-03-30] MEDS: ASPIRIN 81 MG ECTAB PO SCH (08:17)
[2020-03-30] MEDS: FAMOTIDINE 20 MG TAB PO SCH (08:18)
[2020-03-30] MEDS: METOPROLOL SUCC 25MG EXT REL TAB PO SCH (08:19)
[2020-03-30] MEDS: PANTOprazole 40 MG TAB PO SCH (08:19)
[2020-03-30] MEDS: CITALOPRAM 20 MG TAB PO SCH (08:25)
[2020-03-30] MEDS: lisinopril 20 MG TAB PO SCH (08:41)
[2020-03-30 09:24] LABS: Basophils # (auto) 0.01 K/uL (0-0.2); Basophils % (auto) 0.1 %; Hematocrit (blood only) 48.1 % (42-52); Hemoglobin 16.4 g/dL (14.0-18.0); Immature Granulocytes # (auto) 0.06 K/uL (0.00-0.02); Immature Granulocytes % (auto) 0.5 %; Lymphocytes # (auto) 1.82 K/uL (1.2-3.4); Lymphocytes % (auto) 15.3 %; Mean Corpuscular Hemoglobin 30.5 pg (25-34); Mean Corpuscular Hgb Conc 34.1 g/dL (32-36); Mean Corpuscular Volume 89.6 fL (80-100); Mean Platelet Volume 10.6 fL (7.4-10.4); Monocytes # (auto) 0.73 K/uL (0.11-0.59); Monocytes % (auto) 6.1 %; Neutrophils # (auto) 9.31 K/uL (1.4-6.5); Platelet Count 309 K/uL (130-400); RDW Standard Deviation 42.4 fL (36.4-46.3); Red Blood Count 5.37 M/uL (4.7-6.1); White Blood Count 11.93 K/uL (4.8-10.8)
[2020-03-30 09:50] LABS: BUN Creatinine Ratio 28.5 (10-20); Calcium 8.6 mg/dl (8.5-10.1); Creatinine Clr Calc Pharmacy 88.7 ml/min; Est GFR (African American) 102.9; Est GFR (Non-African American) 88.8; Potassium 3.7 mmol/L (3.5-5.1)
--- NOTE | 2020-03-30 18:02 | Hospitalist Progress Note ---
Date of Service March 30, 2020 Assessment & Plan (1) COVID-19: (2) Hypoxia: (1) COVID-19: Per Dr. Feng's notes (previous hospitalist): Admitted with fever and shortness of breath No definite pneumonia on x-ray Required 2 L of nasal cannula to maintain saturation Ferritin is minimally high at 532 and CRP minimally high at 4.75. LFTs are normal Patient has completed 5 days of IV remdesivir Also has received 6 days of IV Decadron Also given convalescent plasma Patient gradually improved while admitted Excessively weaned off oxygen Cough, shortness of breath resolved Discharge plan: Continue 2 more days of p.o. Decadron Encouraged to ambulate frequently to avoid DVT Follow-up with PCP next week (2) Hypoxia: Likely secondary to COPD and complicated by Covid infection without pneumonia Management per above (3) COPD (chronic obstructive pulmonary disease): Not in exacerbation Minimal to no wheezing on examination (4) HTN (hypertension): Mildly elevated initially, overall stable upon discharge day Follow-up as an outpatient (5) NSTEMI (non-ST elevated myocardial infarction): History of CAD with NSTEMI No acute symptoms DVT prophylaxis Lovenox Disposition: Follow-up with PCP next week Of care discussed with patient in detail All questions were answered He is understanding of agreeable, comfortable with plan of care Admission and Anticipated Discharge Date Admission Date: March 25, 2020 Subjective Follow-up for COVID-19 pneumonia, acute hypoxic respiratory failure Seen sitting up in bed, comfortable, watching TV, in good spirits States that he feels fine overall States breathing is much better, no cough, chest pain, palpitations, dizziness No leg pain No abdominal pain, nausea vomiting States that he is almost back to his usual state of health States that he is ready and like to be discharged today Review of Systems Review of Systems: All systems reviewed & are unremarkable except as noted in Subjective Physical Exam Physical Exam: General- oriented x 3, not in distress, speaks in sentences with no effort or accessory muscle use Eyes- anicteric Neck- no JVD Lungs- clear breath sounds bilaterally, no rales/wheezes Heart- normal rate, regular rhythm; no murmurs Abdomen- normal bowel sounds, nondistended, soft, nontender Extremities- no pretibial edema, no calf tenderness Neuro- alert, oriented x 3; no gross focal neurologic deficits Skin- warm & dry Results & Data Results & Data ([facility]) Vital Signs (Past 12 Hours) Vital Signs Temp Pulse Pulse Pulse Pulse Resp Resp 03/30/20 16:12 37.2 C 60 18 03/30/20 15:49 37.2 C 60 18 03/30/20 11:40 36.5 C 59 L 18 03/30/20 10:10 73 61 59 L 20 03/30/20 07:16 36.9 C 61 17 Resp Resp BP BP Pulse Ox Pulse Ox Pulse Ox 03/30/20 16:12 129/81 137/83 95 03/30/20 15:49 129/81 95 03/30/20 11:40 148/91 H 90 03/30/20 10:10 18 18 89 L 93 03/30/20 07:16 133/95 90 Pulse Ox 03/30/20 16:12 03/30/20 15:49 03/30/20 11:40 03/30/20 10:10 92 03/30/20 07:16 Laboratory Results Laboratory Results - last 24 hr 03/27/20 03/30/20 03/30/20 12:37 08:33 08:33 WBC 11.93 H RBC 5.37 Hgb 16.4 Hct 48.1 MCV 89.6 MCH 30.5 MCHC 34.1 RDW Std Deviation 42.4 RDW Coeff of Shayne 13.0 Plt Count 309 MPV 10.6 H Immature Gran % (Auto) 0.5 Neut % (Auto) 78.0 Lymph % (Auto) 15.3 [place] % (Auto) 6.1 Eos % (Auto) 0.0 Baso % (Auto) 0.1 Neut # (Auto) 9.31 H Lymph # (Auto) 1.82 [place] # (Auto) 0.73 H Eos # (Auto) 0.00 Baso # (Auto) 0.01 Immature Gran # (Auto) 0.06 H Sodium 139 Potassium 3.7 Chloride 109 H Carbon Dioxide 26 Anion Gap 4.0 BUN 26 H Creatinine 0.91 Est Cr Clr Drug Dosing 88.7 Est GFR ( Amer) 102.9 Est GFR (Non-Af Amer) 88.8 BUN/Creatinine Ratio 28.5 H Glucose 105 H Calcium 8.6 AST 11 L ALT 30 Blood Type O Negative Antibody Screen NEGATIVE
--- NOTE | 2020-03-30 18:03 | Discharge Summary ---
Date of Service March 30, 2020 Admission HPI Per Admitting Provider CHIEF COMPLAINT: Shortness of breath and fever. HISTORY OF PRESENT ILLNESS: This is a 65-year-old male with past medical history significant for prediabetes, COPD, centrilobular emphysema, obstructive sleep apnea, nocturnal hypoxemia, lung nodule, hypertension, atherosclerotic heart disease, history of esophageal dysphagia, history of benign prostatic hypertrophy, history of urinary incontinence, left hydrocele, generalized osteoarthritis, lumbar degenerative disc disease, recurrent depression, history of tobacco abuse, who lives with his , daughter, and granddaughter, who presents with ongoing fever and shortness of breath the last 2-3 days and also he lost appetite and lost sense of smell and taste, that is the reason he came to the ER. After he received Decadron and oxygenation, he is feeling better. When he came in and he also had temp spike in the ER. The patient is having ongoing temperature for last 3 days. He was 88% on room air, after 3 liters it came up to high 90s. ER, tried to take out the oxygen and again oxygen sats dropped to 84%, currently saturating at 94% on 3 liters. Resting comfortably and hemodynamically stable, currently feeling better. He had a headache that is better now. No blurred visions. No earache, no runny nose, no sore throat, no difficulty swallowing, no chest pain. He was nauseous earlier. No abdominal pain. He had no bowel movements the last 3 days because he was not not eating much. Normal bladder movements. No swelling in the legs, no rash. Admission Exam Per Admitting Provider GENERAL: The patient is of moderate build, not in acute distress. VITAL SIGNS: T-max 38.3, pulse 61, respiratory rate 18, blood pressure 140/84, oxygen 94% on 3 liters, it was 82% on room air. HEENT: Pupils equal, round, and reactive to light. Oral mucosa moist. NECK: Supple, no neck masses seen. CARDIOVASCULAR: S1, S2 heard, regular rate and rhythm, no murmur, no gallop. RESPIRATORY SYSTEM: Normal AP diameter. No accessory muscle use. No wheezing, no crackles. ABDOMEN: Soft, bowel sounds present, nontender. No distention. CENTRAL NERVOUS SYSTEM: Cranial nerves II-XII grossly intact. Nonfocal. EXTREMITIES: No edema, no erythema. Principal Diagnosis COVID 19 INFECTION Discharge Exam General- oriented x 3, not in distress, speaks in sentences with no effort or accessory muscle use Eyes- anicteric Neck- no JVD Lungs- clear breath sounds bilaterally, no rales/wheezes Heart- normal rate, regular rhythm; no murmurs Abdomen- normal bowel sounds, nondistended, soft, nontender Extremities- no pretibial edema, no calf tenderness Neuro- alert, oriented x 3; no gross focal neurologic deficits Skin- warm & dry Discharge Data Allergies Allergy/AdvReac Type Severity Reaction Status Date / Time perflutren [From [employer]] Allergy Severe Joint Pain Verified 03/25/20 22:20 hydrochlorothiazide Allergy Intermediate Muscle Verified 03/25/20 22:20 cramping Consultations 03/25/20 21:51 ED Decision to Admit Stat 03/26/20 00:35 Consult Case Management - Discharge Planning Routine Hospital Course (1) COVID-19: Admitted with fever and shortness of breath and noted to be COVID-19 positive No definite pneumonia on x-ray Required 2 L of nasal cannula to maintain saturation Ferritin is minimally high at 532 and CRP minimally high at 4.75. LFTs are normal Has been started with intravenous remdesivir and dexamethasone Has been feeling worse this morning and requiring up to 4 L of oxygen to maintain saturation Discussed with the patient and will give convalescent plasma Requiring only 1 L to 2 L of nasal cannula oxygen Has been ambulating in the room Cough and shortness of breath have improved Likely to be discharged tomorrow (2) Hypoxia: (1) COVID-19: Per Dr. Feng's notes (previous hospitalist): Admitted with fever and shortness of breath No definite pneumonia on x-ray Required 2 L of nasal cannula to maintain saturation Ferritin is minimally high at 532 and CRP minimally high at 4.75. LFTs are normal Patient has completed 5 days of IV remdesivir Also has received 6 days of IV Decadron Also given convalescent plasma Patient gradually improved while admitted Excessively weaned off oxygen Cough, shortness of breath resolved Discharge plan: Continue 2 more days of p.o. Decadron Encouraged to ambulate frequently to avoid DVT Follow-up with PCP next week (2) Hypoxia: Likely secondary to COPD and complicated by Covid infection without pneumonia Management per above (3) COPD (chronic obstructive pulmonary disease): Not in exacerbation Minimal to no wheezing on examination (4) HTN (hypertension): Mildly elevated initially, overall stable upon discharge day Follow-up as an outpatient (5) NSTEMI (non-ST elevated myocardial infarction): History of CAD with NSTEMI No acute symptoms DVT prophylaxis Lovenox Disposition: Follow-up with PCP next week Of care discussed with patient in detail All questions were answered He is understanding of agreeable, comfortable with plan of care Total Time Total Time Spent Total Time Spent (In Minutes): 40 MINUTES Discharge Plan Discharge Items Patient Disposition: Home - Self-Care Reason For Visit: ILLNESS Discharge Diagnosis: COVID 19 PNEUMONIA Condition on Discharge: Good Activity: As commented below Activity Comment: GRADUALLY [id number], AMBULATE FREQUENTLY TO PREVENT BLOOD CLOTS Lifting: Wait until after follow-up appointment Exercise/Sports: Wait until after follow-up appointment Driving/Machine Use: NO DRIVING UNTIL RE-EVALUATED BY PRIMARY CARE PHYSICIAN Non-emergency contact: Primary Care Provider Call non-emergency contact if: you have any medication questions, your symptoms worsen and you have a fever Follow-up/Referrals: Michael Naranjo MD [Primary Care Provider] - 04/04/20 3:00 pm (Date & Time 04/04/2020 3:00 PM Provider Michael Naranjo MD [facility] PLEASE NOTE THAT THIS IS A TELEPHONE APPOINTMENT. YOUR PHYSICIAN WILL CALL YOU AT THE APPOINTMENT TIME. IF YOU HAVE ANY QUESTIONS, PLEASE CALL ) Diet: Heart Healthy Addtl Attending Provider Instructions: YOUR NEW MEDICATION IS DECADRON- STEROID FOR TREATMENT OF COVID PNEUMONIA. ALWAYS TAKE DECADRON WITH A FULL STOMACH. CONTINUE TO USE INCENTIVE SPIROMETER FREQUENTLY AT HOME. AMBULATE FREQUENTLY TO PREVENT BLOOD CLOT FORMATION. DRINK PLENTY OF WATER. YOU STILL NEED TO ISOLATE FOR AT LEAST 7 DAYS, AND UNTIL YOUR SYMPTOMS HAVE RESOLVED. FOLLOW UP WITH PRIMARY CARE PHYSICIAN NOTED ABOVE. CALL PRIMARY CARE PHYSICIAN OR RETURN TO THE ER IMMEDIATELY IF WITH WORSENING OF SYMPTOMS, INCLUDING SHORTNESS OF BREATH, CHEST PAIN, FEVER, LEG SWELLING. Home Isolation COVID-19 Instructions The following information about Home Isolation is from the CDC Website: https://www.cdc.gov/coronavirus/2019-ncov/hcp/ffzuyeeo-kpzogfh-dptycg.html Stay home except to get medical care People who are mildly ill with COVID-19 are able to isolate at home during their illness. You should restrict activities outside your home, except for getting medical care. Do not go to work, school, or public areas. Avoid using public transportation, ride-sharing, or taxis. Separate yourself from other people and animals in your home People: As much as possible, you should stay in a specific room and away from other people in your home. Also, you should use a separate bathroom, if available. Animals: You should restrict contact with pets and other animals while you are sick with COVID-19, just like you would around other people. Although there have not been reports of pets or other animals becoming sick with COVID-19, it is still recommended that people sick with COVID-19 limit contact with animals until more information is known about the virus. When possible, have another member of your household care for your animals while you are sick. If you are sick with COVID-19, avoid contact with your pet, including petting, snuggling, being kissed or licked, and sharing food. If you must care for your pet or be around animals while you are sick, wash your hands before and after you interact with pets and wear a face mask. Call ahead before visiting your doctor If you have a medical appointment, call the healthcare provider and tell them that you have or may have COVID-19. This will help the healthcare providers office take steps to keep other people from getting infected or exposed. Wear a face mask You should wear a face mask when you are around other people (e.g., sharing a room or vehicle) or pets and before you enter a healthcare providers office. If you are not able to wear a face mask (for example, because it causes trouble breathing), then people who live with you should not stay in the same room with you, or they should wear a face mask if they enter your room. Cover your coughs and sneezes Cover your mouth and nose with a tissue when you cough or sneeze. Throw used tissues in a lined trash can. Immediately wash your hands with soap and water for at least 20 seconds or, if soap and water are not available, clean your hands with an alcohol-based hand handtools repairer that contains at least 60% alcohol. Clean your hands often Wash your hands often with soap and water for at least 20 seconds, especially after blowing your nose, coughing, or sneezing; going to the bathroom; and before eating or preparing food. If soap and water are not readily available, use an alcohol-based hand handtools repairer with at least 60% alcohol, covering all surfaces of your hands and rubbing them together until they feel dry. Soap and water are the best option if hands are visibly dirty. Avoid touching your eyes, nose, and mouth with unwashed hands. Avoid sharing personal household items You should not share dishes, drinking glasses, cups, eating utensils, towels, or bedding with other people or pets in your home. After using these items, they should be washed thoroughly with soap and water. Clean all high-touch surfaces everyday High touch surfaces include counters, tabletops, doorknobs, bathroom fixtures, toilets, phones, keyboards, tablets, and bedside tables. Also, clean any surfaces that may have blood, stool, or body fluids on them. Use a household cleaning spray or wipe, according to the label instructions. Labels contain instructions for safe and effective use of the cleaning product including precautions you should take when applying the product, such as wearing gloves and making sure you have good ventilation during use of the product. Monitor your symptoms Seek prompt medical attention if your illness is worsening (e.g., difficulty breathing).Beforeseeking care, call your healthcare provider and tell them that you have, or are being evaluated for, COVID-19. Put on a face mask before you enter the facility. These steps will help the healthcare providers office to keep other people in the office or waiting room from getting infected or exposed. Ask your healthcare provider to call the local or state health department. Persons who are placed under active monitoring or facilitated self- monitoring should follow instructions provided by their local health department or occupational health professionals, as appropriate. When working with your local health department check their available hours. If you have a medical emergency and need to call 911, notify the dispatch personnel that you have, or are being evaluated for COVID-19. If possible, put on a face mask before emergency medical services arrive. Discontinuing home isolation Patients with confirmed COVID-19 should remain under home isolation precautions until the risk of secondary transmission to others is thought to be low. The decision to discontinue home isolation precautions should be made on a [id number] basis, in consultation with healthcare providers and affinity health partners and local health departments. Pending Studies at Discharge: No Stand-Alone Forms: My [facility], Smoking Cessation Medications and DC Order Prescriptions: New dexamethasone [Decadron] 6 mg tablet 6 mg PO DAILY Qty: 2 RF: 0 Continued amlodipine 5 mg tablet 5 mg PO QAM RF: 0 fluticasone propionate [Flonase Allergy Relief] 50 mcg/actuation [place],Suspension 2 spray INTRANASAL QAM RF: 0 albuterol sulfate 90 mcg/actuation Hfa Aerosol Inhaler 2 puff INHALATION Q4H PRN (Reason: Wheezing) RF: 0 potassium chloride 10 mEq capsule, extended release 10 meq PO 3XWK RF: 0 citalopram 10 mg tablet 10 mg PO QAM RF: 0 lisinopril 20 mg tablet 20 mg PO BID RF: 0 pantoprazole 20 mg tablet,delayed release (DR/EC) 20 mg PO QAM RF: 0 famotidine 20 mg tablet 20 mg PO BID RF: 0 furosemide 20 mg tablet 20 mg PO 3XWK RF: 0 nitroglycerin [Nitrostat] 0.3 mg tablet, sublingual 0.3 mg Sublingual DIRECTED PRN (Reason: Chest Pain) RF: 0 metoprolol succinate 25 mg tablet extended release 24 hr 12.5 mg PO DAILY RF: 0 Anoro Ellipta 62.5-25 mcg/actuation blister with device 1 inh INHALATION DAILY RF: 0 Arnuity Ellipta 100 mcg/actuation blister with device 1 inh INHALATION DAILY RF: 0 atorvastatin 40 mg tablet 40 mg PO QPM RF: 0 clopidogrel 75 mg tablet 75 mg PO QAM RF: 0 aspirin 81 mg Tablet,Delayed Release (Dr/Ec) 81 mg PO QAM RF: 0 Discharge Orders: Discharge Order (Routine); Ordered 03/30/20 Ordered By: Morales Benson Admission Data Admit Date/Time: 03/25/20 22:43 Attending Provider: Morales Benson Admit Provider: Quintin Ruiz Primary Care Provider: Michael Naranjo Other Providers: Quintin Ruiz ; Leonor Feng Other Interventions: Discharge Summary Assessment (RN) Last Done: 03/30/20 16:12
== END 2020-03-30 16:59 | disposition home or self-care (01) | DRG 178 ==
LOC: ED 19:03 → SUATTDRO 22:43 → 2S 22:43